=== PATIENT | male | born 1950 | race Caucasian/White ===

== ENCOUNTER 2019-11-23 07:20 | Outpatient (CLI) | payer OTHER, SELFPAY ==
--- NOTE | 2019-11-23 07:25 | USCV_ITS ---
BobbiBlayne Age: 68 Gender: M : 1950 Exam Date: 11/23/2019 07:32 Ordering Phys: Manan Hahn MD Technologist: Carol Hernandez Exam Location: [facility] – [place] Indication: Vision loss left eye Risk Factors: Smoker Previous Vascular Surgery: None Right Brachial BP: / Left Brachial BP: / Right Left Velocity (cm/s) Spectral Plaque Velocity (cm/s) Spectral Plaque Syst/Diast Broadening Syst/Diast Broadening 57.50/ 13.20 Prox CCA 72.60 / 18.80 59.00/ 17.10 Mid CCA 66.70 / 15.40 58.30/ 14.80 Distal CCA 62.40 / 18.80 43.50/ 16.30 Prox ICA 37.30 / 11.70 Hetro 52.80/ 21.00 Mid ICA 51.30 / 20.20 / Distal ICA 57.50 / 23.30 59.80 ECA 52.10 1.19 ICA/CCA 0.92 Antegrade Vertebral Antegrade 35.00/ 10.90 cm/s 27.20/ 9.60 cm/s Tri Subclavian Bi 66.00 60.70 FINDINGS Comparison: -2009. See measurements listed above. CONCLUSIONS Negative bilateral carotid Doppler ultrasound. Dr. Sandra Lopez MD (Electronically Signed) Final Date: 23 November 2019 08:12 S
== END 2019-11-23 07:21 | disposition home or self-care (01) ==
PROVIDERS: Family Provider Family Medicine; PCP Family Medicine; Visit Provider Family Medicine
DX: H54.62 Unqualified visual loss, left eye, normal vision right eye (principal)
CPT/HCPCS: 93880

== ENCOUNTER 2021-10-07 09:52 | Outpatient (CLI) | payer OTHER, SELFPAY ==
--- NOTE | 2021-10-07 | CT_ITS ---
WS: [id number] CT PELVIS WITH CONTRAST. HISTORY: LEFT INGUINAL MASS TECHNIQUE: Contiguous imaging is performed of the pelvis with contrast. Coronal and sagittal reformat s are reviewed. All CT scans at [facility] use at least one of these dose optimization techni ques: automated exposure control; mA and/or kV adjustment per patient size (includes targeted exams w here dose is matched to clinical indication); or iterative reconstruction. DLP: 970.84 mGycm COMPARISON: 01/31/2016 There is a large LEFT inguinal hernia. Hernia contains fat and portion of the descending colon. There is very mild narrowing of the lumen but no obstructive pattern. There is mild edema and a small amou nt of free fluid within the hernia sac. Mildly patent RIGHT inguinal canal with fat only. No herniated loops of bowel. The visualized colon and small bowel are tortuous with overlapping loops. Mild atherosclerosis within the distal aorta and iliac arteries. No free fluid or adenopathy within the pelvis. Urinary bladder is nondistended. Very mild prominence of the prostate gland. Anterior wedging of L4 with a Schmorl's node. CT/CT pelvis w con* [id number] IMPRESSION: 1. Large LEFT inguinal hernia containing fat and distal colon. There is small amount of fluid and small amount of edema within the hernia sac. There also may be a small amount of fat necrosis present. At this time there is no obstructio n but the lumen is narrowed. Patient is at risk for obstruction and ischemic ch deb. Follow-up with surgery recommended. 2. No GI tract obstruction.
[2021-10-07 11:54] LABS: Blood Urea Nitrogen 7 mg/dL (8-23); Glomerular Filtration Rate 83.4 mL/min (90-130)
== END 2021-10-07 09:53 | disposition home or self-care (01) ==
PROVIDERS: Visit Provider Nurse Practitioner
DX: K40.90 Unilateral inguinal hernia, without obstruction or gangrene, not specified as recurrent (principal)
CPT/HCPCS: 72193; 82565; 84520; Q9967

== ENCOUNTER 2022-10-06 07:35 | Outpatient (CLI) | payer OTHER, SELFPAY ==
--- NOTE | 2022-10-06 08:00 | USCV_ITS ---
Blayne Juarez Age: 71 Gender: M : 1950 Exam Date: 10/06/2022 07:59 Ordering Phys: Enrique Gentile M.D ([email or web address]) Technologist: [place] [facility] [place]: murmur BP: 135 / 73 HR: 68 Rhythm: Sinus Technical Quality: Adequate MEASUREMENTS (Male / Female) Normal Values 2D ECHO LV Diastolic Diameter PLAX 3.6 cm 4.2 - 5.9 / 3.9 - 5.3 cm LV Systolic Diameter PLAX 2.8 cm IVS Diastolic Thickness 1.4 cm 0.6 - 1.0 / 0.6 - 0.9 cm IVS Systolic Thickness 1.8 cm LVPW Diastolic Thickness 1.7 cm 0.6 - 1.0 / 0.6 - 0.9 cm LVPW Systolic Thickness 1.4 cm LVOT Diameter 2.0 cm LV Ejection Fraction 2D Teich 48.4 % LV Ejection Fraction MOD 2C 73.0 % LV Ejection Fraction 2C AL 72.9 % LA Diameter 4.7 cm M-MODE LV Diastolic Diameter MM 6.5 cm 4.2 - 5.9 / 3.9 - 5.3 cm LV Systolic Diameter MM 4.1 cm LV Ejection Fraction MM Teich 65.6 % IVS Diastolic Thickness MM 1.4 cm 0.6 - 1.0 / 0.6 - 0.9 cm IVS Systolic Thickness MM 2.0 cm LVPW Diastolic Thickness MM 1.7 cm 0.6 - 1.0 / 0.6 - 0.9 cm LVPW Systolic Thickness MM 2.2 cm RV Diastolic Diameter MM 2.4 cm Aortic Annulus Diameter 4.5 cm LA Ao Ratio MM 1.0 MV E Point Septal Separation 1.2 cm DOPPLER AV Peak Velocity 288.0 cm/s LVOT Peak Velocity 84.0 cm/s AV Area Cont Eq vti 0.9 cm squared AV Area Cont Eq pk 0.9 cm squared MV Area PHT 5.0 cm squared Mitral E to A Ratio 1.1 MV E' Velocity 45.5 cm/s Mitral E to MV E' Ratio 12.0 Mitral E to LV E' Lateral Ratio 11.5 Mitral E to LV E' Septal Ratio 12.7 TR Peak Velocity 299.8 cm/s TR Peak Gradient 35.9 mmHg TV Peak E Velocity 76.0 cm/s Right Atrial Pressure 3.0 mmHg Pulmonary Artery Systolic Pressu 38.9 mmHg FINDINGS Left Ventricle Left ventricle is normal in size. LV systolic function is normal with EF of 55 to 60%. No regional wall motion abnormalities are seen. Right Ventricle Normal in size and function Right Atrium Normal in size Left Atrium Normal in size Mitral Valve Structurally normal mitral valve. Trace mitral regurgitation Aortic Valve Not well visualized. Moderate to severe aortic stenosis with aortic valve area of 0.90cm2 and mean gradient across aortic valve of 20mmHg. Mild aortic regurgitation Tricuspid Valve Mild tricuspid regurgitation. Insufficient TR jet to evaluate RVSP Pulmonic Valve Not well-visualized Pericardium Normal Aorta Normal in size IVC CONCLUSIONS Technically limited quality echocardiogram because of poor ultrasonic windows. LV systolic function is normal with EF of 55 to 60%. Trace mitral regurgitation Moderate to severe aortic stenosis with aortic valve area of 0.90 cm calculated. Prosthetic valve with 20 mmHg Mild aortic regurgitation No comparison studies are available. Enrique Gentile MD (Electronically Signed) Final Date: 20 October 2022 09:22 S
== END 2022-10-06 07:36 | disposition home or self-care (01) ==
PROVIDERS: PCP Family Medicine; Visit Provider Internal Medicine
DX: I08.0 Rheumatic disorders of both mitral and aortic valves (principal); Z95.2 Presence of prosthetic heart valve; R06.02 Shortness of breath
CPT/HCPCS: 93306

== ENCOUNTER 2023-07-13 12:02 | Outpatient (CLI) | payer OTHER, SELFPAY ==
--- NOTE | 2023-07-13 12:15 | USCV_ITS ---
Blayne Martines Age: 72 Gender: M : 1950 Exam Date: 07/13/2023 12:51 Ordering Phys: Enrique Gentile M.D ([email or web address]) Technologist: NORIS Exam Location: [facility] [place] Indication: AORTIC STENOSIS BP: 130 / 86 HR: 68 Rhythm: Sinus Technical Quality: Poor secondary to COPD MEASUREMENTS (Male / Female) Normal Values 2D ECHO LVOT Diameter 2.0 cm LV Ejection Fraction MOD 2C 68.4 % LV Ejection Fraction 2C AL 69.4 % LA Width 3.2 cm LA Height 4.5 cm RA Width 3.4 cm RA Height 4.0 cm DOPPLER AV Peak Velocity 269.0 cm/s LVOT Peak Velocity 88.0 cm/s AV Area Cont Eq vti 1.1 cm squared AV Area Cont Eq pk 1.0 cm squared MV Peak Velocity 100.0 cm/s MV Area PHT 2.1 cm squared Mitral E to A Ratio 0.8 MV E' Velocity 32.0 cm/s Mitral E to MV E' Ratio 7.9 Mitral E to LV E' Lateral Ratio 8.3 Mitral E to LV E' Septal Ratio 7.6 TR Peak Velocity 166.3 cm/s TR Peak Gradient 11.1 mmHg TR Mean Velocity 144.6 cm/s TR Mean Gradient 8.3 mmHg TR Velocity Time Integral 53.0 cm TV Peak E Velocity 60.0 cm/s Right Atrial Pressure 8.0 mmHg Pulmonary Artery Systolic Pressu 19.1 mmHg FINDINGS Left Ventricle Technically limited quality echocardiogram because of poor ultrasonic windows. LV systolic function is normal with EF of 60-65%. No regional wall motion abnormalities are seen. Grade 1 diastolic dysfunction Right Ventricle Normal in size and function Right Atrium Normal in size Left Atrium Normal size Mitral Valve Grossly normal. Mild mitral regurgitation Aortic Valve Not well visualized. Moderate aortic stenosis with aortic valve area of 1 cm2 and mean gradient across aortic valve of 24 mmHg. Tricuspid Valve Trace tricuspid regurgitation. Insufficient TR jet to calculate RVSP. Pulmonic Valve Not well visualized Pericardium Normal Aorta Not well visualized IVC Not well visualized CONCLUSIONS Technically limited quality echocardiogram because of poor ultrasonic windows. LV systolic function is normal with EF of 60-65% Grade 1 diastolic dysfunction Aortic valve is not well-visualized. Moderate aortic stenosis with aortic valve area of 1 cm. Mean gradient across aortic valve of 24 mmHg. Trace tricuspid regurgitation Compared to prior echocardiogram from 10/06/2022, no significant changes are seen Enrique Gentile MD (Electronically Signed) Final Date: 30 July 2023 14:37 S
== END 2023-07-13 12:03 | disposition home or self-care (01) ==
PROVIDERS: PCP Family Medicine; Visit Provider Internal Medicine
DX: I35.0 Nonrheumatic aortic (valve) stenosis (principal); I25.10 Atherosclerotic heart disease of native coronary artery without angina pectoris; I51.89 Other ill-defined heart diseases
CPT/HCPCS: 93306

== ENCOUNTER → 2024-04-25 08:23 | Outpatient (CLI) | payer OTHER, SELFPAY ==
--- NOTE | 2024-04-25 08:45 | USCV_ITS ---
Blayne Martines Age: 73 Gender: M : 1950 Exam Date: 04/25/2024 08:29 Ordering Phys: Enrique Gentile M.D ([email or web address]) Technologist: NORIS Exam Location: [facility] – [place] Indication: AORTIC STENOSIS BP: 122 / 64 HR: 65 Rhythm: Sinus Technical Quality: Suboptimal MEASUREMENTS (Male / Female) Normal Values 2D ECHO LV Ejection Fraction MOD 2C 67.1 % LV Ejection Fraction 2C AL 69.0 % RA Systolic Volume 4C AL 19.4 ml RA Systolic Volume 4C MOD 17.6 ml LA Sys Volume AL 26.1 cm cubed LA Sys Volume Index AL 11.6 cm cubed/m squared DOPPLER AV Peak Velocity 292.0 cm/s LVOT Peak Velocity 106.0 cm/s MV Peak Velocity 98.0 cm/s MV Area PHT 2.3 cm squared Mitral E to A Ratio 0.9 TR Peak Velocity 182.0 cm/s TR Peak Gradient 13.2 mmHg TR Mean Velocity 143.0 cm/s TR Mean Gradient 9.2 mmHg TR Velocity Time Integral 49.1 cm TV Peak E Velocity 67.0 cm/s FINDINGS Left Ventricle Normal left ventricular size, systolic function and wall thickness, with no regional wall motion abnormalities. Left ventricular ejection fraction is estimated at 60 %. Grade I/IV diastolic dysfunction (abnormal relaxation filling pattern), normal to mildly elevated filling pressures. Right Ventricle The right ventricle is normal in size and function. Right Atrium The right atrium is normal in size. Left Atrium The left atrium is normal in size. Mitral Valve Structurally normal mitral valve without significant stenosis or prolapse. There is no mitral regurgitation. Aortic Valve Structurally normal aortic valve without significant sclerosis or stenosis. There is no aortic regurgitation. Tricuspid Valve Structurally normal tricuspid valve without significant stenosis or regurgitation. Pulmonary artery systolic pressure is normal. Pulmonic Valve Structurally normal pulmonic valve without significant stenosis. There is no pulmonic regurgitation. Pericardium Normal pericardium without effusion. Aorta Normal ascending aorta dimension. IVC The inferior vena cava appears normal. CONCLUSIONS 1-Normal left ventricular size, systolic function and wall thickness, with no regional wall motion abnormalities. Left ventricular ejection fraction is estimated at 60 %. Grade I/IV diastolic dysfunction (abnormal relaxation filling pattern), normal to mildly elevated filling pressures. 2-No significant valve abnormalities. 3-There is no pericardial effusion. 4-Right atrial pressure is around 5 mm of mercury. Deisi Hernandez MD (Electronically Signed) Final Date: 25 April 2024 21:27 S
== END | disposition home or self-care (01) ==
LOC: RAD 08:22
PROVIDERS: PCP Family Medicine; Visit Provider Internal Medicine
DX: I50.30 Unspecified diastolic (congestive) heart failure (principal)
CPT/HCPCS: 93306

== ENCOUNTER 2024-12-08 17:04 | Inpatient (IN) | payer OTHER, SELFPAY ==
[2024-12-08] VITALS (15 sets, daily range): BP systolic 99–121; BP diastolic 49–94; PULSE 82–102; RESP 16–20; TEMP 37.1–39.1; O2SAT 90–94; BMI 27.8
--- NOTE | 2024-12-08 17:18 | ECG_ITS ---
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 Measurements Intervals [place] Rate: 100 P: 71 MO: 167 QRS: 61 QRSD: 85 T: 73 QT: 322 QTc: 416 Interpretive Statements SINUS TACHYCARDIA MINIMAL ST DEPRESSION [0.025+ mV ST DEPRESSION] Compared to ECG 11/05/2015 05:24:13 ST (T wave) deviation now present Sinus bradycardia no longer present Electronically Signed On 12-09-2024 13:17:53 EXTRUSION FORMER by Enrique Gentile M.D. [email or web address]
--- NOTE | 2024-12-08 17:18 | XRR_ITS ---
PROCEDURE INFORMATION: Exam: XR Chest Exam date and time: 12/08/2024 6:43 PM Age: 73 years old Clinical indication: Shortness of breath; SOB TECHNIQUE: Imaging protocol: Radiologic exam of the chest. Views: 1 view. COMPARISON: No relevant prior studies available. FINDINGS: Lungs: Severe hyperinflation. Mild interstitial prominence and probable mild fibrosis. Pulmonary vascularity is within normal limits. No consolidation. Pleural spaces: Unremarkable. No pleural effusion. No pneumothorax. Heart/Mediastinum: Unremarkable. No cardiomegaly. Bones/joints: No acute abnormality. XR/XR chest 1V portable [id number] IMPRESSION: No acute findings.
[2024-12-08 17:45] LABS: Basophils % 0.8 %; Eosinophils % 0.4 %; Hematocrit 42.3 % (37-53); Lymphocytes # 0.2 10^3/uL (0.8-4.8); Lymphocytes % 4.9 %; Mean Corpuscular HGB Conc 33.6 g/dL (30-55); Mean Corpuscular Hemoglobin 32.9 pg (27-33); Mean Corpuscular Volume 98.1 fl (82-101); Mean Platelet Volume 9.1 fL (7.4-10.4); Monocytes # 0.3 10^3/uL (0.2-0.9); Monocytes % 6.7 %; Neutrophils # 4.25 10^3/uL (1.8-7.7); Nucleated Red Blood Cells % 0 %; Platelet Count 110 10^3/cmm (157-399); Red Blood Count 4.31 10^6/uL (3.85-5.65); Red Cell Distribution Width 13.2 % (12.1-15.1); White Blood Count 4.89 10^3/uL (3.29-11.43)
--- NOTE | 2024-12-08 17:50 | W.ED.SOB ---
HPI - SOB/Dyspnea General: Chief Complaint: Shortness of Breath/Dyspnea Stated Complaint: SOB Time Seen by Provider: 12/08/24 17:43 History of Present Illness: HPI Narrative: 73-year-old man with a history of tobacco dependence coronary artery disease, hyperlipidemia and obstructive sleep apnea who presents emergency room with shortness of breath. He is febrile on presentation. says he has been somewhat confused. Symptoms started yesterday. He has had increased cough. Increase shortness of breath. No chest pain. No abdominal pain. No vomiting. Related Data Previous Rx's Medication Instructions Recorded aspirin 81 mg tablet,delayed 81 mg PO DAILY #90 tabs 02/24/24 release nitroglycerin 0.4 mg sublingual 0.4 mg sublingual Q5M PRN chest 02/24/24 tablet pain #25 tabs Allergies Allergy/AdvReac Type Severity Reaction Status Date / Time No Known Allergies Allergy Verified 12/08/24 17:11 Review of Systems Narrative: Constitutional symptoms: Negative except as documented in HPI. Skin symptoms: Negative except as documented in HPI. Eye symptoms: Negative except as documented in HPI. ENMT symptoms: Negative except as documented in HPI. Respiratory symptoms: Negative except as documented in HPI. Cardiovascular symptoms: Negative except as documented in HPI. Gastrointestinal symptoms: Negative except as documented in HPI. Genitourinary symptoms: Negative except as documented in HPI. Musculoskeletal symptoms: Negative except as documented in HPI. Neurologic symptoms: Negative except as documented in HPI. Psychiatric symptoms: Negative except as documented in HPI. Endocrine symptoms: Negative except as documented in HPI. [facility] ED PFSH: Medical History Thrombocytopenia Tobacco abuse SAMY (obstructive sleep apnea) ASHD (arteriosclerotic heart disease) Dyslipidemia Myocardial infarction Surgical History S/P PTCA (percutaneous transluminal coronary angioplasty) Family History Father Parkinson disease Social History Smoking and tobacco/nicotine status: current every day tobacco/nicotine user cigarettes Packs smoked per day: 1.5 Alcohol intake: current Alcohol intake frequency: holidays/special occasions only Household members: spouse Marital status: service: No Current occupational status: employed Current gender identity: Male Physical Exam Narrative: EXAM NARRATIVE: General: Alert, no acute distress. Skin: Warm, dry. Head: Normocephalic, atraumatic. Neck: Supple, trachea midline. Eye: Extraocular movements are intact. Ears, nose, mouth and throat: Oral mucosa moist. Cardiovascular: Regular rate and rhythm, Normal peripheral perfusion. Respiratory: coarse, scattered wheeze, mild increased wob. tachypnea, breath sounds are equal, Symmetrical chest wall expansion. Gastrointestinal: Soft, Nontender, Non distended, Normal bowel sounds. Musculoskeletal: Normal ROM, no deformity. Neurological: Alert and oriented to person, No focal neurological deficit observed. Psychiatric: Cooperative, appropriate mood & affect. Course Vital Signs: Vital signs: Vital Signs Temperature 100.7 F H 12/08/24 19:15 Pulse Rate 100 12/08/24 20:32 Respiratory Rate 18 12/08/24 20:32 Blood Pressure 100/63 12/08/24 20:32 Pulse Oximetry 90 12/08/24 20:32 Oxygen Delivery Me thod Nasal Cannula 12/08/24 19:06 Oxygen Flow Rate 2 12/08/24 19:06 MDM - SOB/Dyspnea Medical Decision Making Differential diagnosis for patient with shortness of breath includes but is not limited to and based on the above HPI, review of systems and physical exam: Pneumonia. Bronchitis. Asthma or COPD with acute exacerbation. Acute coronary syndrome / [place]. Pulmonary embolism. Anxiety. Congestive heart failure. Viral infections including influenza and Covid-19. Atrial fibrillation. Anxiety. Pleural effusion. Pneumothorax. Orders placed to evaluate differential diagnosis based on the above differential, HPI and physical exam Chest x-ray: No acute process. No infiltrate. No pneumothorax. This was reviewed and interpreted by myself the emergency room physician. I also reviewed the radiology report. Lab Review: Laboratory results were reviewed and interpreted by myself the emergency room physician. No leukocytosis. No anemia. No renal failure. Sodium is a bit low at 129. Patient is positive for influenza. I reviewed the patient's medical record. Reexamination: Patient has had a continued increasing oxygen requirements. Still with quite a bit of wheeze. Mild increased work of breathing. Has had increased oxygen requirements up to 4 L nasal cannula now. Consultation: I spoke with Dr. Landeros who is on-call for the hospitalist service who agrees to admission. Assessment and plan: Influenza A Hypoxemia Tobacco dependence COPD with acute exacerbation Fever ?IV Solu-Medrol, IV doxycycline. IV Tylenol. Updrafts. Patient has had some increased oxygen requirements and is now on 4 L. -I discussed the patient with the hospitalist on-call who is admitting the patient. - Discussed findings and plan with patient. Answered any questions. - All laboratory values were reviewed and interpreted personally by myself, the ER physician - All imaging was reviewed and interpreted personally by myself, the ER physician. - Evaluation and treatment of this problem were appropriate in the emergency setting Critical care -I spent a total of >35 minutes of critical care time managing the patient, independent of any other practitioner. -The time involved in the performance of separately reportable procedures was not counted towards critical care time. Lab Data 12/08/24 17:36 12/08/24 17:36 Labs/Radiology: Radiology Impressions Chest X-Ray 12/08/24 17:18 IMPRESSION: No acute findings. Laboratory Results WBC 4.89 10^3/uL (3.29-11.43) 12/08/24 17:36 RBC 4.31 10^6/uL (3.85-5.65) 12/08/24 17:36 Hgb 14.20 g/dL (11.27-16.99) 12/08/24 17:36 Hct 42.3 % (37-53) 12/08/24 17:36 MCV 98.1 fl (82-101) 12/08/24 17:36 MCH 32.9 pg (27-33) 12/08/24 17:36 MCHC 33.6 g/dL (30-55) 12/08/24 17:36 RDW 13.2 % (12.1-15.1) 12/08/24 17:36 Plt Count 110 10^3/cmm (157-399) L 12/08/24 17:36 MPV 9.1 fL (7.4-10.4) 12/08/24 17:36 Neut % (Auto) 87.0 % 12/08/24 17:36 Lymph % (Auto) 4.9 % 12/08/24 17:36 Stanley % (Auto) 6.7 % 12/08/24 17:36 Eos % (Auto) 0.4 % 12/08/24 17:36 Baso % (Auto) 0.8 % 12/08/24 17:36 Neut # (Auto) 4.25 10^3/uL (1.8-7.7) 12/08/24 17:36 Lymph # (Auto) 0.2 10^3/uL (0.8-4.8) L 12/08/24 17:36 Stanley # (Auto) 0.3 10^3/uL (0.2-0.9) 12/08/24 17:36 Eos # (Auto) 0.0 10^3/uL (0.0-0.8) 12/08/24 17:36 Baso # (Auto) 0.0 10^3/uL (0.0-0.1) 12/08/24 17:36 Nucleated RBC % (auto) 0 % 12/08/24 17:36 Nucleated RBCs # 0.0 /100WBC 12/08/24 17:36 Specimen Type Arterial 12/08/24 17:52 Sample Site Radial, right 12/08/24 17:52 ABG pH 7.45 (7.35-7.45) 12/08/24 17:52 ABG pCO2 33.6 mmHg (35-45) L 12/08/24 17:52 ABG pO2 64.6 mmHg (80.0-100.0) L 12/08/24 17:52 ABG HCO3 23.1 mmol/L (22-26) 12/08/24 17:52 ABG O2 Saturation 95.0 12/08/24 17:52 ABG Base Excess -0.3 mmol/L (-2.0-2.0) 12/08/24 17:52 Sean Test Pos 12/08/24 17:52 A-a O2 Gradient 5.5 mmHg (5-10) 12/08/24 17:52 Hematocrit 45.0 % (42-52) 12/08/24 17:52 Hgb O2 Saturation 91.9 % (95-100) L 12/08/24 17:52 Carboxyhemoglobin 2.3 %THgb (0.4-20.1) 12/08/24 17:52 Methemoglobin 0.9 % (0.4-1.5) 12/08/24 17:52 Total Hemoglobin 14.7 g/dL (14-18) 12/08/24 17:52 Sodium 131.0 mmol/L (131-143) 12/08/24 17:52 Potassium 3.9 mmol/L (3.5-5.0) 12/08/24 17:52 Glucose 110.0 mg/dL (70-115) 12/08/24 17:52 Ionized Calcium 1.2 mmol/L (1.1-1.4) 12/08/24 17:52 O2 Delivery Device Nc 12/08/24 17:52 O2 Liters/Min 2.0 % 12/08/24 17:52 In Home Sales Consultant ID [employer] 12/08/24 17:52 Sodium 129 mmol/L (136-145) L 12/08/24 17:36 Potassium 4.3 mmol/L (3.5-5.1) 12/08/24 17:36 Chloride 94 mmol/L (98-107) L 12/08/24 17:36 Carbon Dioxide 23 mmol/L (22-29) 12/08/24 17:36 Anion Gap 16.3 (5-19) 12/08/24 17:36 BUN 14 mg/dL (8-23) 12/08/24 17:36 Creatinine 1.0 mg/dL (0.7-1.2) 12/08/24 17:36 GFR Calculation Not Reportable 12/08/24 17:36 Glucose 109 mg/dL (65-115) 12/08/24 17:36 Calculated Osmolality 269 mOsm/kg (285-295) L 12/08/24 17:36 Lactic Acid 2.2 mmol/L (0.5-2.2) 12/08/24 17:36 Lactic Acid (Sepsis) 2.5 mmol/L (0.5-2.2) H 12/08/24 18:24 Calcium 8.5 mg/dL (8.5-10.5) 12/08/24 17:36 Total Bilirubin 1.9 mg/dL (0.15-1.2) H 12/08/24 17:36 AST 56 U/L (0-40) H 12/08/24 17:36 ALT 31 U/L (0-41) 12/08/24 17:36 Alkaline Phosphatase 164 U/L (40-130) H 12/08/24 17:36 C-Reactive Protein 15.9 mg/L (0.0-4.9) H 12/08/24 17:36 NT-Pro-B Natriuret Pep 266 pg/mL (0-125) H 12/08/24 17:36 Total Protein 6.7 g/dL (6.6-8.7) 12/08/24 17:36 Albumin 3.4 g/dL (3.5-5.2) L 12/08/24 17:36 Globulin 3.3 g/dL (1.3-4.6) 12/08/24 17:36 Procalcitonin 0.20 ng/mL (0-0.5) 12/08/24 17:36 Urine Color Dickey (Yellow) A 12/08/24 18:28 Urine Appearance Clear (CLEAR) 12/08/24 18:28 Urine pH 5.5 (5-7) 12/08/24 18:28 Ur Specific [place] 1.030 (1.005-1.030) 12/08/24 18:28 Urine Protein 1+ (Negative) A 12/08/24 18:28 Urine Glucose (UA) Negative (Normal) 12/08/24 18:28 Urine Ketones Negative (Negative) 12/08/24 18:28 Urine Blood Negative (Negative) 12/08/24 18:28 Urine Nitrate Negative (Negative) 12/08/24 18:28 Urine Bilirubin 1+ (Negative) H 12/08/24 18:28 Urine Urobilinogen 2.0 mg/dL (Negative) H 12/08/24 18:28 Ur Leukocyte Esterase Negative (Negative) 12/08/24 18:28 Urine RBC 0-2 /hpf (0-2) 12/08/24 18:28 Urine WBC 0-5 /hpf (0-5) 12/08/24 18:28 Ur Squamous Epith Cells 0-5 /hpf (0-5) 12/08/24 18:28 Amorphous Sediment Not Reportable 12/08/24 18:28 Urine Bacteria None seen /hpf (NONE) 12/08/24 18:28 Hyaline Casts 1.21 /lpf 12/08/24 18:28 Coronavirus (PCR) Negative (Negative) 12/08/24 17:55 Influenza A (PCR) Positive (Negative) 12/08/24 17:55 Influenza Type B (PCR) Negative (Negative) 12/08/24 17:55 RSV (PCR) Negative (Negative) 12/08/24 17:55 All radiology interpretation(s) finalized by discharge Discharge Plan Discharge Condition: Stable Prescriptions: No Action aspirin 81 mg tablet,delayed release (DR/EC) 81 mg PO DAILY Qty: 90 0RF nitroglycerin 0.4 mg tablet, sublingual 0.4 mg sublingual Q5M PRN (Reason: chest pain) Qty: 25 2RF Rx Instructions: do not exceed 3 doses per episode Referrals: Trisha Song MD [Primary Care Provider] - Coding Level of Care Code ED School Based Therapist for Douglas Arciniega
[2024-12-08 18:00] LABS: Lactic Sepsis W/Reflex 2.2 mmol/L (0.5-2.2)
[2024-12-08] MEDS: methylPREDNISolone sod succ 125 mg/2 mL INJ IVP (18:00)
[2024-12-08 18:03] LABS: ABG PCO2 33.6 mmHg (35-45); ABG PH Result 7.45 (7.35-7.45); Alveolar-Arterial Oxygen Gradi 5.5 mmHg (5-10); Base Excess ABG -0.3 mmol/L (-2.0-2.0); Blood Gas Allen Test Pos; Blood Gas Operator Identificat WALCI; Blood Gas Sample Site Radial, right; Blood Gas Sample Type Arterial; Carboxyhemoglobin 2.3 %THgb (0.4-20.1); HCO3 ABG 23.1 mmol/L (22-26); HGB O2 Sat 91.9 % (95-100); Ionized Calcium Level - ABG 1.2 mmol/L (1.1-1.4); Methemoglobin 0.9 % (0.4-1.5); Oxygen Device NC; PO2 ABG 64.6 mmHg (80.0-100.0); Potassium Level - ABG 3.9 mmol/L (3.5-5.0); Total Hemoglobin 14.7 g/dL (14-18)
[2024-12-08 18:04] LABS: Reflex Lactate Order REFLEX LACTIC ORDERD
[2024-12-08] MEDS: albuterol 2.5 mg/3 mL Neb INHALATION (18:05)
[2024-12-08] MEDS: ipratropium-albuterol 3 mL Neb INHALATION (18:05)
[2024-12-08 18:12] LABS: Alanine Aminotransferase 31 U/L (0-41); Albumin Level 3.4 g/dL (3.5-5.2); Alkaline Phosphatase 164 U/L (40-130); Anion Gap 16.3 (5-19); Aspartate Amino Transferase 56 U/L (0-40); Blood Urea Nitrogen 14 mg/dL (8-23); Calcium 8.5 mg/dL (8.5-10.5); Carbon Dioxide 23 mmol/L (22-29); Chloride 94 mmol/L (98-107); Creatinine Clr Calc Pharmacy 77.9381; Globulin 3.3 g/dL (1.3-4.6); Glucose 109 mg/dL (65-115); NT Pro B Type Natriuretic Pept 266 pg/mL (0-125); Osmolality Calculated 269 mOsm/kg (285-295); Potassium 4.3 mmol/L (3.5-5.1); Sodium 129 mmol/L (136-145); Total Bilirubin 1.9 mg/dL (0.15-1.2); Total Protein 6.7 g/dL (6.6-8.7)
[2024-12-08 18:22] LABS: C Reactive Protein 15.9 mg/L (0.0-4.9)
[2024-12-08 18:39] LABS: Bilirubin Urine 1+ (Negative); Blood Urine Negative (Negative); Glucose Urine UA Negative (Normal); Ketones Urine Negative (Negative); Leukocyte Esterase Urine Negative (Negative); Nitrate Urine Negative (Negative); Protein Urine 1+ (Negative); Urine Appearance Clear (CLEAR); pH Urine 5.5 (5-7)
[2024-12-08 18:42] LABS: Bacteria Urine None Seen /hpf; Hyaline Casts Urine 1.21 /lpf; RBC Urine 0-2 /hpf (0-2); Squamous Epithelial Cell Urine 0-5 /hpf (0-5); WBC Urine 0-5 /hpf (0-5)
[2024-12-08 18:45] LABS: Urine Color Orange (Yellow)
[2024-12-08 19:06] LABS: Lactic Acid level (Lactate) 2.5 mmol/L (0.5-2.2)
--- NOTE | 2024-12-08 19:12 | PC.NURSE ---
oxygen increased to 3L NC due to consistent saturations 89-90% on 2L, Pt saturation improved to 91%
[2024-12-08 19:21] LABS: Covid PCR NEGATIVE (Negative); Influenza A POSITIVE (Negative); Influenza B NEGATIVE (Negative); Respiratory Syncytial Virus Ce NEGATIVE (Negative)
[2024-12-08] MEDS: doxycycline 100 MG in sodium chloride 0.9% (plus) 100 ML IV (20:07)
--- NOTE | 2024-12-08 20:31 | PC.NURSE ---
Pt was placed on 4L NC due to continued saturation 89-90% on 3L
[2024-12-08] MEDS: acetaminophen 1,000 MG/100 ML PIGGYBACK 400 MG IV (20:46)
--- NOTE | 2024-12-08 22:38 | PC.NURSE ---
Bladder scan completed and shows 96ml urine in bladder, assisted pt in standing to urinate, pt only able to urinate about 20 ml dark yellow/tea color urine
--- NOTE | 2024-12-08 23:01 | P.HP_ITS ---
Providers/Chief Complaint 2 Admitting Physician: Deisi Landeros MD Primary Care Provider: Trisha Song MD Chief Complaint: SOB History of Present Illness Blayne Martines Jr is a 73 year old male Who has been sick for last 24 hours presented to the hospital worsening shortness of breath cough and hypoxia. At baseline patient does not use any oxygen at home, does not have any history of diabetes. Has history of coronary disease. He does have official diagnosis of sleep apnea but does not use any CPAP at night. Patient is stating that he has been coughing a lot since yesterday and today his symptoms got worse. He is extremely fatigued lethargic. He has not noticed any diarrhea but endorsing fever with excessive bouts of cough. In the ER he has been diagnosed with influenza A requiring 2 L of oxygen. Patient does have history of diastolic congestive heart failure he has received judicious IV fluid in the ER, 2 L Patient clinically looks dehydrated with hyponatremia, Review of Systems 2 Const: Reports: fever(s) Eyes: Denies: change in vision ENMT: Denies: throat pain Card: Denies: chest pain Resp: Reports: dyspnea GI: Denies: abdominal pain : Reports: urinary dribbling Medications/Allergies Home Medications Medication Instructions Recorded Confirmed Last Taken Type aspirin 81 mg tablet,delayed 81 mg PO DAILY #90 tabs 02/24/24 07/24/24 Unknown Rx release nitroglycerin 0.4 mg sublingual 0.4 mg sublingual Q5M PRN chest 02/24/24 07/24/24 Unknown Rx tablet pain #25 tabs Allergies Allergy/AdvReac Type Severity Reaction Status Date / Time No Known Allergies Allergy Verified 12/08/24 17:11 PFSH Acute 2 PFSH: Medical History Thrombocytopenia Tobacco abuse SAMY (obstructive sleep apnea) ASHD (arteriosclerotic heart disease) Dyslipidemia Myocardial infarction Surgical History S/P PTCA (percutaneous transluminal coronary angioplasty) Family History Father Parkinson disease Social History Smoking and tobacco/nicotine status: current every day tobacco/nicotine user cigarettes Packs smoked per day: 1.5 Alcohol intake: current Alcohol intake frequency: holidays/special occasions only Household members: spouse Marital status: service: No Current occupational status: employed Current gender identity: Male Vitals/I&O/Wt Last Vital Signs Temp 99.3 F 12/08/24 21:30 Pulse 100 12/08/24 22:08 Resp 16 12/08/24 22:08 BP 107/49 12/08/24 21:26 Pulse Ox 90 12/08/24 22:08 O2 Del Method Nasal Cannula 12/08/24 19:06 O2 Flow Rate 2 12/08/24 19:06 12/08/24 12/08/24 12/09/24 14:59 22:59 06:59 Intake Total 200 / 200 Balance 200 / 200 Weight last 48 hrs Weight 92.986 kg Physical Exam 2 Narrative: Patient clinically dehydrated Currently on 2 L Tachycardia Awake and alert Nonfocal neuroexam Generalized weakness and fatigue Mild rhonchi on lung auscultation Abdomen soft Lower extremity no edema Pleasant and cooperative No sign of meningitis Awake and alert AO x 4 at the bedside Data 12/08/24 17:36 12/08/24 17:36 Micro: Microbiology 12/08/24 18:26 Blood Culture - Preliminary Blood SPECIMEN COLLECTED 12/08/24 18:24 Blood Culture - Preliminary Blood SPECIMEN COLLECTED A&P Assessment and plan (1) SAMY (obstructive sleep apnea): (2) Hypoxia: (3) Influenza A: (4) Sepsis: Plan Sepsis related to influenza A Hypoxia/acute onset Criteria met with fever tachypnea tachycardia lactic acid Endorgan damage requiring oxygen Will give judicious IV fluids because of patient's diastolic heart failure history Will give 2 L IV bolus Patient has cap refill less than 3 seconds No signs of skin mottling Low blood pressure with hyponatremia Continue IV fluids overnight Add Tamiflu Check procalcitonin, hold off on antibiotics Add IV steroids DuoNeb treatment Patient has history of coronary disease No active chest pain History of obstructive sleep apnea does not use CPAP or oxygen at home DVT prophylaxis Lovenox Cardiac diet Check D-dimer, procalcitonin AST higher than ALT check alcohol level Will give him antitussive and cough suppressant Repeat lactic acid in the morning Attestations 2 Medical Necessity Statement*: More than 2 midnights anticipated Diagnoses SAMY (obstructive sleep apnea) G47.33 Hypoxia R09.02 Influenza A J10.1 Sepsis A41.9
[2024-12-08] MEDS: guaiFENesin-codeine UDC 10 mL 5 ML PO (23:49)
[2024-12-08] MEDS: enoxaparin 40 mg/0.4 mL Syringe SUBCUT (23:49)
[2024-12-08] MEDS: sodium chloride 0.9% 1,000 ML 999 ML IV (23:50)
[2024-12-09] VITALS (11 sets, daily range): BP systolic 95–102; BP diastolic 50–61; PULSE 65–91; RESP 16–20; TEMP 36.6–36.9; O2SAT 91–97; BMI 27.3
[2024-12-09 00:17] LABS: D Dimer 2.46 ug/mLFEU (0-0.59)
[2024-12-09 00:28] LABS: Procalcitonin 0.28 ng/mL (0-0.5); Thyroid Stimulating Hormone 0.43 uIU/mL (0.27-4.20)
[2024-12-09] MEDS: sodium chloride 0.9% 1,000 ML 999 ML IV (00:45)
[2024-12-09] MEDS: oseltamivir phosphate 75 mg Capsule PO ×3 (01:02→17:17)
[2024-12-09] MEDS: benzonatate 100 mg Capsule 200 MG PO ×2 (01:02→11:42)
[2024-12-09] MEDS: sodium chloride 0.9% 1,000 ML 75 ML IV (01:43)
[2024-12-09 02:30] LABS: Basophils % 0.5 %; Eosinophils # 0.1 10^3/uL (0.0-0.8); Eosinophils % 2.9 %; Hematocrit 35.8 % (37-53); Lymphocytes # 0.2 10^3/uL (0.8-4.8); Lymphocytes % 5.2 %; Mean Corpuscular HGB Conc 33.2 g/dL (30-55); Mean Corpuscular Hemoglobin 33.1 pg (27-33); Mean Corpuscular Volume 99.4 fl (82-101); Mean Platelet Volume 9.6 fL (7.4-10.4); Monocytes # 0.1 10^3/uL (0.2-0.9); Monocytes % 3.3 %; Neutrophils # 3.68 10^3/uL (1.8-7.7); Neutrophils % 87.6 %; Nucleated Red Blood Cells % 0 %; Platelet Count 82 10^3/cmm (157-399); Red Cell Distribution Width 13.4 % (12.1-15.1)
[2024-12-09 02:57] LABS: Lactic Sepsis W/Reflex 2.5 mmol/L (0.5-2.2)
[2024-12-09 02:58] LABS: Anion Gap 13.1 (5-19); Blood Urea Nitrogen 15 mg/dL (8-23); C Reactive Protein 26.9 mg/L (0.0-4.9); Calcium 7.6 mg/dL (8.5-10.5); Carbon Dioxide 21 mmol/L (22-29); Chloride 99 mmol/L (98-107); Creatinine Clr Calc Pharmacy 77.3642; Glucose 121 mg/dL (65-115); Magnesium 1.8 mg/dL (1.7-2.3); Osmolality Calculated 270 mOsm/kg (285-295); Phosphorus 2.8 mg/dL (2.5-4.5); Potassium 4.1 mmol/L (3.5-5.1); Sodium 129 mmol/L (136-145)
[2024-12-09 04:15] LABS: Reflex Lactate Order REFLEX LACTIC ORDERD
[2024-12-09 04:50] LABS: Alcohol Level < 10 mg/dL (0-10)
[2024-12-09 05:05] LABS: Vitamin B12 350 pg/mL (232-1245)
[2024-12-09] MEDS: methylPREDNISolone sod succ 40 mg/mL INJ IVP ×2 (05:24→17:16)
[2024-12-09 06:18] LABS: Lactic Acid level (Lactate) 1.6 mmol/L (0.5-2.2)
[2024-12-09] MEDS: sennosides-docusate Tablet 1 TAB PO (08:18)
[2024-12-09] MEDS: nicotine 21 mg Patch 1 PATCH TRANSDERMA (08:18)
[2024-12-09] MEDS: ipratropium-albuterol 3 mL Neb INHALATION ×3 (09:09→21:55)
--- NOTE | 2024-12-09 10:25 | P.PN_ITS ---
Subjective 2 Subjective: Patient reports continued shortness of breath and cough. Requiring new supplemental oxygen support. He reports that he did receive the influenza vaccine this season. Spouse is bedside and seems very supportive. Medications: Reviewed: Yes Vitals/I&O/Wt Last Vital Signs Temp 98 F 12/09/24 08:00 Pulse 91 12/09/24 09:12 Resp 18 12/09/24 09:12 BP 102/56 12/09/24 08:00 Pulse Ox 95 12/09/24 09:12 O2 Del Method Nasal Cannula 12/09/24 09:12 O2 Flow Rate 2 12/09/24 09:12 12/08/24 12/09/24 12/09/24 22:59 06:59 14:59 Intake Total 200 / 200 1915.75 / 5.75 Output Total 275 / 275 Balance 200 / 200 1915.75 / 5.75 -275 / -275 Weight last 48 hrs Weight 92.397 kg Weight 91.444 kg Weight 92.986 kg Physical Exam 2 Narrative: General: Patient is awake. Ill-appearing. Head: Normocephalic. Atraumatic. EOM intact. Dry mucous membranes. Neck: No JVD. Cardiovascular: RRR. No gallops. No murmurs. Lungs: Breath sounds are coarse. Diffuse end expiratory wheezing present. Conversational dyspnea. Intermittent coughing throughout exam. No rales or rhonchi. On supplemental oxygen support. Skin: No jaundice. No rashes. Abdomen: Normal bowel sounds, abdomen soft and nontender. Genito Urinary: Genital exam not performed since complaints not related. Rectal: Rectal exam not performed since no symptoms indicated blood loss. Extremities: No cyanosis or clubbing. Musculoskeletal: No swollen or erythematous joints. Neurological: Moves all 4 extremities. No myoclonus. Data 12/09/24 02:22 12/09/24 02:22 Micro: Microbiology 12/08/24 18:26 Blood Culture - Preliminary Blood SPECIMEN COLLECTED 12/08/24 18:24 Blood Culture - Preliminary Blood SPECIMEN COLLECTED A&P Assessment and plan (1) Influenza A: Influenza A infection Droplet precautions Continue Tamiflu Continue IV systemic steroids Start scheduled breathing treatments due to significant wheezing Symptomatic support (2) Hypoxia: Acute hypoxic respiratory insufficiency in the setting of influenza A infection Continue supplemental oxygen support, wean as tolerated Treat underlying fraction (3) Sepsis: Sepsis secondary to influenza A infection Monitor for evidence of bacterial infection Follow cultures Status post IV fluid resuscitation Monitoring hemodynamics closely (4) SAMY (obstructive sleep apnea): Does not use CPAP Plan DVT prophylaxis: Lovenox Attestations 2 Medical Necessity Statement*: Patient requires ongoing hospitalization for IV steroids, breathing treatments, following of cultures, supplemental oxygen support, and supportive care. Coding Level of Care Code Acute Code for [facility] Diagnoses Influenza A J10.1 Hypoxia R09.02 Sepsis A41.9 SAMY (obstructive sleep apnea) G47.33
--- NOTE | 2024-12-09 11:11 | PC.CHAP ---
Pastoral Care Encounter/Spiritual Assessment Type of Contact [] Declined web operations administrator visit [] Patient/Family/Request visit [] Outpatient visit [] Follow-up visit [] Physician referral [] Code/Alert [] Routine visit [] Staff referral [] Actively dying [] Patient sleeping [] Family support [] [] Out of room [] Palliative care [] [] Receiving care in room [] Pre-surgical visit [] Trauma [] Long length of stay [] ICU visit [] Other:Stop Relational/Emotional Strength [] Patient feels connected with others/family/visitors/staff [] Distress [] Loneliness/isolation [] Abandonment Spirituality of Patient [] Person of Demetrice [] Attends Scientology of their Demetrice [] Believes in Prayer [] Reads Bible or Episcopalian materials [] There are Spiritual issues to be addressed Account Services Manager Interventions [] Prayer [] Active listening [] Non-anxious presence [] Spiritual/emotional support [] Crisis/trauma care [] Spiritual counseling [] Bereavement support [] Provided bereavement packet [] Provided Bible/devotional materials [] Provided toy/stuffed animal, coloring book to patient or family member [] Provided Communion [] Anointing/Turner [] Salvation [] Completed spiritual assessment [] Other: Impact on Illness or Injury [] Angry [] Fearful [] Anxious [] Often cries [] Exhaustion [] Unable to work [] Unable to attend restorationism [] Unable to walk/stand [] Unable to read [] Unable to drive [] Unable to eat/drink [] Unable to sleep [] Unable to be with family [] Patient intubated [] Other: Summary Time spent with patient
[2024-12-09] MEDS: enoxaparin 40 mg/0.4 mL Syringe SUBCUT (22:23)
[2024-12-09] MEDS: guaiFENesin 100 mg/5 mL UDC 10 mL 200 MG PO (22:27)
[2024-12-10] VITALS (8 sets, daily range): BP systolic 100–113; BP diastolic 50–71; PULSE 65–103; RESP 17–22; TEMP 36.4–36.7; O2SAT 4–99
[2024-12-10] MEDS: ipratropium-albuterol 3 mL Neb INHALATION ×2 (02:52→09:02)
[2024-12-10 03:59] LABS: Albumin Level 2.9 g/dL (3.5-5.2); Anion Gap 14.5 (5-19); Blood Urea Nitrogen 16 mg/dL (8-23); Calcium 8.1 mg/dL (8.5-10.5); Carbon Dioxide 23 mmol/L (22-29); Chloride 101 mmol/L (98-107); Creatinine Clr Calc Pharmacy 77.7189; Glucose 121 mg/dL (65-115); Magnesium 2.1 mg/dL (1.7-2.3); Phosphorus 2.7 mg/dL (2.5-4.5); Potassium 4.5 mmol/L (3.5-5.1); Sodium 134 mmol/L (136-145)
[2024-12-10] MEDS: methylPREDNISolone sod succ 40 mg/mL INJ IVP (05:00)
[2024-12-10] MEDS: sennosides-docusate Tablet 1 TAB PO (07:42)
[2024-12-10] MEDS: oseltamivir phosphate 75 mg Capsule PO ×2 (07:42→15:40)
[2024-12-10] MEDS: benzonatate 100 mg Capsule 200 MG PO (07:42)
[2024-12-10] MEDS: nicotine 21 mg Patch 1 PATCH TRANSDERMA (07:43)
--- NOTE | 2024-12-10 14:19 | PM.DCS ---
Discharge Providers Date of Admission: 12/08/24 20:29 Date of Discharge: December 10, 2024 Attending Provider at Admission: Deisi Landeros MD Attending Provider at Discharge: Farooq Carbone MD Primary Care Provider: Trisha Song MD Diagnoses at Discharge Discharge Diagnosis (1) Influenza A: Status: Acute (2) Hypoxia: Status: Acute (3) Sepsis: Status: Acute (4) SAMY (obstructive sleep apnea): Status: Acute Reason for Visit Reason for Visit: SOB Hospital Course Hospital Course Blayne Martines is a 73-year-old male with a past medical history significant for tobacco use disorder, coronary artery disease, and aortic stenosis who presented with shortness of breath, found to have acute hypoxic respiratory insufficiency with COPD exacerbation complicated by sepsis secondary to acute influenza A infection. He was treated with IV steroids, Tamiflu, breathing treatments and supportive care. Symptomatic Dallergy showed improvement. He completed 6-minute walk test which showed resolution of hypoxia. He was transition to oral treatment. Patient being discharged home in stable condition. He will follow-up with his primary provider within 1 week. Physical Exam Narrative: General: Patient is awake. Appears fatigue. Very pleasant. Head: Normocephalic. Atraumatic. EOM intact. Neck: No JVD. Cardiovascular: RRR. No gallops. No murmurs. Lungs: Cough present. End expiratory wheezing. No crackles, rales or rhonchi. Skin: No jaundice. No rashes. Abdomen: Normal bowel sounds, abdomen soft and nontender. Extremities: No cyanosis or clubbing. Musculoskeletal: No swollen or erythematous joints. Neurological: Moves all 4 extremities. No myoclonus. Discharge Data Studies Completed and Pending Completed Studies During Hospitalization Category Date Time Status XR chest 1V portable [id number] Stat Exams 12/08/24 17:18 Completed Pending at discharge Category Date Time Status Blood Culture Stat Lab 12/08/24 18:26 Results Radiology Impressions Chest X-Ray 12/08/24 17:18 IMPRESSION: No acute findings. Laboratory Results WBC 4.20 10^3/uL (3.29-11.43) 12/09/24 02:22 RBC 3.60 10^6/uL (3.85-5.65) L 12/09/24 02:22 Hgb 11.90 g/dL (11.27-16.99) 12/09/24 02:22 Hct 35.8 % (37-53) L 12/09/24 02:22 MCV 99.4 fl (82-101) 12/09/24 02:22 MCH 33.1 pg (27-33) H 12/09/24 02:22 MCHC 33.2 g/dL (30-55) 12/09/24 02:22 RDW 13.4 % (12.1-15.1) 12/09/24 02:22 Plt Count 82 10^3/cmm (157-399) L 12/09/24 02:22 MPV 9.6 fL (7.4-10.4) 12/09/24 02:22 Neut % (Auto) 87.6 % 12/09/24 02:22 Lymph % (Auto) 5.2 % 12/09/24 02:22 [place] % (Auto) 3.3 % 12/09/24 02:22 Eos % (Auto) 2.9 % 12/09/24 02:22 Baso % (Auto) 0.5 % 12/09/24 02:22 Neut # (Auto) 3.68 10^3/uL (1.8-7.7) 12/09/24 02:22 Lymph # (Auto) 0.2 10^3/uL (0.8-4.8) L 12/09/24 02:22 [place] # (Auto) 0.1 10^3/uL (0.2-0.9) L 12/09/24 02:22 Eos # (Auto) 0.1 10^3/uL (0.0-0.8) 12/09/24 02:22 Baso # (Auto) 0.0 10^3/uL (0.0-0.1) 12/09/24 02:22 Nucleated RBC % (auto) 0 % 12/09/24 02:22 Nucleated RBCs # 0.0 /100WBC 12/09/24 02:22 D-Dimer 2.46 ug/mLFEU (0-0.59) H 12/08/24 23:44 Specimen Type Arterial 12/08/24 17:52 Sample Site Radial, right 12/08/24 17:52 ABG pH 7.45 (7.35-7.45) 12/08/24 17:52 ABG pCO2 33.6 mmHg (35-45) L 12/08/24 17:52 ABG pO2 64.6 mmHg (80.0-100.0) L 12/08/24 17:52 ABG HCO3 23.1 mmol/L (22-26) 12/08/24 17:52 ABG O2 Saturation 95.0 12/08/24 17:52 ABG Base Excess -0.3 mmol/L (-2.0-2.0) 12/08/24 17:52 Sean Test Pos 12/08/24 17:52 A-a O2 Gradient 5.5 mmHg (5-10) 12/08/24 17:52 Hematocrit 45.0 % (42-52) 12/08/24 17:52 Hgb O2 Saturation 91.9 % (95-100) L 12/08/24 17:52 Carboxyhemoglobin 2.3 %THgb (0.4-20.1) 12/08/24 17:52 Methemoglobin 0.9 % (0.4-1.5) 12/08/24 17:52 Total Hemoglobin 14.7 g/dL (14-18) 12/08/24 17:52 Sodium 131.0 mmol/L (131-143) 12/08/24 17:52 Potassium 3.9 mmol/L (3.5-5.0) 12/08/24 17:52 Glucose 110.0 mg/dL (70-115) 12/08/24 17:52 Ionized Calcium 1.2 mmol/L (1.1-1.4) 12/08/24 17:52 O2 Delivery Device Nc 12/08/24 17:52 O2 Liters/Min 2.0 % 12/08/24 17:52 Director Of Field Sales ID [employer] 12/08/24 17:52 Sodium 134 mmol/L (136-145) L 12/10/24 02:17 Potassium 4.5 mmol/L (3.5-5.1) 12/10/24 02:17 Chloride 101 mmol/L (98-107) 12/10/24 02:17 Carbon Dioxide 23 mmol/L (22-29) 12/10/24 02:17 Anion Gap 14.5 (5-19) 12/10/24 02:17 BUN 16 mg/dL (8-23) 12/10/24 02:17 Creatinine 1.0 mg/dL (0.7-1.2) 12/10/24 02:17 GFR Calculation Not Reportable 12/10/24 02:17 Glucose 121 mg/dL (65-115) H 12/10/24 02:17 Calculated Osmolality 270 mOsm/kg (285-295) L 12/09/24 02:22 Lactic Acid 2.5 mmol/L (0.5-2.2) H 12/09/24 02:22 Lactic Acid (Sepsis) 1.6 mmol/L (0.5-2.2) 12/09/24 05:53 Calcium 8.1 mg/dL (8.5-10.5) L 12/10/24 02:17 Phosphorus 2.7 mg/dL (2.5-4.5) 12/10/24 02:17 Magnesium 2.1 mg/dL (1.7-2.3) 12/10/24 02:17 Total Bilirubin 1.9 mg/dL (0.15-1.2) H 12/08/24 17:36 AST 56 U/L (0-40) H 12/08/24 17:36 ALT 31 U/L (0-41) 12/08/24 17:36 Alkaline Phosphatase 164 U/L (40-130) H 12/08/24 17:36 C-Reactive Protein 26.9 mg/L (0.0-4.9) H 12/09/24 02:22 NT-Pro-B Natriuret Pep 266 pg/mL (0-125) H 12/08/24 17:36 Total Protein 6.7 g/dL (6.6-8.7) 12/08/24 17:36 Albumin 2.9 g/dL (3.5-5.2) L 12/10/24 02:17 Globulin 3.3 g/dL (1.3-4.6) 12/08/24 17:36 Vitamin B12 350 pg/mL (232-1245) 12/08/24 23:44 Procalcitonin 0.28 ng/mL (0-0.5) 12/08/24 23:44 TSH 0.43 uIU/mL (0.27-4.20) 12/08/24 23:44 Urine Color [place] (Yellow) A 12/08/24 18:28 Urine Appearance Clear (CLEAR) 12/08/24 18:28 Urine pH 5.5 (5-7) 12/08/24 18:28 Ur Specific [place] 1.030 (1.005-1.030) 12/08/24 18:28 Urine Protein 1+ (Negative) A 12/08/24 18:28 Urine Glucose (UA) Negative (Normal) 12/08/24 18:28 Urine Ketones Negative (Negative) 12/08/24 18: Urine Blood Negative (Negative) 12/08/24 18:28 Urine Nitrate Negative (Negative) 12/08/24 18:28 Urine Bilirubin 1+ (Negative) H 12/08/24 18: Urine Urobilinogen 2.0 mg/dL (Negative) H 12/08/24 18:28 Ur Leukocyte Esterase Negative (Negative) 12/08/24 18:28 Urine RBC 0-2 /hpf (0-2) 12/08/24 18:28 Urine WBC 0-5 /hpf (0-5) 12/08/24 18:28 Ur Squamous Epith Cells 0-5 /hpf (0-5) 12/08/24 18:28 Amorphous Sediment Not Reportable 12/08/24 18:28 Urine Bacteria None seen /hpf (NONE) 12/08/24 18:28 Hyaline Casts 1.21 /lpf 12/08/24 18:28 Ethyl Alcohol < 10 mg/dL (0-10) 12/08/24 23:44 Coronavirus (PCR) Negative (Negative) 12/08/24 17:55 Influenza A (PCR) Positive (Negative) 12/08/24 17:55 Influenza Type B (PCR) Negative (Negative) 12/08/24 17:55 RSV (PCR) Negative (Negative) 12/08/24 17:55 Vitals Last Vital Signs Temp 97.5 F L 12/10/24 11:43 Pulse 103 H 12/10/24 11:43 Resp 18 12/10/24 11:43 BP 110/68 12/10/24 11:43 Pulse Ox 95 12/10/24 11:43 O2 Del Method Room Air 12/10/24 11:43 O2 Flow Rate 2 12/09/24 21:55 FiO2 2 12/10/24 02:52 Discharge Plan Discharge Patient Disposition: Home Condition: Stable Prescriptions: New ipratropium-albuterol 0.5 mg-3 mg(2.5 mg base)/3 mL Solution For Nebulization 3 ml inhalation Q4H PRN (Reason: shortness of breath) 30 Days Qty: 540 0RF oseltamivir 75 mg Capsule 75 mg PO BID 3 Days Qty: 6 0RF prednisone 50 mg tablet 50 mg PO DAILY 5 Days Qty: 5 0RF Continued nitroglycerin 0.4 mg tablet, sublingual 0.4 mg sublingual Q5M PRN (Reason: chest pain) Qty: 25 2RF Rx Instructions: do not exceed 3 doses per episode pseudoephedrine HCl [Sudafed] 30 mg Tablet 30 mg PO Q6H PRN (Reason: Congestion) Rx Instructions: Pt takes every morning - unsure of dose. Discharge Orders: Discharge Order (Routine); Ordered 12/10/24 Ordered By: Farooq Carbone Other Ambulatory Orders: DME: Nebulizer with Neb Kit (Order) Location: None Selected Ordered By: Farooq Carbone Referrals: Trisha Song MD [Primary Care Provider] - 4-7 days Discharge Diet: Advance as tolerated and Usual diet Discharge Activity: Resume usual activity and Increase activity as tolerated Activity Restrictions/Additional Instructions: 1. Take medications as prescribed. 2. Follow-up with PCP within 1 week. 3. Recommend consideration for pulmonary function testing after complete recovery. Discharge Attestations Time Spent in Discharge Care*: greater than 30 min Quality Metrics Clinical Quality Measures [ No reported AMI, CVA or VTE this stay] Coding Level of Care Code Acute Code for [facility] Diagnoses Influenza A J10.1 Hypoxia R09.02 Sepsis A41.9 SAMY (obstructive sleep apnea) G47.33
--- NOTE | 2024-12-11 08:48 | PC.SOCIAL ---
CM contacted patient and he stated he did recieve his nebulizer, but not his medications. CM explained to him that his medications were sent to [facility] and he states he would go get them today.
== END 2024-12-10 16:30 | disposition home or self-care (01) | DRG 871 ==
LOC: ER 20:45 → MEDSURG 21:19
PROVIDERS: Emergency Medicine; Admitting Provider Internal Medicine; Emergency Provider Emergency Medicine; PCP Family Medicine; Visit Provider Internal Medicine
DX: A41.9 Sepsis, unspecified organism (principal); J96.01 Acute respiratory failure with hypoxia; J44.1 Chronic obstructive pulmonary disease with (acute) exacerbation; E87.1 Hypo-osmolality and hyponatremia; J10.1 Influenza due to other identified influenza virus with other respiratory manifestations; G47.33 Obstructive sleep apnea (adult) (pediatric); F17.210 Nicotine dependence, cigarettes, uncomplicated; I25.10 Atherosclerotic heart disease of native coronary artery without angina pectoris; Z95.5 Presence of coronary angioplasty implant and graft; I35.0 Nonrheumatic aortic (valve) stenosis; E78.5 Hyperlipidemia, unspecified; D69.6 Thrombocytopenia, unspecified; I25.2 Old myocardial infarction; E86.0 Dehydration
CPT/HCPCS: 36415; 36600; 71045; 80048; 80051; 80053; 80069; 80307; 81001; 82330; 82607; 82805; 83605; 83735; 83880; 84100; 84145; 84443; 85025; 85378; 86140; 87040; 87637; 93005; 94640; 94760; 96365; 96372; 96375; 97161; 99285; J0131; J1650; J2919; J3490; J7030; J7613

== ENCOUNTER 2025-05-04 07:33 | Outpatient (CLI) | payer OTHER, SELFPAY ==
--- NOTE | 2025-05-04 08:00 | USCV_ITS ---
Blayne Martines Age: 74 Gender: M : 1950 Exam Date: 05/04/2025 07:46 Ordering Phys: Enrique Gentile M.D ([email or web address]) Technologist: Exam [place] [facility] [place]: sob cp BP: 118 / 58 HR: 74 Rhythm: Sinus Technical Quality: Adequate MEASUREMENTS (Male / Female) Normal Values 2D ECHO LV Ejection Fraction MOD 4C 60.0 % LV Ejection Fraction MOD 2C 58.3 % LV Ejection Fraction 2C AL 59.4 % DOPPLER AV Peak Velocity 294.0 cm/s LVOT Peak Velocity 87.0 cm/s MV Peak Velocity 111.0 cm/s MV Area PHT 5.4 cm squared Mitral E to A Ratio 1.1 TV Peak Velocity 233.5 cm/s TR Peak Velocity 239.0 cm/s TR Peak Gradient 22.8 mmHg TV Peak E Velocity 99.0 cm/s FINDINGS Left Ventricle Technically limited quality echocardiogram because of poor ultrasonic windows. LV systolic function is normal with EF of 60-65%. No regional wall motion abnormalities are seen. Right Ventricle Normal in size and function Right Atrium Normal in size Left Atrium Normal in size Mitral Valve Structurally normal mitral valve. Trace mitral regurgitation Aortic Valve Not well-visualized. Mild aortic stenosis with mean gradient of 15 mmHg. Tricuspid Valve Insufficient TR jet to evaluate RVSP. Pulmonic Valve Not well-visualized. Pericardium Grossly normal. Aorta Not visualized IVC Not visualized CONCLUSIONS Technically limited quality echocardiogram because of poor ultrasonic windows. LV systolic function is normal with EF of 60-65%. Trace mitral regurgitation Mild aortic stenosis however aortic valve is not well- visualized. Enrique Gentile MD (Electronically Signed) Final Date: 18 May 2025 12:51 S
== END 2025-05-04 07:34 | disposition home or self-care (01) ==
LOC: RAD 07:35
PROVIDERS: PCP Family Medicine; Visit Provider Internal Medicine
DX: I35.0 Nonrheumatic aortic (valve) stenosis (principal)
CPT/HCPCS: 93306

== ENCOUNTER 2025-05-25 06:17 | Inpatient (IN) | payer OTHER, MEDICARE, SELFPAY ==
[2025-05-25] VITALS (84 sets, daily range): BP systolic 79–149; BP diastolic 46–101; PULSE 69–110; RESP 12–28; TEMP 36.4–36.6; O2SAT 87–98; BMI 28.2; BMI 27.3
--- NOTE | 2025-05-25 06:35 | ECG_ITS ---
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 Measurements Intervals [place] Rate: 79 P: 101 [place]: 177 QRS: 20 QRSD: 90 T: 47 QT: 371 QTc: 427 Interpretive Statements SINUS RHYTHM LOW QRS VOLTAGE IN PRECORDIAL LEADS [QRS DEFLECTION < 1.0 mV IN CHEST LEADS] NONSPECIFIC ST & T-WAVE ABNORMALITY Compared to ECG 12/08/2024 18:04:05 Low QRS voltage now present T-wave abnormality now present Sinus tachycardia no longer present ST (T wave) deviation no longer present Electronically Signed On 05-26-2025 14:11:11 CDT by Sandi Read M.D. [email or web address]
--- NOTE | 2025-05-25 06:35 | XR_ITS ---
WS: [id number] XR chest 1V portable [id number] REASON FOR EXAM: dyspnea/cough FINDINGS: The lungs are significantly hyperexpanded and there are are areas of lucency compatible with bullous lung disease and/or central lobar emphysema. Compared to the previous examination of 12/08/2024, there is obscuration of the left costophrenic angle and increased linear and reticular lung opacities superimposed on previously demonstrated chronic interstitial change. The heart and the mediastinum are within normal limits. Coronary artery stents. Moderate degenerative spondylosis of the thoracic spine. XR/XR chest 1V portable [id number] IMPRESSION: Interval development of increased opacities in the left lower lung of unknown c hronicity. This could represent an acute or subacute pneumonitis.
--- NOTE | 2025-05-25 06:43 | ED_ITS ---
HPI - Altered Mental Status 2 General: Chief Complaint: Altered Mental Status Stated Complaint: AMS Time Seen by Provider: 05/25/25 06:23 History of Present Illness: 74-year-old male presents emergency room with reports of altered mental status per his . She had come back into town from a trip he seemed disoriented. On arrival here patient is obviously quite jaundiced. His sclera has extreme icterus. Patient is awake and alert is oriented to time place and person. He is not happy about being in the emergency room he feels he was brought here against as well. He denies any history of alcohol use states he has not drank in 20 years. Related Data Previous Rx's ?Medication ?Instructions ?Recorded nitroglycerin 0.4 mg sublingual 0.4 mg sublingual Q5M PRN chest 02/24/24 tablet pain #25 tabs Allergies Allergy/AdvReac Type Severity Reaction Status Date / Time No Known Allergies Allergy Verified 05/02/25 13:01 Review of Systems 2 Const: Denies: fever(s) or chills Card: Denies: chest pain Resp: Denies: dyspnea GI: Reports: abdominal pain and nausea : Denies: dysuria, urinary frequency or urinary urgency Musc: Denies: neck pain or back pain Skin/Breast: Denies: rash PFSH ED 2 PFSH: Medical History Tobacco use (HFpEF) heart failure with preserved eje ction fraction Thrombocytopenia Tobacco abuse SAMY (obstructive sleep apnea) ASHD (arteriosclerotic heart disease) Dyslipidemia Myocardial infarction Surgical History S/P knee surgery S/P PTCA (percutaneous transluminal coronary angioplasty) Family History Father Parkinson disease Social History Smoking and tobacco/nicotine status: current every day tobacco/nicotine user cigarettes Packs smoked per day: 1.5 Alcohol intake: current Alcohol intake frequency: holidays/special occasions only Household members: spouse Marital status: service: No Current occupational status: employed Current gender identity: Male Physical Exam 2 Const: GENERAL APPEARANCE: cooperative ORIENTATION/CONSCIOUSNESS: Yes awake HENMT: COMMON NORMALS: normocephalic, atraumatic and hearing grossly normal bilaterally HEAD & SCALP: normocephalic and atraumatic Resp: COMMON NORMALS: normal respiratory effort, No retractions, No use of accessory muscles and clear to auscultation bilaterally AUSCULTATION: clear to auscultation bilaterally Cardio: COMMON NORMALS: regular rate, regular rhythm and No murmurs present (Cardio) RATE: regular rate RHYTHM: regular rhythm GI: COMMON NORMALS: No hepatosplenomegaly present AUSCULTATION: Yes normoactive bowel sounds PALPATION: Yes Tenderness to palpation present (GI), No Guarding due to palpation present (GI) and Yes No hepatosplenomegaly present Extremity: COMMON NORMALS: normal to inspection, capillary refill normal, no clubbing, cyanosis or edema, no calf tenderness and no pedal edema Skin: COMMON NORMALS: no rashes or lesions noted GENERAL SKIN EXAM: no rashes or lesions noted Course 2 Vital Signs: Vital signs: Vital Signs Temperature 97.5 F L 05/25/25 06:28 Pulse Rate 75 05/25/25 11:39 Respiratory Rate 14 05/25/25 10:35 Blood Pressure 89/60 05/25/25 11:39 Pulse Oximetry 95 05/25/25 11:39 Oxygen Delivery Me thod Room Air 05/25/25 06:28 MDM - Altered Mental Status Medical Decision Making Patient moderately encephalopathic. White count normal lactic acid elevated. Ammonia level was also normal. Cultures done CT did not show anything acute abdomen shows cirrhotic changes. Started on antibiotics. Cover for possible pneumonia based on chest x-ray as well as possibility of SBP. Patient was hypotensive initially he is improved with fluids and we started him on Levophed. He had noted on CT no sign of obstruction has been chronic. Discussed with hospitalist orders written Medical Records I reviewed the patient's medical records. Lab Data I reviewed the patient's lab results. 05/25/25 06:29 05/25/25 06:29 Radiology Impressions Chest X-Ray 05/25/25 06:35 IMPRESSION: Interval development of increased opacities in the left lower lung of unknown chronicity. This could represent an acute or subacute pneumonitis. Abdomen/Pelvis CT 05/25/25 08:24 IMPRESSION: 1. Large LEFT inguinal hernia containing loops of colon with associated fluid and edema. This was present in 2020. Recommend surgery consultation. No evidence of high-grade obstruction. Inferior aspect of the inguinal hernia not entirely included on the study 2. Coarse heterogeneous cirrhotic liver with evidence portal hypertension. Mild splenomegaly. 3. Small RIGHT greater than LEFT pleural effusions with compressive atelectasis in the lung bases. 4. Mild ascites. 5. Diffuse body wall anasarca. Head CT 05/25/25 10:50 IMPRESSION: 1. No evidence of intracranial hemorrhage or mass effect. 2. No acute intracranial findings. Laboratory Results WBC 9.13 10^3/uL (3.29-11.43) 05/25/25 06:29 RBC 2.96 10^6/uL (3.85-5.65) L 05/25/25 06:29 Hgb 10.00 g/dL (11.27-16.99) L 05/25/25 06:29 Hct 30.1 % (37-53) L 05/25/25 06:29 MCV 101.7 fl (82-101) H 05/25/25 06:29 MCH 33.8 pg (27-33) H 05/25/25 06:29 MCHC 33.2 g/dL (30-55) 05/25/25 06:29 RDW 16.7 % (12.1-15.1) H 05/25/25 06:29 Plt Count 85 10^3/cmm (157-399) L 05/25/25 06:29 MPV 9.3 fL (7.4-10.4) 05/25/25 06:29 Neut % (Auto) 76.3 % 05/25/25 06:29 Lymph % (Auto) 19.3 % 05/25/25 06:29 [place] % (Auto) 2.6 % 05/25/25 06:29 Eos % (Auto) 0.9 % 05/25/25 06:29 Baso % (Auto) 0.4 % 05/25/25 06:29 Neut # (Auto) 6.96 10^3/uL (1.8-7.7) 05/25/25 06:29 Lymph # (Auto) 1.8 10^3/uL (0.8-4.8) 05/25/25 06:29 [place] # (Auto) 0.2 10^3/uL (0.2-0.9) 05/25/25 06:29 Eos # (Auto) 0.1 10^3/uL (0.0-0.8) 05/25/25 06:29 Baso # (Auto) 0.0 10^3/uL (0.0-0.1) 05/25/25 06:29 Nucleated RBC % (auto) 0 % 05/25/25 06: Nucleated RBCs # 0.0 /100WBC 05/25/25 06:29 Sodium 134 mmol/L (136-145) L 05/25/25 06:29 Potassium 3.3 mmol/L (3.5-5.1) L 05/25/25 06:29 Chloride 94 mmol/L (98-107) L 05/25/25 06: Carbon Dioxide 25 mmol/L (22-29) 05/25/25 06:29 Anion Gap 18.3 (5-19) 05/25/25 06:29 BUN 30 mg/dL (8-23) H 05/25/25 06:29 Creatinine 1.7 mg/dL (0.7-1.2) H 05/25/25 06:29 GFR Calculation Not Reportable 05/25/25 06: Glucose 87 mg/dL (65-115) 05/25/25 06: Calculated Osmolality 284 mOsm/kg (285-295) L 05/25/25 06:29 Lactic Acid 4.2 mmol/L (0.5-2.2) H* 05/25/25 06:29 Lactic Acid (Sepsis) 3.6 mmol/L (0.5-2.2) H 05/25/25 10:12 Calcium 9.0 mg/dL (8.5-10.5) 05/25/25 06:29 Iron 77 ug/dL (59-158) 05/25/25 06: TIBC 94.18575 mcg/dl 05/25/25 06: % Saturation 81.0 % (20-50) H 05/25/25 06:29 Unsat Iron Binding > 17 ug/dL (112-347) L 05/25/25 06:29 Ferritin 1728 ng/mL (30-400) H 05/25/25 06:29 Total Bilirubin 5.7 mg/dL (0.15-1.2) H 05/25/25 06:29 AST 143 U/L (0-40) H 05/25/25 06:29 ALT 135 U/L (0-41) H 05/25/25 06:29 Alkaline Phosphatase 225 U/L (40-130) H 05/25/25 06:29 Ammonia 32 umol/L (16-60) 05/25/25 06:29 Creatine Kinase 51 U/L (39-308) 05/25/25 06:29 Total Protein 6.5 g/dL (6.6-8.7) L 05/25/25 06:29 Albumin 2.6 g/dL (3.5-5.2) L 05/25/25 06: Globulin 3.9 g/dL (1.3-4.6) 05/25/25 06:29 Triglycerides 129 mg/dL (0-150) 05/25/25 06: Cholesterol 159 mg/dL (0-200) 05/25/25 06:29 LDL Cholesterol, Calc 122 mg/dL (50-129) 05/25/25 06:29 Total VLDL Cholesterol 26 mg/dL (0-30) 05/25/25 06:29 HDL Cholesterol 11 mg/dL (60-100) L 05/25/25 06: Cholesterol/HDL Ratio 14.45 mg/dL (1.0-5.00) H 05/25/25 06: Lipase 34 U/L (13-60) 05/25/25 06: TSH 2.32 uIU/mL (0.27-4.20) 05/25/25 06:29 Urine Color [place] (Yellow) A 05/25/25 07:37 Urine Appearance Clear (CLEAR) 05/25/25 07:37 Urine pH 5.5 (5-7) 05/25/25 07:37 Ur Specific [place] 1.021 (1.005-1.030) 05/25/25 07:37 Urine Protein Trace (Negative) A 05/25/25 07:37 Urine Glucose (UA) Negative (Normal) 05/25/25 07:37 Urine Ketones Negative (Negative) 05/25/25 07:37 Urine Blood Negative (Negative) 05/25/25 07:37 Urine Nitrate Positive (Negative) A 05/25/25 07:37 Urine Bilirubin 2+ (Negative) H 05/25/25 07:37 Urine Urobilinogen 2.0 mg/dL (Negative) H 05/25/25 07:37 Ur Leukocyte Esterase Trace (Negative) A 05/25/25 07:37 Urine RBC 0-2 /hpf (0-2) 05/25/25 07:37 Urine WBC 0-5 /hpf (0-5) 05/25/25 07:37 Ur Squamous Epith Cells 0-5 /hpf (0-5) 05/25/25 07:37 Amorphous Sediment Not Reportable 05/25/25 07:37 Urine Bacteria None seen /hpf (NONE) 05/25/25 07:37 Hyaline Casts 11.57 /lpf 05/25/25 07:37 Fine Granular Casts 0-4 /lpf H 05/25/25 07:37 Hepatitis A IgM Ab Non-reactive (Nonreactive) 05/25/25 06:29 Hep Bs Antigen Non-reactive (Nonreactive) 05/25/25 06:29 Hep Bs Antibody < 3.5 (11.5-1000) L 05/25/25 06:29 Hep B Core Total Ab Non-reactive (Nonreactive) 05/25/25 06:29 Hepatitis C Antibody Non-reactive (Nonreactive) 05/25/25 06:29 All radiology interpretation(s) finalized by discharge Discharge Plan Discharge Patient Disposition: Admitted As Inpatient Admit Provider: Amber Cloud Clinical Impression: Indirect left inguinal hernia, (HFpEF) heart failure with preserved ejection fraction, Liver cirrhosis, Portal hypertension, Hypotension, History of coronary artery disease, Anemia, Ascites, Hepatorenal syndrome, Acute kidney injury, Sepsis, Pneumonia Condition: Stable Coding Level of Care Code ED [employer]er for Douglas Arciniega
[2025-05-25 06:53] LABS: Hematocrit 30.1 % (37-53); Hemoglobin 10.00 g/dL (11.27-16.99); Mean Corpuscular HGB Conc 33.2 g/dL (30-55); Mean Corpuscular Hemoglobin 33.8 pg (27-33); Mean Corpuscular Volume 101.7 fl (82-101); Nucleated Red Blood Cells % 0 %; Platelet Count 85 10^3/cmm (157-399); Red Blood Count 2.96 10^6/uL (3.85-5.65); White Blood Count 9.13 10^3/uL (3.29-11.43)
--- NOTE | 2025-05-25 06:57 | PC.NURSE ---
informed pt and pt's for need of urine sample. provided pt with urinal
[2025-05-25 07:09] LABS: Alanine Aminotransferase 135 U/L (0-41); Albumin Level 2.6 g/dL (3.5-5.2); Alkaline Phosphatase 225 U/L (40-130); Anion Gap 18.3 (5-19); Aspartate Amino Transferase 143 U/L (0-40); Blood Urea Nitrogen 30 mg/dL (8-23); Calcium 9.0 mg/dL (8.5-10.5); Carbon Dioxide 25 mmol/L (22-29); Chloride 94 mmol/L (98-107); Creatinine Clr Calc Pharmacy 45.4552; Globulin 3.9 g/dL (1.3-4.6); Glucose 87 mg/dL (65-115); Lipase 34 U/L (13-60); Osmolality Calculated 284 mOsm/kg (285-295); Potassium 3.3 mmol/L (3.5-5.1); Sodium 134 mmol/L (136-145); Total Protein 6.5 g/dL (6.6-8.7)
[2025-05-25 07:13] LABS: Ammonia 32 umol/L (16-60)
[2025-05-25 07:19] LABS: Lactic Sepsis W/Reflex 4.2 mmol/L (0.5-2.2)
[2025-05-25] MEDS: cefTRIAXone 1,000 mg SDV 1000 MG IVP ×2 (07:47→13:29)
[2025-05-25 07:54] LABS: Glucose Urine UA Negative (Normal); Nitrate Urine Positive (Negative); Specific Gravity, Urine 1.021 (1.005-1.030)
[2025-05-25 07:58] LABS: Add Urine Microscopic? YES
[2025-05-25 08:21] LABS: UA Slide Review UA Slide Review Perf
--- NOTE | 2025-05-25 08:24 | CT_ITS ---
WS: [id number] CT ABDOMEN PELVIS TECHNIQUE: Noncontrast CT of the abdomen and pelvis with coronal and sagittal reformatted images. CLINICAL INFORMATION: Lactic acidosis elevated liver functions COMPARISON: None. DLP: 823.[address] scans at [facility] use at least one of these dose optimization techniques: automated exposure control; mA and/or kV adjustment per patient size (includes targeted exams where dose is matched to clinical indication); or iterative reconstruction. FINDINGS: Large LEFT inguinal hernia containing loops of colon. No evidence of high-grade obstruction. Associated fluid and edema. Hernia was present in 2020 with a similar appearance. Distal most aspect of the hernia is not visualized on this study today. Small RIGHT greater than LEFT pleural effusions with compressive atelectasis in the lung bases. Coarse heterogeneous cirrhotic liver. Mild splenomegaly with portal hypertension. Small esophageal hiatal hernia. Increased attenuation in the gallbladder may be due to vicarious excretion of contrast or increased attenuation sludge. Single gallbladder calculus. Gallbladder is decompressed. No hydronephrosis. Aortic calcification. Mild perihepatic and perisplenic ascites. Mild pelvic ascites. Mild prostate enlargement. Diffuse body wall anasarca. Sigmoid colon extends into the LEFT inguinal hernia. LEFT descending colon extends into the LEFT inguinal hernia. Fatty atrophy of the pancreas. Chronic compression L4.. CT/CT abdomen pelvis con [id number] IMPRESSION: 1. Large LEFT inguinal hernia containing loops of colon with associated fluid and edema. This was present in 2020. Recommend surgery consultation. No evidenc e of high-grade obstruction. Inferior aspect of the inguinal hernia not entirel y included on the study 2. Coarse heterogeneous cirrhotic liver with evidence portal hypertension. Mil d splenomegaly. 3. Small RIGHT greater than LEFT pleural effusions with compressive atelectasi s in the lung bases. 4. Mild ascites. 5. Diffuse body wall anasarca.
--- NOTE | 2025-05-25 08:25 | PC.NURSE ---
pt b/p 81/52 post 2L NS bolus, Dr. Ortiz notified
[2025-05-25 08:35] LABS: Reflex Lactate Order REFLEX LACTIC ORDERD
[2025-05-25] MEDS: norepinephrine 4 MG/250 ML BAG 7.5 MG IV (09:37)
[2025-05-25 10:39] LABS: Lactic Acid level (Lactate) 3.6 mmol/L (0.5-2.2)
--- NOTE | 2025-05-25 10:50 | CT_ITS ---
WS: [id number] CT HEAD TECHNIQUE: Noncontrast CT of the head obtained from the skullbase to the vertex. CLINICAL INFORMATION: AMS/confusion COMPARISON: None. DLP: 1134.[address] scans at [facility] use at least one of these dose optimization techniques: automated exposure control; mA and/or kV adjustment per patient size (includes targeted exams where dose is matched to clinical indication); or iterative reconstruction. FINDINGS: No evidence of intracranial hemorrhage or mass effect. Ventricular system and basal cisterns are patent. Mild small vessel changes with moderate parenchymal volume loss. No extra-axial fluid collections. No evidence of mass or mass effect. Vascular calcification. Incidental cavum septum pellucidum and vergae. Paranasal sinuses and mastoid air cells are well aerated. .Normal visualized soft tissues. CT/CT head wo con* [id number] IMPRESSION: 1. No evidence of intracranial hemorrhage or mass effect. 2. No acute intracranial findings.
--- NOTE | 2025-05-25 11:30 | PC.NURSE ---
Pt arrives from ED with Levophed infusing at 4 mcg/min. Pt alert and oriented. Pt not happy about being here. Jaundice and anasarca noted. Dr Cloud , at bedside, discussed goals of care with patient, pt verbalized his wish to be DNR/AND, witnessed by this nurse.
--- NOTE | 2025-05-25 12:28 | P.HP_ITS ---
Providers/Chief Complaint 2 Admitting Physician: Amber Cloud MD Primary Care Provider: Emeka Lovett MD Chief Complaint: AMS History of Present Illness Blayne Martines Jr is a 74 year old male With past medical history of coronary artery disease status post 5 stents, [place], heart failure with preserved ejection fraction, inguinal hernia, tobacco use disorder, generalized weakness, thrombocytopenia, history of alcohol abuse in the past, presented to the hospital today by for complaint of altered mental status. Upon arrival to ER once evaluated patient was alert oriented x 3. He saw his primary care doctor at the end of April at which point he had complaint of leg swelling for last 2 months. He was given furosemide but that it did not help. In the ER patient was noted to have scleral icterus and CT abdomen pelvis was performed which showed a large left inguinal hernia containing loops of colon with associated fluid and edema. This was present in 2020. No evidence of high- grade obstruction. Coarse heterogenous cirrhotic liver with evidence of portal hypertension. Mild splenomegaly. Small right greater than left pleural effusion with compressive atelectasis in the lung bases, mild ascites, diffuse body wall anasarca. Urinalysis shows trace protein, positive nitrates, 2+ bilirubin, 2 urobilinogen, trace leukocyte esterase. Lactic acid arrival 4.2, total bilirubin 5.7, AST 543, ALT 135, alkaline phosphatase 225. Creatinine 1.7, potassium 3.3, sodium 134. Platelet count 85, hemoglobin 10.0. Patient has been hypotensive since arrival therefore was started on Levophed and is now on 6 mics per hour. He was given 2.8 L normal saline bolus per sepsis protocol. When patient was seen in ICU room 4 he was alert oriented x 3. He states he was home alone. He fell and he was unable to get up. Has been feeling weak in the last few weeks. He states his had gone out of town to [place] and when she came back she found him on the floor. She then brought him to the hospital. Discussed goals of care. He states he would like to be DNR/DNI. I discussed with them if his knows his wishes he said I am pretty sure she knows. Discussion took place in front of patient's nurse. Patient is jaundiced has scleral icterus. I asked him if he knew there was evidence of liver cirrhosis he stated this was a new diagnosis for him at this point. He states he follows up with his primary care doctor and saw him last month for leg swelling. He is somewhat of a poor historian. Denies nausea vomiting diarrhea chest pain shortness of breath. He states my main complaint is mild leg swelling. Patient also has scrotal swelling. He states everyone has been looking at his scrotum today. No family present at bedside at this time. He states he stopped drinking years ago. Medications/Allergies Home Medications ?Medication ?Instructions ?Recorded ?Confirmed ?Last Taken ?Type nitroglycerin 0.4 mg sublingual 0.4 mg sublingual Q5M PRN chest 02/24/24 05/25/25 Unknown Rx tablet pain #25 tabs Allergies Allergy/AdvReac Type Severity Reaction Status Date / Time No Known Allergies Allergy Verified 05/02/25 13:01 PFSH Acute 2 PFSH: Medical History (Updated 05/25/25 @ 15:29 by Adama Ortiz DO) Tobacco use (HFpEF) heart failure with preserved eje ction fraction Thrombocytopenia Tobacco abuse SAMY (obstructive sleep apnea) ASHD (arteriosclerotic heart disease) Dyslipidemia Myocardial infarction Surgical History S/P knee surgery S/P PTCA (percutaneous transluminal coronary angioplasty) Family History Father Parkinson disease Social History Smoking and tobacco/nicotine status: current every day tobacco/nicotine user cigarettes Packs smoked per day: 1.5 Alcohol intake: current Alcohol intake frequency: holidays/special occasions only Household members: spouse Marital status: service: No Current occupational status: employed Current gender identity: Male Vitals/I&O/Wt Last Vital Signs Temp 97.5 F L 05/25/25 06:28 Pulse 75 05/25/25 11:39 Resp 14 05/25/25 10:35 BP 89/60 05/25/25 11:39 Pulse Ox 95 05/25/25 11:39 O2 Del Method Room Air 05/25/25 06:28 05/24/25 05/25/25 05/25/25 22:59 06:59 14:59 Intake Total 0 / 0 2851.285 / 2851.285 Balance 0 / 0 2851.285 / 2851.285 Weight last 48 hrs Weight 94.347 kg Physical Exam 2 Narrative: General: Alert oriented x3, laying in bed in ICU 4. Scleral icterus present. Appears jaundiced. No acute respiratory distress. HEENT: Normocephalic, atraumatic, EOMI, Respiratory clear to auscultation bilaterally no gross wheezes or rhonchi. Diminished sounds at bases. Cardio: Normal S1-S2, regular rate rhythm, scrotal swelling present 3+. (Partly due to inguinal hernia) GI: Abdomen soft, mildly distended, mild fluid wave appreciated. Mildly tender to palpation all 4 quadrants Behavior: Appropriate and cooperative Extremities: 3-4+ edema bilateral lower extremity up to thighs Data 05/25/25 06:29 05/25/25 06:29 Micro: Microbiology 05/25/25 06:53 Blood Culture - Preliminary Blood SPECIMEN COLLECTED 05/25/25 06:29 Blood Culture - Preliminary Blood SPECIMEN COLLECTED A&P Assessment and plan 1. (HFpEF) heart failure with preserved ejection fraction: 2. Status post fall: 3. Indirect left inguinal hernia: 4. Lower extremity edema: 5. Tobacco abuse: 6. Portal hypertension: 7. Splenomegaly: 8. Liver cirrhosis: 9. Hepatorenal syndrome: 10. Hypokalemia: 11. Anemia: 12. Hypotension: 13. Dyslipidemia: 14. Elevated liver enzymes: 15. Ascites: 16. Acute kidney injury: Plan: #Hypotension, STEPHAN most likely secondary to hepatorenal syndrome. #Decompsated Liver cirrhosis #Subtle icterus, jaundice #Possible SBP #Hyponatremia, hypokalemia #Lactic acidosis #Elevated liver enzymes #Heart failure preserved ejection fraction, decompensated #Anemia, thrombocytopenia #History of alcohol use in the past #Inguinal hernia - Consult nephrology. ? Continue to wean off Levophed as able ? Check hepatitis profile ? Check echocardiogram ? Thrombocytopenia most likely secondary to liver disease and history of alcohol use. Avoid DVT prophylaxis Lovenox versus heparin. ? Continue SCDs ? Hypokalemia. Replete with 40 oral x 1 ? Placed on cardiac diet ? Patient did get 2.8 L of normal saline in the ER. Lactic acid 4.3 on admission improved to 3.6 later on. ? I suspect he has hepatorenal syndrome with STEPHAN of creatinine 1.7. ? Possible SBP ? Order paracentesis with fluid analysis ? Will cover for 2 g of ceftriaxone daily. ? Goals of care discussion was done with the patient. He is alert oriented. Seems to have capacity. I am aware that initially was brought in for altered mental status however ER doctor nursing staff and I have seen him and believe he has capacity and does not appear to be confused at this time. Patient would like to be DNR/DNI. We did ask him if his is aware that these are his wishes and he said she should know. ? I will consider starting midodrine to try to wean off Levophed ? Order albumin every 8 hours IV ? Discussed with general surgery on-call. Due to patient's decompensated liver cirrhosis status STEPHAN pararenal syndrome he would not be a candidate for surgery at this time. General surgeon will evaluate CT abdomen for inguinal hernia. ? Started midodrine 10 3 times daily ? Patient will likely benefit from GI consultation. ? Check ferritin level. DNR/DNI DVT prophylaxis: SCDs PDMP PDMP Reviewed: Not Reviewed Attestations 2 Medical Necessity Statement*: Hepatorenal syndrome, decompensated liver cirrhosis. Diagnoses (HFpEF) heart failure with preserved ejection fraction I50.30 Status post fall Z91.81 Indirect left inguinal hernia K40.90 Lower extremity edema R60.0 Tobacco abuse Z72.0 Portal hypertension K76.6 Splenomegaly R16.1 Liver cirrhosis K74.60 Hepatorenal syndrome K76.7 Hypokalemia E87.6 Anemia D64.9 Hypotension I95.9 Dyslipidemia E78.5 Elevated liver enzymes R74.8 Ascites R18.8 Acute kidney injury N17.9
--- NOTE | 2025-05-25 12:35 | USCV_ITS ---
Bobbi Cisneros Age: 74 Gender: M : 1950 Exam Date: 05/25/2025 14:20 Ordering Phys: Amber Cloud MD Technologist: Exam Location: [facility] [place] Indication: chest pain BP: / HR: Rhythm: Sinus Technical Quality: Adequate MEASUREMENTS (Male / Female) Normal Values FINDINGS Left Ventricle Right Ventricle Right Atrium Left Atrium Mitral Valve Aortic Valve Tricuspid Valve Pulmonic Valve Pericardium Aorta IVC CONCLUSIONS Thickening in the difficult. No parasternal, apical or subcostal ultrasonic window. Cardia structures could not be visualized. Dr Sandi Read MD [facility] (Electronically Signed) Final Date: 25 May 2025 17:00 S
[2025-05-25] MEDS: D5-NS 0.45% + KCL 20 mEq 20 MEQ/1,000 ML BAG 100 MEQ IV (13:31)
[2025-05-25 13:43] LABS: Cholesterol 159 mg/dL (0-200); HDL Cholesterol 11 mg/dL (60-100); Iron 77 ug/dL (59-158); Thyroid Stimulating Hormone 2.32 uIU/mL (0.27-4.20); Triglycerides 129 mg/dL (0-150); VLDL Cholestrol Calculation 26 mg/dL (0-30)
--- NOTE | 2025-05-25 13:52 | P.CONIM_ITS ---
Providers/Reason For Consult 2 Consulting Physician/Specialty*: dr ulrich gen surg Reason for Consult*: left inguinal hernia Attending Physician: Amber Cloud MD Primary Care Provider: Emeka Lovett MD History of Present Illness History of Present Illness Blayne Martines Jr is a 74 year old male decompensated cirrhotic whom surgery was consulted for left inguinal hernia. No obstructive symptoms. Hernia is soft. No skin changes. Medications/Allergies Home Medications ?Medication ?Instructions ?Recorded ?Confirmed ?Last Taken ?Type nitroglycerin 0.4 mg sublingual 0.4 mg sublingual Q5M PRN chest 02/24/24 05/25/25 Unknown Rx tablet pain #25 tabs Allergies Allergy/AdvReac Type Severity Reaction Status Date / Time No Known Allergies Allergy Verified 05/02/25 13:01 Current Medications Generic Name Dose Route Start Last Admin Trade Name Freq PRN Reason Stop Dose Admin Norepinephrine Bitartrate 4 mg in 250 mls @ 0 mls/hr 05/25/25 09:30 05/25/25 11:20 Levophed IV 6 mcg/min .Q0M RANJITH 22.5 mls/hr Protocol Titration Per Protocol Potassium Chloride/Dextrose/Sod Cl 20 meq in 1,000 mls @ 100 mls/hr 05/25/25 11:20 05/25/25 13:31 D5-Ns 0.45% + Kcl 20 Meq IV 100 mls/hr .Q10H RANJITH Administration PFSH Acute 2 PFSH: Medical History (Updated 05/29/25 @ 13:46 by Christopher Ulrich MD) Tobacco use (HFpEF) heart failure with preserved eje ction fraction Thrombocytopenia Tobacco abuse SAMY (obstructive sleep apnea) ASHD (arteriosclerotic heart disease) Dyslipidemia Myocardial infarction Surgical History S/P knee surgery S/P PTCA (percutaneous transluminal coronary angioplasty) Family History Father Parkinson disease Social History Smoking and tobacco/nicotine status: current every day tobacco/nicotine user cigarettes Packs smoked per day: 1.5 Alcohol intake: current Alcohol intake frequency: holidays/special occasions only Household members: spouse Marital status: service: No Current occupational status: employed Current gender identity: Male Vitals/I&O/Wt Last Vital Signs Temp 97.5 F L 05/25/25 06:28 Pulse 75 05/25/25 11:39 Resp 14 05/25/25 10:35 BP 89/60 05/25/25 11:39 Pulse Ox 95 05/25/25 11:39 O2 Del Method Room Air 05/25/25 06:28 05/24/25 05/25/25 05/25/25 22:59 06:59 14:59 Intake Total 0 / 0 2851.285 / 2851.285 Balance 0 / 0 2851.285 / 2851.285 Weight last 48 hrs Weight 208 lb Physical Exam 2 Narrative: tachycardic on levophed tachypneic left inguinal hernia soft Data 05/29/25 08:15 05/29/25 08:15 Micro: Microbiology 05/25/25 06:53 Blood Culture - Preliminary Blood SPECIMEN COLLECTED 05/25/25 06:29 Blood Culture - Preliminary Blood SPECIMEN COLLECTED A&P Assessment and plan 1. Left inguinal hernia: Plan: 74 yo male with left inguinal hernia. Admitted for decompensated cirrhosis. No indication for emergent surgical repair. Follow up as outpatient. Patient should be evaluated by hepatology. PDMP PDMP Reviewed: Not Reviewed Coding Level of Care Code 09723 Diagnoses Left inguinal hernia K40.90
--- NOTE | 2025-05-25 13:54 | PM.MISC ---
Miscellaneous Note Note: Full consult note to follow Consulted for chronic inguinal hernia. Patient is admitted with decompensated cirrhosis. Unstable. Not a surgical candidate. Can follow up with general surgery clinic once his cirrhosis is medically managed and compensated.
[2025-05-25 14:02] LABS: Hepatitis A Antibody IgM Non-Reactive (Nonreactive); Hepatitis B Surface Antigen Non-Reactive (Nonreactive)
[2025-05-25 14:12] LABS: Ferritin 1728 ng/mL (30-400); Total Iron Binding Capacity 94.00001 mcg/dl; Unsaturated Iron Binding > 17 ug/dL (112-347)
[2025-05-25] MEDS: albumin 25 G/100 ML BAG 60 G IV ×2 (15:10→21:06)
--- NOTE | 2025-05-25 15:49 | P.CONIM_ITS ---
Providers/Reason For Consult 2 Consulting Physician/Specialty*: [facility]/Nephrology Reason for Consult*: STEPHAN Attending Physician: Amber Cloud MD Primary Care Provider: Emeka Lovett MD History of Present Illness History of Present Illness Blayne Martines Jr is a 74 year old male With past medical history significant for coronary artery disease with stents, CHF, history of alcohol use but quit many years ago, known history of cirrhosis but patient is not aware of having cirrhosis was brought to the hospital due to complaints of altered mental status. CT scan of the abdomen pelvis was performed in the ER that showed large inguinal hernia containing loops of colon associated with fluid and edema. General surgery has evaluated the patient in the ER. Patient was hypotensive and is admitted currently to ICU on Levophed at 4 mcg. Patient received IV fluid bolus in the ED normal saline - 2.5 L. Lab data significant for's sodium of 133, creatinine of 1.7, albumin 2.7,, platelet count 85,000, has elevated LFTs and bilirubin level of 5.7. Urine analysis showed trace protein no blood. Patient's family has mentioned poor p.o. intake with nausea vomiting for the last few days Review of Systems 2 Narrative: Negative Medications/Allergies Home Medications ?Medication ?Instructions ?Recorded ?Confirmed ?Last Taken ?Type nitroglycerin 0.4 mg sublingual 0.4 mg sublingual Q5M PRN chest 02/24/24 05/25/25 Unknown Rx tablet pain #25 tabs Allergies Allergy/AdvReac Type Severity Reaction Status Date / Time No Known Allergies Allergy Verified 05/02/25 13:01 Current Medications Generic Name Dose Route Start Last Admin Trade Name Freq PRN Reason Stop Dose Admin Norepinephrine Bitartrate 4 mg in 250 mls @ 0 mls/hr 05/25/25 09:30 05/25/25 11:20 Levophed IV 6 mcg/min .Q0M RANJITH 22.5 mls/hr Protocol Titration Per Protocol Albumin Human 25 g in 100 mls @ 60 mls/hr 05/25/25 14:00 05/25/25 15:10 Albumin IV 60 mls/hr Q8H RANJITH Administration PFSH Acute 2 PFSH: Medical History (Updated 05/25/25 @ 15:29 by Adama Ortiz DO) Tobacco use (HFpEF) heart failure with preserved eje ction fraction Thrombocytopenia Tobacco abuse SAMY (obstructive sleep apnea) ASHD (arteriosclerotic heart disease) Dyslipidemia Myocardial infarction Surgical History S/P knee surgery S/P PTCA (percutaneous transluminal coronary angioplasty) Family History Father Parkinson disease Social History Smoking and tobacco/nicotine status: current every day tobacco/nicotine user cigarettes Packs smoked per day: 1.5 Alcohol intake: current Alcohol intake frequency: holidays/special occasions only Household members: spouse Marital status: service: No Current occupational status: employed Current gender identity: Male Vitals/I&O/Wt Last Vital Signs Temp 97.5 F L 05/25/25 06:28 Pulse 75 05/25/25 11:39 Resp 14 05/25/25 10:35 BP 89/60 05/25/25 11:39 Pulse Ox 95 05/25/25 11:39 O2 Del Method Room Air 05/25/25 06:28 05/25/25 05/25/25 05/25/25 06:59 14:59 22:59 Intake Total 0 / 0 3101.285 / 3101.285 166.667 / 3267.952 Balance 0 / 0 3101.285 / 3101.285 166.667 / 3267.952 Weight last 48 hrs Weight 94.347 kg Physical Exam 2 Narrative: Patient is awake alert, no distress, on room air Jaundiced sclera S1-S2 regular rate and rhythm per report Lungs clear with decreased breath sounds bilaterally per report Abdomen soft nontender per report Has been pedal edema Data 05/25/25 06:29 05/25/25 06:29 Micro: Microbiology 05/25/25 06:53 Blood Culture - Preliminary Blood SPECIMEN COLLECTED 05/25/25 06:29 Blood Culture - Preliminary Blood SPECIMEN COLLECTED A&P Assessment and plan 1. Acute kidney injury: Plan: 1. Acute kidney injury: Baseline creatinine was 1.0 in December 2024. Now has STEPHAN with a creatinine of 1.7-likely prerenal in the background history of liver cirrhosis. HRS is possible. Will continue IV fluids-normal saline at 75 cc an hour, added IV albumin and midodrine. GN unlikely but will check serologies -Noted normal CK levels, UA with trace protein and no blood -Will check renal ultrasound, urine electrolytes - No indication for dialysis. 2. Liver cirrhosis: Likely from prior alcohol use. Check hepatitis serologies, . Question iron overload leading to cirrhosis , consider GI. Follow-up cirrhosis workup 3. Hyponatremia:, Likely hypovolemic, monitor 4. Hypokalemia, replete with potassium chloride 5. Anemia 6. History of coronary artery disease with stents Patient evaluated his evaluation. 40 minutes. PDMP PDMP Reviewed: Not Reviewed Consult Attestations 2 Medical Necessity Statement: per [facility] Coding Level of Care Code Acute Code for [facility] Fwd Diagnoses Acute kidney injury N17.9
--- NOTE | 2025-05-25 16:02 | USR_ITS ---
PROCEDURE INFORMATION: Exam: US Retroperitoneal, Complete, Kidneys and Bladder Exam date and time: 05/25/2025 6:36 PM Age: 74 years old Clinical indication: Condition or disease; Kidney or ureter condition; Other: [place] TECHNIQUE: Imaging protocol: Real-time ultrasound of the retroperitoneum with image documentation. Complete exam focused on the bilateral kidneys and urinary bladder. COMPARISON: CT abdomen pelvis wo con [id number] 05/25/2025 8:56 AM FINDINGS: Right kidney: Right kidney poorly visualized but measures approximately 7.4 cm in length with normal cortical thickness. Kidney may be slightly echogenic. No hydronephrosis is observed. No stones are evident. Left kidney: Left kidney is suboptimally visualized but measures approximately 8.7 cm in length. Cortical thickness is within the range of normal. Slightly echogenic cortex suggested. No hydronephrosis is apparent. No stones are evident. Urinary bladder: Bladder contains a catheter but is otherwise unremarkable. Intraperitoneal space: Ascites is present. US/US renal BI* [id number] IMPRESSION: 1. Small kidneys with slightly echogenic cortex suggesting chronic medical renal disease. No hydronephrosis. 2. Ascites incidentally noted.
--- NOTE | 2025-05-25 16:30 | PC.NURSE ---
Lab, at bedside, to draw Follow- up lactic acid. Pt refused. Dr Cloud notified of his refusal via secure messaging.
[2025-05-25 17:11] LABS: Hepatitis B Surface Antigen Non-Reactive (Nonreactive)
--- NOTE | 2025-05-25 18:00 | PC.NURSE ---
Left IV leaking and bloody. During cleaning up and changing out veniguard, small skin tears x 2 on outer aspect of elbow due to fragile skin and veniguard. Biocclusive dressing applied. Gauze and coban to secure area.
[2025-05-25 18:14] LABS: Creatinine Urine, Random 167 mg/dL (39-259)
[2025-05-25 18:29] LABS: Urine Random Sodium 10 mmol/L
--- NOTE | 2025-05-25 18:30 | PC.NURSE ---
Pt refused US of kidneys, discussed with his refusal of testing and labs will impair and impend his care and maybe prolong it. Pt agreed to US. Discussed transferring to a larger hospital for GI/ liver and kidney care per Dr Cloud's request, Pt refuses to tranfer out. Dr Cloud notified.
[2025-05-26] VITALS (96 sets, daily range): BP systolic 72–205; BP diastolic 39–110; PULSE 0–93; RESP 11–32; TEMP 36.3–36.6; O2SAT 79–100; BMI 27.8
[2025-05-26] MEDS: norepinephrine 4 MG/250 ML BAG 22.5 MG IV (01:36)
[2025-05-26] MEDS: albumin 25 G/100 ML BAG 60 G IV ×3 (05:07→23:59)
[2025-05-26 05:22] LABS: Hematocrit 25.5 % (37-53); Hemoglobin 8.50 g/dL (11.27-16.99); Mean Corpuscular HGB Conc 33.3 g/dL (30-55); Mean Corpuscular Hemoglobin 34.4 pg (27-33); Mean Corpuscular Volume 103.2 fl (82-101); Nucleated Red Blood Cells % 0 %; Platelet Count 63 10^3/cmm (157-399); Red Blood Count 2.47 10^6/uL (3.85-5.65); White Blood Count 8.73 10^3/uL (3.29-11.43)
[2025-05-26 05:34] LABS: Alanine Aminotransferase 105 U/L (0-41); Albumin Level 2.8 g/dL (3.5-5.2); Alkaline Phosphatase 174 U/L (40-130); Anion Gap 17.4 (5-19); Aspartate Amino Transferase 110 U/L (0-40); Blood Urea Nitrogen 27 mg/dL (8-23); Calcium 8.4 mg/dL (8.5-10.5); Carbon Dioxide 24 mmol/L (22-29); Chloride 96 mmol/L (98-107); Creatinine Clr Calc Pharmacy 54.8429; Globulin 2.7 g/dL (1.3-4.6); Glucose 92 mg/dL (65-115); Magnesium 2.2 mg/dL (1.7-2.3); Osmolality Calculated 283 mOsm/kg (285-295); Potassium 3.4 mmol/L (3.5-5.1); Sodium 134 mmol/L (136-145); Total Protein 5.5 g/dL (6.6-8.7)
[2025-05-26 05:39] LABS: Lactic Sepsis W/Reflex 2.8 mmol/L (0.5-2.2)
[2025-05-26 05:46] LABS: Reflex Lactate Order REFLEX LACTIC ORDERD
--- NOTE | 2025-05-26 06:36 | P.PN_ITS ---
Subjective 2 Subjective: Seen this morning. Patient's is at bedside. Patient is not wanting to be transferred to another any other facility. At 1 point he got frustrated and stated given the paperwork I am just got to leave AMA. Patient is still on 6 mics of Levophed. Earlier he was refusing PICC line as well however eventually agreed to it. I discussed with that we would have to do a central line and IJ if we cannot place a PICC line. I have been told by nursing staff that PICC team is not available today. Patient has made it very clear that there is no way he will get transferred. Discussion that we can treat him here however further diagnostic workup will have to take place at a higher level care facility. We will talk to radiologist on Wednesday to see if we can obtain a liver biopsy here. Patient will need gastroenterology consultation. Patient is upset why was not any of these diagnoses reported to him before. Patient's understands the scenario. Liver enzymes slightly improving Bilirubin improved slightly. Creatinine improving to 1.7. Vitals/I&O/Wt Last Vital Signs Temp 97.3 F L 05/26/25 00:15 Pulse 79 05/26/25 05:43 Resp 15 05/26/25 05:15 BP 101/60 05/26/25 06:00 Pulse Ox 91 05/26/25 06:00 O2 Del Method Room Air 05/26/25 06:00 O2 Flow Rate 2 05/26/25 04:15 05/25/25 05/25/25 05/26/25 14:59 22:59 06:59 Intake Total 3501.285 / 3501.285 639.167 / 4140.452 123.375 / 4263.827 Output Total 20 100 / 120 250 / 370 Balance 3481.285 / 3481.285 539.167 / 4020.452 -126.625 / 3893.827 Weight last 48 hrs Weight 93 kg Weight 91.5 kg Weight 94.347 kg Physical Exam 2 Narrative: General: Alert oriented x3, laying in bed in ICU 4. Scleral icterus present. HEENT: Normocephalic, atraumatic, EOMI, Respiratory clear to auscultation bilaterally no gross wheezes or rhonchi. Diminished sounds at bases. Cardio: Normal S1-S2, regular rate rhythm, scrotal swelling present 3+. (Partly due to inguinal hernia) GI: Abdomen soft, mildly distended, mild fluid wave appreciated. Nontender to palpation today. Behavior: Appropriate and cooperative Extremities: 3+ edema bilateral lower extremity up to thighs Urinary Catheter Management: Holt: Cath Placed During This Visit: yes Reason for Continuing Indwelling Catheter: Accurate Measurement of Urinary Output in Critically Ill Patients Urinary Catheter Date of Insertion: 05/25/25 Urinary Catheter Time of Insertion: 12:00 Data 05/26/25 04:04 05/26/25 04:04 Micro: Microbiology 05/25/25 06:53 Blood Culture - Preliminary Blood SPECIMEN COLLECTED 05/25/25 06:29 Blood Culture - Preliminary Blood SPECIMEN COLLECTED A&P Assessment and plan 1. (HFpEF) heart failure with preserved ejection fraction: 2. Status post fall: 3. Indirect left inguinal hernia: 4. Lower extremity edema: 5. Tobacco abuse: 6. Portal hypertension: 7. Splenomegaly: 8. Liver cirrhosis: 9. Hepatorenal syndrome: 10. Hypokalemia: 11. Anemia: 12. Hypotension: 13. Dyslipidemia: 14. Elevated liver enzymes: 15. Ascites: 16. Acute kidney injury: Plan: #Hypotension, STEPHAN most likely secondary to hepatorenal syndrome. #Decompensated Liver cirrhosis #Subtle icterus, jaundice #Possible SBP #Hyponatremia, hypokalemia #Lactic acidosis #Elevated liver enzymes #Heart failure preserved ejection fraction, decompensated #Anemia, thrombocytopenia #History of alcohol use in the past #Inguinal hernia - Consult nephrology. ? Continue to wean off Levophed as able ? Check hepatitis profile ? Check echocardiogram ? Thrombocytopenia most likely secondary to liver disease and history of alcohol use. Avoid DVT prophylaxis Lovenox versus heparin. ? Continue SCDs ? Hypokalemia. Replete with 40 oral x 1 ? Placed on cardiac diet ? Patient did get 2.8 L of normal saline in the ER. Lactic acid 4.3 on admission improved to 3.6 later on. ? I suspect he has hepatorenal syndrome with STEPHAN of creatinine 1.7. ? Possible SBP ? Order paracentesis with fluid analysis ? Will cover for 2 g of ceftriaxone daily. ? Goals of care discussion was done with the patient. He is alert oriented. Seems to have capacity. I am aware that initially was brought in for altered mental status however ER doctor nursing staff and I have seen him and believe he has capacity and does not appear to be confused at this time. Patient would like to be DNR/DNI. We did ask him if his is aware that these are his wishes and he said she should know. ? I will consider starting midodrine to try to wean off Levophed ? Order albumin every 8 hours IV ? Discussed with general surgery on-call. Due to patient's decompensated liver cirrhosis status STEPHAN pararenal syndrome he would not be a candidate for surgery at this time. General surgeon will evaluate CT abdomen for inguinal hernia. ? Started midodrine 10 3 times daily ? Patient will likely benefit from GI consultation. ? Check ferritin level. DNR/DNI DVT prophylaxis: SCDs 05/26/2025 Continue IV fluids, midodrine, albumin per nephrology Wean off Levophed if able to Replete potassium Continue to provide supportive care for hepatorenal syndrome decompensated liver cirrhosis. Recheck labs in AM. Preferably place a PICC line as patient has ongoing need to Levophed at this time and has been refusing blood draws at times. Patient has been refusing care at times. He does have capacity to make decisions. He has refused transfer. I have had an extensive discussion with patient and his this morning and nursing staff. Patient would benefit from gastroenterology consultation. Continue to manage here. Discussed with interventional radiology on Wednesday for possible liver biopsy at our facility. Check ANNEL, double-stranded DNA, anti-smooth muscle antibody, GGT, antimitochondrial antibody CT abdomen pelvis did show increased attenuation gallbladder may be due to viscous excretion of contrast or increased attenuation sludge. Single gallbladder calculus present. Gallbladder is decompressed. Check ultrasound abdomen to further evaluate gallbladder. Continue ceftriaxone 2 g daily I will order MRCP after evaluation of ultrasound abdomen. Paracentesis with labs planned for Wednesday. PDMP PDMP Reviewed: Not Reviewed Attestations 2 Medical Necessity Statement*: Hepatorenal syndrome. Diagnoses (HFpEF) heart failure with preserved ejection fraction I50.30 Status post fall Z91.81 Indirect left inguinal hernia K40.90 Lower extremity edema R60.0 Tobacco abuse Z72.0 Portal hypertension K76.6 Splenomegaly R16.1 Liver cirrhosis K74.60 Hepatorenal syndrome K76.7 Hypokalemia E87.6 Anemia D64.9 Hypotension I95.9 Dyslipidemia E78.5 Elevated liver enzymes R74.8 Ascites R18.8 Acute kidney injury N17.9
--- NOTE | 2025-05-26 10:30 | P.PN_ITS ---
Subjective 2 Subjective: no new c/o Medications: Reviewed: Yes Vitals/I&O/Wt Last Vital Signs Temp 97.3 F L 05/26/25 00:15 Pulse 81 05/26/25 10:00 Resp 19 H 05/26/25 10:00 BP 106/60 05/26/25 10:00 Pulse Ox 97 05/26/25 10:00 O2 Del Method Room Air 05/26/25 06:00 O2 Flow Rate 2 05/26/25 04:15 05/25/25 05/26/25 05/26/25 22:59 06:59 14:59 Intake Total 639.167 / 4140.452 123.375 / 4263.827 576.813 / 576.813 Output Total 100 / 120 250 / 370 Balance 539.167 / 4020.452 -126.625 / 3893.827 576.813 / 576.813 Weight last 48 hrs Weight 93 kg Weight 91.5 kg Weight 94.347 kg Physical Exam 2 Narrative: Patient is awake alert, no distress, on room air Jaundiced sclera S1-S2 regular rate and rhythm per report Lungs clear with decreased breath sounds bilaterally per report Abdomen soft nontender per report Has been pedal edema Urinary Catheter Management: Holt: Cath Placed During This Visit: yes Reason for Continuing Indwelling Catheter: Accurate Measurement of Urinary Output in Critically Ill Patients Urinary Catheter Date of Insertion: 05/25/25 Urinary Catheter Time of Insertion: 12:00 Data 05/26/25 04:04 05/26/25 04:04 Micro: Microbiology 05/25/25 06:53 Blood Culture - Preliminary Blood NEGATIVE TO DATE 05/25/25 06:29 Blood Culture - Preliminary Blood NEGATIVE TO DATE A&P Assessment and plan 1. Acute kidney injury: Plan: 1. Acute kidney injury: Baseline creatinine was 1.0 in December 2024. Now has STEPHAN with a creatinine of 1.7-likely prerenal in the background history of liver cirrhosis. HRS is possible. Will continue IV fluids-normal saline at 75 cc an hour, added IV albumin and midodrine. GN unlikely but will check serologies -Noted normal CK levels, UA with trace protein and no blood -Will check renal ultrasound, urine electrolytes - No indication for dialysis. 2. Liver cirrhosis: Likely from prior alcohol use. Check hepatitis serologies, . Question iron overload leading to cirrhosis , consider GI. Follow-up cirrhosis workup 3. Hyponatremia:, Likely hypovolemic, monitor 4. Hypokalemia, replete with potassium chloride 5. Anemia 6. History of coronary artery disease with stents Patient evaluated his evaluation. 40 minutes. PDMP PDMP Reviewed: Not Reviewed Attestations 2 Medical Necessity Statement*: per [facility] Coding Level of Care Code Acute Code for [facility] Fwd Diagnoses Acute kidney injury N17.9
--- NOTE | 2025-05-26 12:08 | USR_ITS ---
PROCEDURE INFORMATION: Exam: US Abdomen Complete Exam date and time: 05/26/2025 7:33 PM Age: 74 years old Clinical indication: Abnormal findings; Abnormal radiologic finding of the abdomen; Radiologic exam and body structure: CT gb; Additional info: Gallblader stone, sludge, notified nurses to keep him npo and will scan him this evening. CR TECHNIQUE: Imaging protocol: Real-time ultrasound of the abdomen with image documentation. Complete exam. COMPARISON: CT abdomen pelvis wo con [id number] 05/25/2025 8:56 AM FINDINGS: Liver: Enlarged liver to 17.9 cm with a cirrhotic morphology. Gallbladder: Cholelithiasis with gallbladder wall thickening to 5 mm which may be due to ascites, consider correlation with nuclear medicine HIDA scan if concern for cholecystitis remains. Biliary ducts: Normal. No stones. No dilation. Pancreas: Visualized pancreas is unremarkable. Right kidney: Normal. No mass. No hydronephrosis. Left kidney: Normal. No mass. No hydronephrosis. Spleen: Normal. No splenomegaly. Intraperitoneal space: Large amount of abdominal ascites. Aorta: Normal. No aneurysm. Inferior vena cava: Normal. US/US abdomen complete* [id number] IMPRESSION: 1. Large amount of abdominal ascites. 2. Cholelithiasis with gallbladder wall thickening to 5 mm which may be due to ascites, consider correlation with nuclear medicine HIDA scan if concern for cholecystitis remains. 3. Enlarged liver to 17.9 cm with a cirrhotic morphology.
[2025-05-26] MEDS: piperacillin-tazobactam 3.375 GM in sodium chloride 0.9% (plus) 50 ML IV ×2 (12:36→23:25)
--- NOTE | 2025-05-26 12:56 | P.PN_ITS ---
Subjective 2 Subjective: soft left inguinal hernia Vitals/I&O/Wt Last Vital Signs Temp 97.3 F L 05/26/25 00:15 Pulse 72 05/26/25 12:45 Resp 18 05/26/25 12:45 BP 167/86 05/26/25 12:45 Pulse Ox 94 05/26/25 12:45 O2 Del Method Room Air 05/26/25 06:00 O2 Flow Rate 2 05/26/25 04:15 05/25/25 05/26/25 05/26/25 22:59 06:59 14:59 Intake Total 639.167 / 4140.452 123.375 / 4263.827 576.813 / 576.813 Output Total 100 / 120 250 / 370 Balance 539.167 / 4020.452 -126.625 / 3893.827 576.813 / 576.813 Weight last 48 hrs Weight 205 lb 0.478 oz Weight 201 lb 11.567 oz Weight 208 lb Physical Exam 2 Narrative: tachypneic and tachycardic abdomen soft soft left inguinal hernia Urinary Catheter Management: Holt: Cath Placed During This Visit: yes Reason for Continuing Indwelling Catheter: Accurate Measurement of Urinary Output in Critically Ill Patients Urinary Catheter Date of Insertion: 05/25/25 Urinary Catheter Time of Insertion: 12:00 Data 05/29/25 08:15 05/29/25 08:15 Micro: Microbiology 05/25/25 06:53 Blood Culture - Preliminary Blood NEGATIVE TO DATE 05/25/25 06:29 Blood Culture - Preliminary Blood NEGATIVE TO DATE A&P Assessment and plan 1. Left inguinal hernia: Plan: 74 yo male admitted with decompensated liver disease. No indication for hernia repair. Rest of care per medicine. PDMP PDMP Reviewed: Not Reviewed Attestations 2 Medical Necessity Statement*: NA Coding Level of Care Code 52374 Diagnoses Left inguinal hernia K40.90
[2025-05-26 13:57] LABS: Lipase 32 U/L (13-60)
--- NOTE | 2025-05-26 14:10 | PC.NURSE ---
pt made npo after small lunch for mrcp and ultrasound of abdomen noted gown with blood on it and also on sheet and blankets , refused to let staff change them requested we leave him alone and not bother him , refused any tests at this time at bedside aware pt not pleased with being in hospital . wants to be left alone
[2025-05-26 16:02] LABS: Lactic Acid level (Lactate) 2.9 mmol/L (0.5-2.2)
[2025-05-26] MEDS: norepinephrine 4 MG/250 ML BAG 15 MG IV (17:05)
--- NOTE | 2025-05-26 17:14 | PC.NURSE ---
update to doctor levophed restarted low dose to keep mean above 65 pt continues to no want procedures or change linen /clothes
--- NOTE | 2025-05-26 23:31 | PM.ACPR ---
Acute Procedures Central Line Placement: Right IJ: Time out performed: Yes Patient placed on monitor/pulse ox: Yes MD prep: mask, gown and gloves Central line prep: Povidone-Iodine 1% Local anesthesia used: lidocaine 1% Amount of anesthesia used (ml): 2 Ultrasound used for placement: Yes Patient tolerated procedure: well Additional comments: With ultrasound guidance introducer needle entered into right IJ, guidewire threaded smoothly without issues. Despite scalpel kavita at the access and gentle dilation, catheter would not go in smoothly and more resistance encountered with depth, not wanting to force it, catheter and guidewire withdrawn. Additional cannulation attempted more proximally with a more relaxed angle, however, at that point he requested to terminate the procedure.
[2025-05-27] VITALS (97 sets, daily range): BP systolic 80–130; BP diastolic 41–90; PULSE 54–106; RESP 8–30; TEMP 36.6–36.7; O2SAT 67–100
[2025-05-27 04:18] LABS: Hematocrit 23.8 % (37-53); Hemoglobin 7.70 g/dL (11.27-16.99); Mean Corpuscular HGB Conc 32.4 g/dL (30-55); Mean Corpuscular Hemoglobin 33.3 pg (27-33); Mean Corpuscular Volume 103.0 fl (82-101); Nucleated Red Blood Cells % 0 %; Platelet Count 57 10^3/cmm (157-399); Red Blood Count 2.31 10^6/uL (3.85-5.65); White Blood Count 5.26 10^3/uL (3.29-11.43)
[2025-05-27 04:43] LABS: Magnesium 2.2 mg/dL (1.7-2.3)
[2025-05-27 04:45] LABS: Alanine Aminotransferase 92 U/L (0-41); Albumin Level 2.8 g/dL (3.5-5.2); Alkaline Phosphatase 147 U/L (40-130); Anion Gap 14.6 (5-19); Aspartate Amino Transferase 102 U/L (0-40); Blood Urea Nitrogen 26 mg/dL (8-23); Calcium 8.3 mg/dL (8.5-10.5); Carbon Dioxide 24 mmol/L (22-29); Chloride 100 mmol/L (98-107); Creatinine Clr Calc Pharmacy 54.8429; Globulin 2.3 g/dL (1.3-4.6); Glucose 77 mg/dL (65-115); Osmolality Calculated 284 mOsm/kg (285-295); Potassium 3.6 mmol/L (3.5-5.1); Sodium 135 mmol/L (136-145); Total Protein 5.1 g/dL (6.6-8.7)
[2025-05-27] MEDS: albumin 25 G/100 ML BAG 60 G IV ×3 (05:10→21:10)
[2025-05-27] MEDS: piperacillin-tazobactam 3.375 GM in sodium chloride 0.9% (plus) 50 ML IV ×3 (05:10→21:10)
[2025-05-27 06:31] LABS: PROTEIN, TOTAL 5.1 g/dL (6.1-8.1)
--- NOTE | 2025-05-27 08:23 | PC.NURSE ---
pt here informed last night events request transfer and maninder denied not necessary , also unable to obtain central line and had IO placed in leg as blood pressure dropped again requiring higher doses of levophed , very tearfull and anxious wanting to talk with doctor about where we go now with his care, message relayed to doctor she voices possibly [place] as he works for the [employer] and pt replied whatever my says now leave me alone and let me sleep
[2025-05-27] MEDS: HYDROcodone-acetaminophen 5-325 mg Tablet 1 TAB PO ×2 (08:35→14:07)
[2025-05-27 11:05] LABS: Hematocrit 23.8 % (37-53); Hemoglobin 7.60 g/dL (11.27-16.99); Mean Corpuscular HGB Conc 31.9 g/dL (30-55); Mean Corpuscular Hemoglobin 34.1 pg (27-33); Mean Corpuscular Volume 106.7 fl (82-101); Nucleated Red Blood Cells % 0 %; Platelet Count 47 10^3/cmm (157-399); Red Blood Count 2.23 10^6/uL (3.85-5.65); White Blood Count 5.37 10^3/uL (3.29-11.43)
--- NOTE | 2025-05-27 11:17 | PC.NURSE ---
Dr Givens here talked with and pt .. agree to transfer, [facility] called no bed available, and [facility] in [facility] doesnt do ercp. call placed to [facility]
--- NOTE | 2025-05-27 13:42 | PC.NURSE ---
call also placed to [facility] for transfer at this time , status unchange IO on levophed gtt keeping updated about status continue to try transfer, has been more comfortable with prior pain medication
[2025-05-27] MEDS: norepinephrine 4 MG/250 ML BAG 22.5 MG IV (14:08)
--- NOTE | 2025-05-27 14:23 | PC.NURSE ---
on waiting list for [facility] to get bed has been accepted at this time pt and notified
--- NOTE | 2025-05-27 14:25 | P.PN_ITS ---
Subjective 2 Subjective: no new c/o Medications: Reviewed: Yes Vitals/I&O/Wt Last Vital Signs Temp 98 F 05/27/25 13:00 Pulse 66 05/27/25 14:15 Resp 12 05/27/25 14:15 BP 109/62 05/27/25 14:15 Pulse Ox 95 05/27/25 14:15 O2 Del Method Room Air 05/26/25 20:00 O2 Flow Rate 2 05/26/25 04:15 05/26/25 05/27/25 05/27/25 22:59 06:59 14:59 Intake Total 150 / 800.000 274.313 / 1074.313 456.687 / 456.687 Output Total 300 / 300 450 / 750 Balance -150 / 500.000 -175.687 / 324.313 456.687 / 456.687 Weight last 48 hrs Weight 94.5 kg Weight 94.5 kg Weight 93 kg Physical Exam 2 Narrative: Patient is awake alert, no distress, on room air Jaundiced sclera S1-S2 regular rate and rhythm per report Lungs clear with decreased breath sounds bilaterally per report Abdomen soft nontender per report Has been pedal edema Urinary Catheter Management: Holt: Cath Placed During This Visit: yes Reason for Continuing Indwelling Catheter: Accurate Measurement of Urinary Output in Critically Ill Patients Urinary Catheter Date of Insertion: 05/25/25 Urinary Catheter Time of Insertion: 12:00 Data 05/27/25 10:40 05/27/25 03:16 A&P Assessment and plan 1. Acute kidney injury: Plan: 1. Acute kidney injury: Baseline creatinine was 1.0 in December 2024. Now has STEPHAN with a creatinine of 1.7-likely prerenal in the background history of liver cirrhosis. HRS is possible. added IV albumin and midodrine. GN unlikely but will check serologies -Noted normal CK levels, UA with trace protein and no blood -Will check renal ultrasound, urine electrolytes - No indication for dialysis. 2. Liver cirrhosis: Likely from prior alcohol use. Neg hepatitis serologies, . Question iron overload , plan for liver biopsy pt refused transfer for higher level care 3. Hyponatremia:, Likely hypovolemic, monitor 4. Hypokalemia, repleted 5. Anemia 6. History of coronary artery disease with stents Patient evaluated his evaluation. 40 minutes. PDMP PDMP Reviewed: Not Reviewed Attestations 2 Medical Necessity Statement*: per medicne Coding Level of Care Code Acute Code for Chg Fwd Diagnoses Acute kidney injury N17.9
--- NOTE | 2025-05-27 19:16 | PC.NURSE ---
called about i o in leg at 24hr mn question [facility] and has been attempted twice will continue to wait for picc am
--- NOTE | 2025-05-27 21:51 | PM.PN ---
Subjective Subjective: Patient is weak and has been accepted by [facility] awaiting for bed placement. Patient denies any new complaints Medications: Reviewed: Yes Vitals/I&O/Wt Last Vital Signs Temp 98 F 05/27/25 13:00 Pulse 73 05/27/25 18:15 Resp 28 H 05/27/25 18:15 BP 115/67 05/27/25 18:15 Pulse Ox 96 05/27/25 18:15 O2 Del Method Room Air 05/26/25 20:00 O2 Flow Rate 2 05/26/25 04:15 05/27/25 05/27/25 05/27/25 06:59 14:59 22:59 Intake Total 274.313 / 1074.313 456.687 / 456.687 310.5 / 767.187 Output Total 450 / 750 200 / 200 Balance -175.687 / 324.313 456.687 / 456.687 110.5 / 567.187 Weight last 48 hrs Weight 94.5 kg Weight 94.5 kg Weight 93 kg Physical Exam Narrative: Generally patient is weak lying down in bed jaundiced HEENT normocephalic atraumatic sclera is very jaundiced patient is pale. Neck neck is supple Cardiovascular heart rate is regular, patient is on levo because of persistent hypotension with MAP in the 50s Lungs are clear to auscultation Abdomen is soft nontender nondistended unremarkable extremities are intact Neurology no focality Urinary Catheter Management: Holt: Cath Placed During This Visit: yes Reason for Continuing Indwelling Catheter: Accurate Measurement of Urinary Output in Critically Ill Patients Urinary Catheter Date of Insertion: 05/25/25 Urinary Catheter Time of Insertion: 12:00 Data 05/27/25 10:40 05/27/25 03:16 A&P Assessment and plan 1. Acute kidney injury: Continue to monitor acute renal injury, avoid nephrotoxic medications and other elements 2. Ascites: Anxieties will continue to follow-up, if we can tap it would be ideal to check for malignant cells and infection 3. Elevated liver enzymes: Will follow through with liver enzymes for routine CMP 4. Hypokalemia: Hypokalemia will continue to optimize make sure magnesium is at optimal level 5. Hepatorenal syndrome: This is also presenting as hepatorenal syndrome - Continue to treat and optimize 6. Hypotension: Hypotension patient is on Levophed Patient has been accepted to [facility] critical care unit and will not be able to go at this time because bed are not available at the moment once bed opens so patient can then transfer 7. Anemia: Anemia of chronic disease regarding liver cirrhosis 8. Hypoglycemia: Hypoglycemia today with a blood sugar of 47 in the serum today Hypoglycemic protocol in place Patient is not on any insulin or any hypoglycemic agent As continue to watch and treat carefully Plan: Patient with liver cirrhosis and this is the umbrella where all patient's problem lies. 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 Patient needs for at least 48 hours of care but could transfer at any moment accepting hospital reach out for patient to come over. GI DVT prophylaxis in place Time Spent in Patient Care: 35 minutes Coding Level of Care Code 60914 Diagnoses Acute kidney injury N17.9 Ascites R18.8 Elevated liver enzymes R74.8 Hypokalemia E87.6 Hepatorenal syndrome K76.7 Hypotension I95.9 Anemia D64.9 Hypoglycemia E16.2 Time Spent (min) 35
[2025-05-28] VITALS (63 sets, daily range): BP systolic 84–146; BP diastolic 44–73; PULSE 50–94; RESP 8–29; TEMP 36.4–36.6; O2SAT 89–100; BMI 30.1
[2025-05-28] MEDS: albumin 25 G/100 ML BAG 60 G IV ×3 (05:00→21:00)
[2025-05-28] MEDS: piperacillin-tazobactam 3.375 GM in sodium chloride 0.9% (plus) 50 ML IV ×3 (05:01→20:19)
--- NOTE | 2025-05-28 06:05 | NM_ITS ---
WS: [id number] NUCLEAR MEDICINE HIDA SCAN CLINICAL INFORMATION: Assess for possible cholecystitis. TECHNIQUE: Following intravenous administration of 8.4 mCi of technetium 99m mebrofenin, images of the abdomen were obtained over the course of 60 minutes. Next, gallbladder ejection fraction was determined by obtaining preprandial and one-hour postprandial images of the gallbladder following oral ingestion of Ensure. FINDINGS: Cirrhotic liver. Cardiomegaly. Persistent radiotracer in the liver at 120 minutes compatible with hepatic dysfunction and poor hepatic excretion. This compromises gallbladder evaluation and can result in false positive for cholecystitis. Normal common bile duct and small bowel activity. Gallbladder is not visualized 120 minutes which can be seen with cholecystitis but is indeterminant due to poor hepatic excretion. This could be due gallbladder contraction and vicarious contrast stasis as seen in the gallbladder on the recent CT abdomen pelvis. MRCP has been ordered and may yield additional information. Common bile duct is patent. NM/NM hepatobiliary w phar* [id number] IMPRESSION: See discussion above
[2025-05-28] MEDS: norepinephrine 4 MG/250 ML BAG 22.5 MG IV (07:09)
--- NOTE | 2025-05-28 08:06 | PC.SOCIAL ---
IMM Update Pg. 2 of IMM updated and reviewed with patient, who verbalized understanding. Copy provided.
--- NOTE | 2025-05-28 09:44 | PM.PN ---
Subjective Subjective: Labs pending, denies any complaints, poor oral intake Medications: Reviewed: Yes Vitals/I&O/Wt Last Vital Signs Temp 97.8 F 05/28/25 05:45 Pulse 74 05/28/25 09:15 Resp 15 05/28/25 09:15 BP 121/58 05/28/25 09:15 Pulse Ox 94 05/28/25 09:15 O2 Del Method Room Air 05/28/25 09:15 O2 Flow Rate 2 05/26/25 04:15 05/27/25 05/28/25 05/28/25 22:59 06:59 14:59 Intake Total 430.25 / 886.937 193.063 / 1080.000 76.687 / 76.687 Output Total 200 / 200 350 / 550 Balance 230.25 / 686.937 -156.937 / 530.000 76.687 / 76.687 Weight last 48 hrs Weight 100.732 kg Weight 94.5 kg Weight 94.5 kg Physical Exam Narrative: Patient is awake alert, no distress, on room air Jaundiced sclera S1-S2 regular rate and rhythm per report Lungs clear with decreased breath sounds bilaterally per report Abdomen soft nontender per report Has been pedal edema Urinary Catheter Management: Holt: Cath Placed During This Visit: yes Reason for Continuing Indwelling Catheter: Accurate Measurement of Urinary Output in Critically Ill Patients Urinary Catheter Date of Insertion: 05/25/25 Urinary Catheter Time of Insertion: 12:00 Data 05/27/25 10:40 05/27/25 03:16 Micro: Microbiology 05/25/25 06:29 Blood Culture - Preliminary Blood A&P Assessment and plan 1. Acute kidney injury: Plan: 1. Acute kidney injury: Baseline creatinine was 1.0 in December 2024. Now has STEPHAN with a creatinine of 1.7-likely prerenal in the background history of liver cirrhosis. HRS is possible. added IV albumin and midodrine. GN unlikely but will check serologies-pending -Noted normal CK levels, UA with trace protein and no blood -Renal ultrasound noted, no obstruction - No indication for dialysis. 2. Liver cirrhosis: Likely from prior alcohol use. Neg hepatitis serologies, . Question iron overload , plan for further workup and awaiting transfer to [facility] 3. Hyponatremia:, Likely hypovolemic, monitor 4. Hypokalemia, repleted 5. Anemia 6. History of coronary artery disease with stents Patient evaluated his evaluation. 40 minutes. PDMP PDMP Reviewed: Not Reviewed Attestations Medical Necessity Statement*: Per medicine team Coding Level of Care Code Acute Code for Chg Fwd Diagnoses Acute kidney injury N17.9
--- NOTE | 2025-05-28 10:36 | XRR_ITS ---
PROCEDURE INFORMATION: Exam: XR Chest Exam date and time: 05/28/2025 11:05 AM Age: 74 years old Clinical indication: Device placement; Picc; Additional info: Post picc insertion, kala placing in icu 4. Should be ready at 1110 TECHNIQUE: Imaging protocol: Radiologic exam of the chest. Views: 1 view. COMPARISON: CR XR chest 1V portable [id number] 05/25/2025 6:54 AM FINDINGS: Tubes, catheters and devices: Right PICC line terminates near the atriocaval junction. Lungs: Mild hypoventilatory changes in the lower lobes. Pleural spaces: Unremarkable. No pleural effusion. No pneumothorax. Heart/Mediastinum: Unremarkable. No cardiomegaly. Bones/joints: Unremarkable. XR/XR chest 1V portable [id number] IMPRESSION: PICC line terminates near the atrial caval junction.
--- NOTE | 2025-05-28 10:45 | PICC.NOTE ---
Triple lumen PICC placed to right basilic vein. Referred to vascular access nurse for PICC placement due to poor access and us of vasopressors. Risks and benefits discussed and informed consent obtained from pt. Right arm assessed with right basilic vein measuring 4.0 mm, straight, and apparent best choice for placement. Using sterile technique and MST, right basilic vein accessed x 1 stick. Mid-arm circumference measured 10 cm from right AC 27 cm. Trimmed cath 43 cm with 0 cm external length noted. CXR shows tip to appear to be at cavoatrial junction. Awaiting radiologist to read. Line secured with stat-lock. Insertion site covered with Biopatch and TSM. Report given to bedside nurse, JAVIER Conway.
[2025-05-28 11:26] LABS: Hematocrit 23.4 % (37-53); Hemoglobin 7.80 g/dL (11.27-16.99); Mean Corpuscular HGB Conc 33.3 g/dL (30-55); Mean Corpuscular Hemoglobin 34.8 pg (27-33); Mean Corpuscular Volume 104.5 fl (82-101); Nucleated Red Blood Cells % 0 %; Platelet Count 49 10^3/cmm (157-399); Red Blood Count 2.24 10^6/uL (3.85-5.65); White Blood Count 5.62 10^3/uL (3.29-11.43)
[2025-05-28 11:43] LABS: Alanine Aminotransferase 84 U/L (0-41); Albumin Level 3.3 g/dL (3.5-5.2); Alkaline Phosphatase 122 U/L (40-130); Anion Gap 19.5 (5-19); Aspartate Amino Transferase 102 U/L (0-40); Blood Urea Nitrogen 24 mg/dL (8-23); Calcium 8.3 mg/dL (8.5-10.5); Carbon Dioxide 21 mmol/L (22-29); Chloride 101 mmol/L (98-107); Creatinine Clr Calc Pharmacy 72.3773; Globulin 1.8 g/dL (1.3-4.6); Glucose 70 mg/dL (65-115); Osmolality Calculated 288 mOsm/kg (285-295); Potassium 3.5 mmol/L (3.5-5.1); Sodium 138 mmol/L (136-145); Total Protein 5.1 g/dL (6.6-8.7)
--- NOTE | 2025-05-28 17:04 | PC.NURSE ---
Patient refused to do MRI today, states, I just want to rest .
--- NOTE | 2025-05-28 17:05 | PC.NURSE ---
Patient refusing dressing changes and turning, states, I just want to rest .
[2025-05-29] VITALS (68 sets, daily range): BP systolic 89–123; BP diastolic 39–89; PULSE 59–97; RESP 11–25; TEMP 36.4; O2SAT 90–99
[2025-05-29] MEDS: norepinephrine 4 MG/250 ML BAG 15 MG IV (00:39)
[2025-05-29] MEDS: piperacillin-tazobactam 3.375 GM in sodium chloride 0.9% (plus) 50 ML IV ×3 (04:28→21:06)
[2025-05-29] MEDS: albumin 25 G/100 ML BAG 60 G IV ×3 (05:25→21:06)
[2025-05-29 09:31] LABS: Hematocrit 22.8 % (37-53); Hemoglobin 7.60 g/dL (11.27-16.99); Mean Corpuscular HGB Conc 33.3 g/dL (30-55); Mean Corpuscular Hemoglobin 35.0 pg (27-33); Mean Corpuscular Volume 105.1 fl (82-101); Nucleated Red Blood Cells % 0 %; Platelet Count 42 10^3/cmm (157-399); Red Blood Count 2.17 10^6/uL (3.85-5.65); White Blood Count 5.79 10^3/uL (3.29-11.43)
[2025-05-29 09:57] LABS: Alanine Aminotransferase 90 U/L (0-41); Albumin Level 3.6 g/dL (3.5-5.2); Alkaline Phosphatase 115 U/L (40-130); Anion Gap 17.5 (5-19); Aspartate Amino Transferase 114 U/L (0-40); Blood Urea Nitrogen 22 mg/dL (8-23); Calcium 8.5 mg/dL (8.5-10.5); Carbon Dioxide 22 mmol/L (22-29); Chloride 101 mmol/L (98-107); Creatinine Clr Calc Pharmacy 59.7103; Globulin 1.8 g/dL (1.3-4.6); Glucose 85 mg/dL (65-115); Magnesium 2.2 mg/dL (1.7-2.3); Osmolality Calculated 287 mOsm/kg (285-295); Potassium 3.5 mmol/L (3.5-5.1); Sodium 137 mmol/L (136-145); Total Protein 5.4 g/dL (6.6-8.7)
--- NOTE | 2025-05-29 10:06 | P.PN_ITS ---
Subjective 2 Subjective: no new c/o awaiting transfer to [facility] Medications: Reviewed: Yes Vitals/I&O/Wt Last Vital Signs Temp 97.6 F 05/29/25 04:00 Pulse 69 05/29/25 06:30 Resp 22 H 05/29/25 06:30 BP 104/58 05/29/25 06:30 Pulse Ox 95 05/29/25 06:30 O2 Del Method Room Air 05/29/25 04:00 O2 Flow Rate 2 05/26/25 04:15 05/28/25 05/29/25 05/29/25 22:59 06:59 14:59 Intake Total 460 / 724.187 250.00 / 974.187 150 / 150 Output Total 300 / 850 600 / 1450 Balance 160 / -125.813 -350 / -475.813 150 / 150 Weight last 48 hrs Weight 95.3 kg Weight 100.732 kg Physical Exam 2 Narrative: Patient is awake alert, no distress, on room air Jaundiced sclera S1-S2 regular rate and rhythm per report Lungs clear with decreased breath sounds bilaterally per report Abdomen soft nontender per report Has been pedal edema Urinary Catheter Management: Holt: Cath Placed During This Visit: yes Reason for Continuing Indwelling Catheter: Accurate Measurement of Urinary Output in Critically Ill Patients Urinary Catheter Date of Insertion: 05/25/25 Urinary Catheter Time of Insertion: 12:00 Data 05/29/25 08:15 05/29/25 08:15 Micro: Microbiology 05/28/25 11:15 Blood Culture - Preliminary Blood SPECIMEN COLLECTED 05/28/25 11:11 Blood Culture - Preliminary Blood SPECIMEN COLLECTED A&P Assessment and plan 1. Acute kidney injury: Plan: 1. Acute kidney injury: Baseline creatinine was 1.0 in December 2024. Now has STEPHAN with a creatinine of 1.7-likely prerenal in the background history of liver cirrhosis. HRS is possible. added IV albumin and midodrine. GN unlikely but will check serologies-pending -Noted normal CK levels, UA with trace protein and no blood -Renal ultrasound noted, no obstruction - No indication for dialysis. 2. Liver cirrhosis: Likely from prior alcohol use. Neg hepatitis serologies, . Question iron overload , plan for further workup and awaiting transfer to [facility] 3. Hyponatremia:, Likely hypovolemic, monitor 4. Hypokalemia, repleted 5. Anemia 6. History of coronary artery disease with stents Patient evaluated his evaluation. 40 minutes. PDMP PDMP Reviewed: Not Reviewed Attestations 2 Medical Necessity Statement*: per medicine Coding Level of Care Code Acute Code for Chg Fwd Diagnoses Acute kidney injury N17.9
--- NOTE | 2025-05-29 15:02 | PC.NURSE ---
Pt refuses to take Midodrine at this time, ( due at 1500). Will attempt again later.
--- NOTE | 2025-05-29 15:34 | P.PN_ITS ---
Subjective 2 Subjective: Patient is status quo with no complaints still on levo drip patient is waiting for bed at [place] for liver failure with cirrhosis awaiting for hepatology care Vitals/I&O/Wt Last Vital Signs Temp 97.6 F 05/29/25 13:00 Pulse 74 05/29/25 14:00 Resp 21 H 05/29/25 14:00 BP 108/66 05/29/25 14:00 Pulse Ox 98 05/29/25 14:00 O2 Del Method Room Air 05/29/25 14:00 O2 Flow Rate 2 05/26/25 04:15 05/29/25 05/29/25 05/29/25 06:59 14:59 22:59 Intake Total 250.00 / 974.187 894.375 / 894.375 Output Total 600 / 1450 Balance -350 / -475.813 894.375 / 894.375 Weight last 48 hrs Weight 95.3 kg Weight 100.732 kg Physical Exam 2 Narrative: Patient is alert awake oriented able to mentate is always at the bedside HEENT normocephalic atraumatic neck neck is supple cardiovascular heart rate is regular lungs are pretty much clear abdomen soft nontender nondistended unremarkable extremities intact no edema has good pulses neurology he has no focality lab studies lab studies reviewed and noted. Urinary Catheter Management: Holt: Cath Placed During This Visit: yes Reason for Continuing Indwelling Catheter: Accurate Measurement of Urinary Output in Critically Ill Patients Urinary Catheter Date of Insertion: 05/25/25 Urinary Catheter Time of Insertion: 12:00 Data 05/29/25 08:15 05/29/25 08:15 Micro: Microbiology 05/28/25 11:11 Blood Culture - Preliminary Blood NEGATIVE TO DATE 05/28/25 11:15 Blood Culture - Preliminary Blood NEGATIVE TO DATE A&P Assessment and plan 1. Hypoglycemia: 2. Pneumonia: 3. Sepsis: 4. Acute kidney injury: Acute on chronic renal failure patient is improving and GFR is above 36 5. Ascites: Ascites coming from the GI tract regarding liver failure. - I initiated lactulose patient is also on Lasix must continue to monitor closely 6. 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 Hypokalemia: Hypokalemia optimize Green's is marginal with a potassium of 3.5 and one-time dose of 20 mEq of potassium can be given today 8. Hepatorenal syndrome: Patient is persistently hypotensive and with pressor on board Levophed at 4 mics per minute 9. Hypotension: Continue pressors keep MAP 65 and above Plan: GI and DVT prophylaxis in place PDMP PDMP Reviewed: Last Reviewed 05/27/25 22:02 by Ebony June MD Attestations 2 Medical Necessity Statement*: Patient cannot be discharged at this time critically ill but stable awaiting bed placement at a higher institution of care at [facility] Coding Level of Care Code 12259 Diagnoses Hypoglycemia E16.2 Pneumonia J18.9 Sepsis A41.9 Acute kidney injury N17.9 Ascites R18.8 Elevated liver enzymes R74.8 Hypokalemia E87.6 Hepatorenal syndrome K76.7 Hypotension I95.9
--- NOTE | 2025-05-29 16:39 | PC.NURSE ---
Pt refuses repeatedly to get out of bed to chair. He did take the midodrine at this time
[2025-05-29] MEDS: norepinephrine 4 MG/250 ML BAG 11.25 MG IV (21:32)
[2025-05-30] VITALS (77 sets, daily range): BP systolic 79–124; BP diastolic 47–87; PULSE 54–104; RESP 12–36; TEMP -12.6–36.4; O2SAT 92–99
[2025-05-30] MEDS: piperacillin-tazobactam 3.375 GM in sodium chloride 0.9% (plus) 50 ML IV ×3 (03:47→21:20)
[2025-05-30] MEDS: albumin 25 G/100 ML BAG 60 G IV ×3 (05:24→21:32)
[2025-05-30 06:04] LABS: ANCA Screen NEGATIVE (NEGATIVE)
--- NOTE | 2025-05-30 07:34 | US_ITS ---
WS: [id number] INDICATION: Ascites TECHNIQUE: Ultrasound abdomen limited US/US abdomen lmt fluid [id number] IMPRESSION: Mild perihepatic and perisplenic ascites. Insufficient fluid for sa fe paracentesis
[2025-05-30 09:42] LABS: INR 2.39 (0.8-1.2); Prothrombin Time 27.50 SECONDS (12.1-14.9)
[2025-05-30 09:43] LABS: Partial Thromboplastin Time 51.3 SECONDS (23.9-36.7)
--- NOTE | 2025-05-30 09:55 | PC.SOCIAL ---
IMM Updated Updated pt on IMM. No questions voiced. Provided pt a copy. Initialed, dated, & timed a copy & placed in chart.
--- NOTE | 2025-05-30 10:50 | PC.NURSE ---
Pt to MRI and back to Bed.
[2025-05-30 12:44] LABS: ALPHA 1 GLOBULIN 0.2 g/dL (0.2-0.3); ALPHA 2 GLOBULIN 0.3 g/dL (0.5-0.9); BETA 1 GLOBULIN 0.2 g/dL (0.4-0.6); BETA 2 GLOBULIN 0.4 g/dL (0.2-0.5)
--- NOTE | 2025-05-30 16:35 | P.PN_ITS ---
Subjective 2 Subjective: no new c/o Medications: Reviewed: Yes Vitals/I&O/Wt Last Vital Signs Temp 9.4 F L 05/30/25 13:45 Pulse 72 05/30/25 15:56 Resp 15 05/30/25 15:56 BP 108/76 05/30/25 15:56 Pulse Ox 95 05/30/25 14:45 O2 Del Method Room Air 05/30/25 14:45 O2 Flow Rate 2 05/26/25 04:15 05/30/25 05/30/25 05/30/25 06:59 14:59 22:59 Intake Total 222.75 / 1772.750 585.375 / 585.375 100 / 685.375 Output Total 300 / 600 Balance -77.25 / 1172.750 585.375 / 585.375 100 / 685.375 Weight last 48 hrs Weight 93.5 kg Weight 95.3 kg Physical Exam 2 Narrative: Patient is awake alert, no distress, on room air Jaundiced sclera S1-S2 regular rate and rhythm per report Lungs clear with decreased breath sounds bilaterally per report Abdomen soft nontender per report Has been pedal edema Urinary Catheter Management: Holt: Cath Placed During This Visit: yes Reason for Continuing Indwelling Catheter: Accurate Measurement of Urinary Output in Critically Ill Patients Urinary Catheter Date of Insertion: 05/25/25 Urinary Catheter Time of Insertion: 12:00 Data 05/29/25 08:15 05/31/25 10:49 Micro: Microbiology 05/25/25 06:29 Blood Culture - Final Blood 05/30/25 09:06 Blood Culture - Preliminary Blood SPECIMEN COLLECTED 05/30/25 09:08 Blood Culture - Preliminary Blood SPECIMEN COLLECTED 05/25/25 06:53 Blood Culture - Final Blood NO GROWTH AFTER 5 DAYS A&P Assessment and plan 1. Acute kidney injury: Plan: 1. Acute kidney injury: Baseline creatinine was 1.0 in December 2024. Now has STEPHAN with a creatinine of 1.7-likely prerenal in the background history of liver cirrhosis. HRS is possible. added IV albumin and midodrine. Cr stable GN unlikely but will check serologies-pending -Noted normal CK levels, UA with trace protein and no blood -Renal ultrasound noted, no obstruction - No indication for dialysis. 2. Liver cirrhosis: awaiting tranfer for further w/u 3. Hyponatremia:, Likely hypovolemic, monitor 4. Hypokalemia, repleted 5. Anemia 6. History of coronary artery disease with stents Patient evaluated his evaluation. 40 minutes. PDMP PDMP Reviewed: Not Reviewed Attestations 2 Medical Necessity Statement*: per josué Coding Level of Care Code Acute Code for Chg Fwd Diagnoses Acute kidney injury N17.9
--- NOTE | 2025-05-30 16:49 | MR_ITS ---
WS: [id number] MRI/MRCP OF THE ABDOMEN WITHOUT GADOLINIUM ENHANCEMENT TECHNIQUE: Coronal T2 Fase BH, Axial T2 Fase BH, Axial T2 FS BH, Zxial 3D Guardado BH, Axial DWI BH, 2D MRCP Radial BH, 3D MRCP (Resp), and Axial 3D Dyn BH Post sequences. CLINICAL INFORMATION: eval gb,elevated bilirubin FINDINGS: Very limited examination due to significant patient motion and respiratory artifact. A few small calculi in the gallbladder. The previously described gallbladder wall thickening seen on the ultrasound is not apparent on this study. Gallbladder appears normal size with a thin wall. There is perihepatic and perisplenic ascites and ascites in the pelvis. Ascites extends into the gallbladder fossa. No intrahepatic biliary ductal dilatation. Common bile duct is not well evaluated due to extensive artifact. Although no intrahepatic biliary ductal dilatation. Moderate bilateral pleural effusions with compressive atelectasis in the lung base. Diffuse body wall anasarca. Small esophageal hiatal hernia. Hepatic granulomas. Cirrhotic liver with evidence of portal hypertension. Pancreas not well evaluated. Normal caliber upper abdominal aorta. Adrenal glands appear normal. No hydronephrosis. MR/MR MRCP [id number] Impression: Very limited diagnostic examination due to significant patient daniele on and respiratory artifact 1. Few small gallbladder calculi. No significant gallbladder wall thickening o n this study. Gallbladder is nondistended and appear normal size with thin wall . 2. Advanced liver cirrhosis with evidence of portal venous hypertension. 3. Perihepatic and perisplenic ascites. Ascites in the pelvis. 4. Moderate bilateral pleural effusions with compressive atelectasis in the marly ng bases. 5. Diffuse body wall anasarca. 6. Common bile duct cannot be evaluated due to significant artifact however no intrahepatic biliary ductal dilatation visualized.
--- NOTE | 2025-05-30 19:41 | PC.NURSE ---
Shift summary: Pt agreed reluctantly to get of bed to chair this am. Moderated amount of strength utilizing the walker. MRCP completed this am, then pt assisted back to his bed around 1100. He has rested in bed since. His appetite is poor. He only eats a few bites each meal. His blood sugars were in the 70's today. He denied dizziness. He remains jaundiced with anasarca. Pitting edema on his hips and lower abdomen. Bilat arms are covered in bruises. His skin is fragile, removing vena-guards or tape can and has caused skin tears this stay. he has multiple skin tears and a ulcer on his bottom. He is on levophed again at 2mcg/min. He was able to tolerate Levophed being off this am for a little more than 2 hours. He is still receiving albumin and Zosyn IV. He is on midodrine PO. Urinary output poor this shift, 50 ml. It is orange in color.
--- NOTE | 2025-05-30 20:08 | P.PN_ITS ---
Subjective 2 Subjective: Patient is for the first time sitting up in the chair today and that was good. Paracentesis canceled today because there was not much ascites fluid to tap. Vitals/I&O/Wt Last Vital Signs Temp 9.4 F L 05/30/25 13:45 Pulse 73 05/30/25 19:00 Resp 19 H 05/30/25 19:30 BP 107/58 05/30/25 19:30 Pulse Ox 97 05/30/25 19:30 O2 Del Method Room Air 05/30/25 19:30 O2 Flow Rate 2 05/26/25 04:15 05/30/25 05/30/25 05/30/25 06:59 14:59 22:59 Intake Total 222.75 / 1772.750 585.375 / 585.375 400 / 985.375 Output Total 300 / 600 50 / 50 Balance -77.25 / 1172.750 585.375 / 585.375 350 / 935.375 Weight last 48 hrs Weight 93.5 kg Weight 95.3 kg Physical Exam 2 Narrative: Patient is ill-appearing and weak HEENT normocephalic atraumatic neck neck is supple cardiovascular heart rate is regular lungs are pretty much clear abdomen soft nontender nondistended unremarkable extremities are intact no edema has good pulses neurology no focality patient able to follow commands and pretty much cognitively intact Urinary Catheter Management: Holt: Cath Placed During This Visit: yes Reason for Continuing Indwelling Catheter: Accurate Measurement of Urinary Output in Critically Ill Patients Urinary Catheter Date of Insertion: 05/25/25 Urinary Catheter Time of Insertion: 12:00 Data 05/29/25 08:15 05/29/25 08:15 Micro: Microbiology 05/25/25 06:29 Blood Culture - Final Blood 05/30/25 09:06 Blood Culture - Preliminary Blood SPECIMEN COLLECTED 05/30/25 09:08 Blood Culture - Preliminary Blood SPECIMEN COLLECTED 05/25/25 06:53 Blood Culture - Final Blood NO GROWTH AFTER 5 DAYS A&P Assessment and plan 1. Pneumonia: Treated. Patient is doing better but still very weak have been off of the Levophed today and maintaining good blood pressure and a good MAP on rounds Continue current care If patient continues to improve and do not have any event another goal is to follow through with outpatient PT OT while awaiting for an outpatient hepatology appointment with once all appointment should be made before patient discharges if that will happen 2. Sepsis: Sepsis on from pneumonia also resolving Patient getting weaned off of Levophed pressor Continue to titrate and optimize 3. Acute kidney injury: Patient is very dry and did not put on any urine today only 50 cc for a shift I will initiate just a gentle rehydration for just 1 L at 75 cc an hour cautious for any fluid overload. Must continue to monitor 4. Ascites: The presumed ascites was not enough to be tapped today I sent patient for ultrasound-guided paracentesis there were no fluid enough to tap and the paracentesis was then canceled along with all orders test that I had ordered 5. Elevated liver enzymes: Liver enzymes are stable but coagulation studies say different patient INR it has been around 3 Must continue to follow through and monitor 6. Hypotension: Patient is off Levophed today #1 will monitor closely must keep mean 65 and above for this will help with renal perfusion 7. Liver cirrhosis: This is the hallmarks of the illness liver cirrhosis patient will need lean facilitator as a transfer or outpatient will continue to follow through and monitor If Ramires calls for the patient anytime patient will go as a transfer to [facility] that had accepted him. Bed is pending Plan: GI and DVT prophylaxis in place PDMP PDMP Reviewed: Last Reviewed 05/27/25 22:02 by Ebony June MD Attestations 2 Medical Necessity Statement*: Patient still critically ill but stable will need ongoing care to support and optimize patient complex medical presentation Coding Level of Care Code 41118 Diagnoses Pneumonia J18.9 Sepsis A41.9 Acute kidney injury N17.9 Ascites R18.8 Elevated liver enzymes R74.8 Hypotension I95.9 Liver cirrhosis K74.60 Time Spent (min) 50
[2025-05-31] VITALS (93 sets, daily range): BP systolic 81–147; BP diastolic 39–121; PULSE 63–131; RESP 11–26; TEMP 36.2–37.6; O2SAT 92–98
[2025-05-31] MEDS: piperacillin-tazobactam 3.375 GM in sodium chloride 0.9% (plus) 50 ML IV ×3 (04:31→21:02)
[2025-05-31] MEDS: albumin 25 G/100 ML BAG 60 G IV (05:15)
[2025-05-31 11:42] LABS: Alanine Aminotransferase 111 U/L (0-41); Albumin Level 3.8 g/dL (3.5-5.2); Alkaline Phosphatase 95 U/L (40-130); Anion Gap 17.4 (5-19); Aspartate Amino Transferase 135 U/L (0-40); Blood Urea Nitrogen 19 mg/dL (8-23); Calcium 8.8 mg/dL (8.5-10.5); Carbon Dioxide 23 mmol/L (22-29); Chloride 104 mmol/L (98-107); Creatinine Clr Calc Pharmacy 59.8510; Globulin 1.5 g/dL (1.3-4.6); Glucose 79 mg/dL (65-115); Osmolality Calculated 293 mOsm/kg (285-295); Potassium 3.4 mmol/L (3.5-5.1); Sodium 141 mmol/L (136-145); Total Protein 5.3 g/dL (6.6-8.7)
[2025-05-31] MEDS: norepinephrine 4 MG/250 ML BAG 3.75 MG IV (13:14)
[2025-05-31] MEDS: albumin 12.5 G/50 ML VIAL IV ×2 (14:29→22:14)
--- NOTE | 2025-05-31 14:53 | P.PN_ITS ---
Subjective 2 Subjective: s/p MRCP yesterday awaiting bed @ [place] Medications: Reviewed: Yes Vitals/I&O/Wt Last Vital Signs Temp 99.6 F 05/31/25 12:45 Pulse 76 05/31/25 14:15 Resp 20 H 05/31/25 14:15 BP 81/39 05/31/25 14:15 Pulse Ox 98 05/31/25 09:15 O2 Del Method Room Air 05/31/25 09:15 O2 Flow Rate 2 05/26/25 04:15 05/30/25 05/31/25 05/31/25 22:59 06:59 14:59 Intake Total 420 / 1005.375 346 / 1351.375 544.25 / 544.25 Output Total 50 / 50 250 / 300 250 / 250 Balance 370 / 955.375 96 / 1051.375 294.25 / 294.25 Weight last 48 hrs Weight 95.799 kg Weight 93.5 kg Physical Exam 2 Narrative: Patient is awake alert, no distress, on room air Jaundiced sclera S1-S2 regular rate and rhythm per report Lungs clear with decreased breath sounds bilaterally per report Abdomen soft nontender per report Has been pedal edema Urinary Catheter Management: Holt: Cath Placed During This Visit: yes Reason for Continuing Indwelling Catheter: Accurate Measurement of Urinary Output in Critically Ill Patients Urinary Catheter Date of Insertion: 05/25/25 Urinary Catheter Time of Insertion: 12:00 Data 05/29/25 08:15 05/31/25 10:49 Micro: Microbiology 05/30/25 09:08 Blood Culture - Preliminary Blood NEGATIVE TO DATE 05/30/25 09:06 Blood Culture - Preliminary Blood NEGATIVE TO DATE 05/25/25 06:29 Blood Culture - Final Blood A&P Assessment and plan 1. Acute kidney injury: Plan: 1. Acute kidney injury: Baseline creatinine was 1.0 in December 2024. Now has STEPHAN with a creatinine of 1.7-likely prerenal in the background history of liver cirrhosis. HRS is possible. added IV albumin and midodrine. Cr stable GN unlikely but will check serologies-pending -Noted normal CK levels, UA with trace protein and no blood -Renal ultrasound noted, no obstruction - No indication for dialysis. 2. Liver cirrhosis: awaiting tranfer for further w/u 3. Hyponatremia:, Likely hypovolemic, monitor 4. Hypokalemia, repleted 5. Anemia 6. History of coronary artery disease with stents Patient evaluated his evaluation. 40 minutes. PDMP PDMP Reviewed: Not Reviewed Attestations 2 Medical Necessity Statement*: per [facility] Coding Level of Care Code Acute Code for [facility] Fwd Diagnoses Acute kidney injury N17.9
--- NOTE | 2025-05-31 18:31 | P.PN_ITS ---
Subjective 2 Subjective: Patient not complaining of much bed lying in bed did got up to chair yesterday but did not want to because of much debility Vitals/I&O/Wt Last Vital Signs Temp 99.6 F 05/31/25 12:45 Pulse 75 05/31/25 16:15 Resp 15 05/31/25 16:15 BP 112/73 05/31/25 16:15 Pulse Ox 96 05/31/25 16:15 O2 Del Method Room Air 05/31/25 16:15 O2 Flow Rate 2 05/26/25 04:15 05/31/25 05/31/25 05/31/25 06:59 14:59 22:59 Intake Total 346 / 1351.375 544.25 / 544.25 150 / 694.25 Output Total 250 / 300 250 / 250 Balance 96 / 1051.375 294.25 / 294.25 150 / 444.25 Weight last 48 hrs Weight 95.799 kg Weight 93.5 kg Physical Exam 2 Narrative: Generally patient is ill-appearing jaundiced with end-stage liver disease with liver cirrhosis Patient had been treated and still going through treatment of pneumonia and the urinary source infection but has stayed persistently hypotensive in the setting of antibiotics and pressor. Will drop blood cultures to 2 peripheral sites and 2 sets from PICC line and will start IV antifungal medication at 10:00 PM HEENT normocephalic/atraumatic pupils are anicteric. Neck neck is supple cardiovascular heart rate is regular lungs are pretty much clear abdomen soft nontender nondistended unremarkable extremities are intact no edema has good pulses neurology has no focality lab studies lab studies reviewed and noted. Urinary Catheter Management: Holt: Cath Placed During This Visit: yes Reason for Continuing Indwelling Catheter: Accurate Measurement of Urinary Output in Critically Ill Patients Urinary Catheter Date of Insertion: 05/25/25 Urinary Catheter Time of Insertion: 12:00 Data 05/29/25 08:15 05/31/25 10:49 Micro: Microbiology 05/30/25 09:08 Blood Culture - Preliminary Blood NEGATIVE TO DATE 05/30/25 09:06 Blood Culture - Preliminary Blood NEGATIVE TO DATE 05/25/25 06:29 Blood Culture - Final Blood A&P Assessment and plan 1. Pneumonia: 2. Sepsis: 3. Ascites: 4. Elevated liver enzymes: 5. Hypotension: Plan: 1. Resistant hypotension on pressor and on antibiotics: Patient is off Levophed 11/30/2024 but went into severe hypotension later on on the same day. Patient is back on Levophed Must investigate for fungal anemia will obtain blood culture specifically for fungal infection of the blood And regardless will need to initiate antifungal for the blood for Diflucan will not touch this 2. Pneumonia: Treated. Patient is doing better but still very weak have been off of the Levophed today and maintaining good blood pressure and a good MAP on rounds Continue current care If patient continues to improve and do not have any event another goal is to follow through with outpatient PT OT while awaiting for an outpatient hepatology appointment with once all appointment should be made before patient discharges if that will happen 3. Sepsis: Sepsis on from pneumonia also resolving Patient getting weaned off of Levophed pressor Continue to titrate and optimize 4. Acute kidney injury: Patient is very dry and did not put on any urine today only 50 cc for a shift I will initiate just a gentle rehydration for just 1 L at 75 cc an hour cautious for any fluid overload. Must continue to monitor 5. Ascites: The presumed ascites was not enough to be tapped today I sent patient for ultrasound-guided paracentesis there were no fluid enough to tap and the paracentesis was then canceled along with all orders test that I had ordered 6. Elevated liver enzymes: Liver enzymes are stable but coagulation studies say different patient INR it has been around 3 Must continue to follow through and monitor 7. Liver cirrhosis: This is the hallmarks of the illness liver cirrhosis patient will need farm field manager as a transfer or outpatient will continue to follow through and monitor If Ramires calls for the patient anytime patient will go as a transfer to [facility] that had accepted him. Bed is pending PDMP PDMP Reviewed: Last Reviewed 05/27/25 22:02 by Ebony June MD Attestations 2 Medical Necessity Statement*: Patient is back on Levophed because of persistent hypotension will follow-up with fungal culture and the blood will need some couple of days to continue to optimize care and once bed is available in a higher institution patient will be transferred. Coding Level of Care Code 78446 Diagnoses Pneumonia J18.9 Sepsis A41.9 Ascites R18.8 Elevated liver enzymes R74.8 Hypotension I95.9 Time Spent (min) 30
[2025-05-31] MEDS: micafungin 100 MG in sodium chloride 0.9% (plus) 100 ML IV (22:15)
[2025-06-01] VITALS (97 sets, daily range): BP systolic 77–117; BP diastolic 32–83; PULSE 67–128; RESP 12–26; TEMP 36.5–36.7; O2SAT 85–98
[2025-06-01] MEDS: piperacillin-tazobactam 3.375 GM in sodium chloride 0.9% (plus) 50 ML IV ×3 (03:47→21:22)
[2025-06-01] MEDS: albumin 12.5 G/50 ML VIAL IV ×3 (06:04→21:27)
--- NOTE | 2025-06-01 09:18 | PC.SOCIAL ---
IMM Updated Updated pt's on IMM. No questions voiced. Provided pt a copy. Initialed, dated, & timed copy in chart.
[2025-06-01] MEDS: potassium chloride oral liq 20 mEq/15 mL UDC 40 MEQ PO (09:36)
--- NOTE | 2025-06-01 12:48 | PC.NURSE ---
Patient continues to refuse to be turned, get out of bed, or eat. Notified Dr. June. Dr. June states to call her when PT gets to the unit to get him OOB. Educated patient and on importance of getting out of bed and eating. Patient states I just want to be left alone and sleep .
--- NOTE | 2025-06-01 13:26 | PC.NURSE ---
Edgar from PT at bedside, talked with patient about getting out of bed to chair. Patient states No, I appreciate you wanting to help me but I dont want to get out of bed, I just want to sleep. Notified Dr. June that PT is at bedside.
--- NOTE | 2025-06-01 13:32 | PM.PN ---
Subjective Subjective: no new c/o Medications: Reviewed: Yes Vitals/I&O/Wt Last Vital Signs Temp 98.0 F 06/01/25 12:00 Pulse 67 06/01/25 13:15 Resp 14 06/01/25 13:15 BP 94/52 06/01/25 13:15 Pulse Ox 92 06/01/25 13:15 O2 Del Method Room Air 06/01/25 12:00 O2 Flow Rate 2 05/26/25 04:15 05/31/25 06/01/25 06/01/25 22:59 06:59 14:59 Intake Total 386 / 930.25 324.25 / 1254.50 519.062 / 519.062 Output Total 125 / 375 350 / 725 Balance 261 / 555.25 -25.75 / 529.50 519.062 / 519.062 Weight last 48 hrs Weight 97.296 kg Weight 95.799 kg Physical Exam Narrative: Patient is awake alert, no distress, on room air Jaundiced sclera S1-S2 regular rate and rhythm per report Lungs clear with decreased breath sounds bilaterally per report Abdomen soft nontender per report Has been pedal edema Urinary Catheter Management: Holt: Cath Placed During This Visit: yes Reason for Continuing Indwelling Catheter: Accurate Measurement of Urinary Output in Critically Ill Patients Urinary Catheter Date of Insertion: 05/25/25 Urinary Catheter Time of Insertion: 12:00 Data 05/29/25 08:15 05/31/25 10:49 Micro: Microbiology 05/30/25 09:08 Blood Culture - Preliminary Blood NEGATIVE TO DATE 05/30/25 09:06 Blood Culture - Preliminary Blood NEGATIVE TO DATE A&P Assessment and plan 1. Acute kidney injury: Plan: 1. Acute kidney injury: Baseline creatinine was 1.0 in December 2024. Now has STEPHAN with a creatinine of 1.7-likely prerenal in the background history of liver cirrhosis. HRS is possible. added IV albumin and midodrine. Cr stable , bmp pending today GN unlikely but will check serologies-pending -Noted normal CK levels, UA with trace protein and no blood -Renal ultrasound noted, no obstruction - No indication for dialysis. 2. Liver cirrhosis: awaiting tranfer for further w/u 3. Hyponatremia:, Likely hypovolemic, monitor 4. Hypokalemia, repleted 5. Anemia 6. History of coronary artery disease with stents Patient evaluated his evaluation. 40 minutes. PDMP PDMP Reviewed: Not Reviewed Attestations Medical Necessity Statement*: per medicine Coding Level of Care Code Acute Code for [facility] Fwd Diagnoses Acute kidney injury N17.9
--- NOTE | 2025-06-01 13:58 | PC.NURSE ---
Dr. June to bedside to speak with patient and . asked patient if he wanted to get better, patient states yes and explained to patient that he needed to start getting out of bed and eating. And tells patient to get out of bed. Patient gets angry but states that he would get out of bed. Patient assisted to chair with Edgar from PT. Tolerated well.
--- NOTE | 2025-06-01 14:52 | P.PN_ITS ---
Subjective 2 Subjective: Patient was actually talked into getting out of bed does not want to move but finally got out of bed and sat on the chair at about 1 PM Vitals/I&O/Wt Last Vital Signs Temp 98.0 F 06/01/25 12:00 Pulse 81 06/01/25 14:00 Resp 19 H 06/01/25 14:00 BP 94/53 06/01/25 14:00 Pulse Ox 93 06/01/25 14:00 O2 Del Method Room Air 06/01/25 14:00 O2 Flow Rate 2 05/26/25 04:15 05/31/25 06/01/25 06/01/25 22:59 06:59 14:59 Intake Total 386 / 930.25 324.25 / 1254.50 519.062 / 519.062 Output Total 125 / 375 350 / 725 Balance 261 / 555.25 -25.75 / 529.50 519.062 / 519.062 Weight last 48 hrs Weight 97.296 kg Weight 95.799 kg Physical Exam 2 Narrative: Patient is doing well practically got out of bed with a lot of assistance sitting in the Eli chair. HEENT normocephalic atraumatic neck neck is supple cardiovascular heart is regular lungs are pretty much clear abdomen soft nontender nondistended unremarkable extremities are intact no edema has good pulses neurology has no focality lab studies lab studies reviewed and noted. Urinary Catheter Management: Holt: Cath Placed During This Visit: yes Reason for Continuing Indwelling Catheter: Accurate Measurement of Urinary Output in Critically Ill Patients Urinary Catheter Date of Insertion: 05/25/25 Urinary Catheter Time of Insertion: 12:00 Data 05/29/25 08:15 05/31/25 10:49 A&P Assessment and plan 1. Pneumonia: 2. Sepsis: 3. Acute kidney injury: 4. Ascites: 5. Elevated liver enzymes: 6. Hypotension: 7. Liver cirrhosis: Plan: 1.Resistant hypotension on pressor and on antibiotics: Patient is off Levophed 11/30/2024 but went into severe hypotension later on on the same day. Patient is back on Levophed to 1 mics per minute yesterday and now increased to 2 mics per minute this afternoon Must investigate for fungenemia will obtain blood culture specifically for fungal infection of the blood And regardless will need to initiate antifungal for the blood for Diflucan will not touch this Blood fungal culture takes about 3 to 4 days that was told by microbiology.. Patient remained afebrile doing okay but with persistent hypotension on pressor and on antibiotics 2. Pneumonia: Must encourage patient to get out of bed I had to come down to the unit he said cannot talk time to get the patient to cooperate for the physical therapy to get him out of bed Treated. Patient is doing better but still very weak have been off of the Levophed today and maintaining good blood pressure and a good MAP on rounds Continue current care If patient continues to improve and do not have any event another goal is to follow through with outpatient PT OT while awaiting for an outpatient hepatology appointment with once all appointment should be made before patient discharges if that will happen 3. Sepsis: Sepsis on from pneumonia also resolving Patient getting weaned off of Levophed pressor Continue to titrate and optimize 4. Acute kidney injury: Patient is very dry and did not put on any urine today only 50 cc for a shift I will initiate just a gentle rehydration for just 1 L at 75 cc an hour cautious for any fluid overload. Must continue to monitor 5. Ascites: The presumed ascites was not enough to be tapped today I sent patient for ultrasound-guided paracentesis there were no fluid enough to tap and the paracentesis was then canceled along with all orders test that I had ordered 6. Elevated liver enzymes: Liver enzymes are stable but coagulation studies say different patient INR it has been around 3 Must continue to follow through and monitor 7. Liver cirrhosis: Patient is coagulopathic with stable with the coagulation studies. This is the hallmarks of the illness liver cirrhosis patient will need night time babysitter as a transfer or outpatient will continue to follow through and monitor If Ramires calls for the patient anytime patient will go as a transfer to [facility] that had accepted him. Bed is pending PDMP PDMP Reviewed: Last Reviewed 05/27/25 22:02 by Ebony June MD Attestations 2 Medical Necessity Statement*: Patient does require a couple of days more in house because patient is on Levophed and anytime patient is weaned down the blood pressure crashes to low level with MAP in the 40s to 50s patient is on pressor Levophed at this time is on 2 mics but once we get 1 pawan patient blood pressure goes down again. Will continue to need inpatient care. Coding Level of Care Code 82446 Diagnoses Pneumonia J18.9 Sepsis A41.9 Acute kidney injury N17.9 Ascites R18.8 Elevated liver enzymes R74.8 Hypotension I95.9 Liver cirrhosis K74.60 Time Spent (min) 35
--- NOTE | 2025-06-01 16:10 | PC.NURSE ---
Returned to bed with assistance from occupational therapy. Tolerated well, bath given with wipes and gown changed.
[2025-06-01] MEDS: micafungin 100 MG in sodium chloride 0.9% (plus) 100 ML IV (21:35)
[2025-06-02] VITALS (52 sets, daily range): BP systolic 82–112; BP diastolic 45–80; PULSE 65–97; RESP 14–28; TEMP 36.4–37.1; O2SAT 90–98
[2025-06-02] MEDS: albumin 12.5 G/50 ML VIAL IV ×3 (05:24→21:30)
[2025-06-02] MEDS: piperacillin-tazobactam 3.375 GM in sodium chloride 0.9% (plus) 50 ML IV ×3 (05:24→21:26)
--- NOTE | 2025-06-02 13:26 | PC.NURSE ---
1100 -- Assisted to BSC and then to chair at bedside. Tolerated well. 1325 -- Returned to bed, tolerated well.
--- NOTE | 2025-06-02 19:56 | P.PN_ITS ---
Subjective 2 Subjective: no new c/o Medications: Reviewed: Yes Vitals/I&O/Wt Last Vital Signs Temp 97.7 F 06/02/25 16:00 Pulse 71 06/02/25 18:00 Resp 23 H 06/02/25 18:00 BP 89/47 06/02/25 18:00 Pulse Ox 96 06/02/25 18:00 O2 Del Method Room Air 06/02/25 18:00 O2 Flow Rate 2 05/26/25 04:15 06/02/25 06/02/25 06/02/25 06:59 14:59 22:59 Intake Total 255.313 / 1001.875 600 / 600 450 / 1050 Output Total 300 / 600 275 / 275 Balance -44.687 / 401.875 600 / 600 175 / 775 Weight last 48 hrs Weight 97.795 kg Weight 97.296 kg Physical Exam 2 Narrative: Patient is awake alert, no distress, on room air Jaundiced sclera S1-S2 regular rate and rhythm per report Lungs clear with decreased breath sounds bilaterally per report Abdomen soft nontender per report Has been pedal edema Urinary Catheter Management: Holt: Cath Placed During This Visit: yes Reason for Continuing Indwelling Catheter: Accurate Measurement of Urinary Output in Critically Ill Patients Urinary Catheter Date of Insertion: 05/25/25 Urinary Catheter Time of Insertion: 12:00 Data 05/29/25 08:15 05/31/25 10:49 Micro: Microbiology 05/28/25 11:15 Blood Culture - Final Blood NO GROWTH AFTER 5 DAYS 05/28/25 11:11 Blood Culture - Final Blood NO GROWTH AFTER 5 DAYS A&P Assessment and plan 1. Acute kidney injury: Plan: 1. Acute kidney injury: Baseline creatinine was 1.0 in December 2024. Now has STEPHAN with a creatinine of 1.7-likely prerenal in the background history of liver cirrhosis. HRS is possible. added IV albumin and midodrine. Cr stable , off levophed GN unlikely but will check serologies-pending -Noted normal CK levels, UA with trace protein and no blood -Renal ultrasound noted, no obstruction - No indication for dialysis. 2. Liver cirrhosis: awaiting tranfer for further w/u 3. Hyponatremia:, Likely hypovolemic, monitor 4. Hypokalemia, repleted 5. Anemia 6. History of coronary artery disease with stents Patient evaluated his evaluation. 40 minutes. PDMP PDMP Reviewed: Not Reviewed Attestations 2 Medical Necessity Statement*: per [facility] Coding Level of Care Code Acute Code for [facility] Fwd Diagnoses Acute kidney injury N17.9
[2025-06-02] MEDS: micafungin 100 MG in sodium chloride 0.9% (plus) 100 ML IV (21:34)
[2025-06-03] VITALS (51 sets, daily range): BP systolic 76–115; BP diastolic 37–85; PULSE 70–91; RESP 14–32; TEMP 36.3–36.8; O2SAT 81–100
[2025-06-03] MEDS: piperacillin-tazobactam 3.375 GM in sodium chloride 0.9% (plus) 50 ML IV ×3 (05:18→21:21)
[2025-06-03] MEDS: albumin 12.5 G/50 ML VIAL IV ×3 (05:18→21:23)
--- NOTE | 2025-06-03 11:40 | P.PN_ITS ---
Subjective 2 Subjective: no new complaints Medications: Reviewed: Yes Vitals/I&O/Wt Last Vital Signs Temp 97.3 F L 06/03/25 08:00 Pulse 72 06/03/25 10:00 Resp 14 06/03/25 10:00 BP 94/66 06/03/25 10:00 Pulse Ox 95 06/03/25 10:00 O2 Del Method Room Air 06/03/25 10:00 O2 Flow Rate 2 05/26/25 04:15 06/02/25 06/03/25 06/03/25 22:59 06:59 14:59 Intake Total 550 / 1150 150 / 1300 275 / 275 Output Total 275 / 275 300 / 575 Balance 275 / 875 -150 / 725 275 / 275 Weight last 48 hrs Weight 96.797 kg Weight 97.795 kg Physical Exam 2 Narrative: Patient is awake alert, no distress, on room air Jaundiced sclera S1-S2 regular rate and rhythm per report Lungs clear with decreased breath sounds bilaterally per report Abdomen soft nontender per report Has been pedal edema Urinary Catheter Management: Holt: Cath Placed During This Visit: yes Reason for Continuing Indwelling Catheter: Accurate Measurement of Urinary Output in Critically Ill Patients Urinary Catheter Date of Insertion: 05/25/25 Urinary Catheter Time of Insertion: 12:00 Data 05/29/25 08:15 05/31/25 10:49 Micro: Microbiology 05/28/25 11:15 Blood Culture - Final Blood NO GROWTH AFTER 5 DAYS 05/28/25 11:11 Blood Culture - Final Blood NO GROWTH AFTER 5 DAYS A&P Assessment and plan 1. Acute kidney injury: Plan: 1. Acute kidney injury: Baseline creatinine was 1.0 in December 2024. Now has STEPHAN with a creatinine of 1.7-likely prerenal in the background history of liver cirrhosis. HRS is possible. added IV albumin and midodrine. Cr stable , off levophed BMP pendi ng GN unlikely but will check serologies-pending -Noted normal CK levels, UA with trace protein and no blood -Renal ultrasound noted, no obstruction - No indication for dialysis. 2. Liver cirrhosis: awaiting tranfer for further w/u 3. Hyponatremia:, Likely hypovolemic, monitor 4. Hypokalemia, repleted 5. Anemia 6. History of coronary artery disease with stents Patient evaluated his evaluation. 40 minutes. PDMP PDMP Reviewed: Not Reviewed Attestations 2 Medical Necessity Statement*: per medicine Coding Level of Care Code Acute Code for [facility] Fwd Diagnoses Acute kidney injury N17.9
[2025-06-03 12:50] LABS: Anion Gap 17.3 (5-19); Blood Urea Nitrogen 23 mg/dL (8-23); Calcium 9.6 mg/dL (8.5-10.5); Carbon Dioxide 22 mmol/L (22-29); Chloride 105 mmol/L (98-107); Creatinine Clr Calc Pharmacy 65.1435; Glucose 111 mg/dL (65-115); Osmolality Calculated 296 mOsm/kg (285-295); Potassium 3.3 mmol/L (3.5-5.1); Sodium 141 mmol/L (136-145)
--- NOTE | 2025-06-03 18:30 | P.PN_ITS ---
Subjective 2 Subjective: He has been significant interval improvement in patient clinical status. Patient is a little more active with an assistance of getting out of bed to chair and also acute renal failure resolved and had been off of Levophed the last 2 days. Patient is not downgraded from ICU to stepdown unit. Patient will go to stepdown unit when bed is available. Follow-up on fungal culture patient has started micafungin antifungal medication IV on 06/01/2025 and this marked the resolution of hypotension. Vitals/I&O/Wt Last Vital Signs Temp 97.8 F 06/03/25 16:00 Pulse 76 06/03/25 16:00 Resp 22 H 06/03/25 16:00 BP 108/71 06/03/25 16:00 Pulse Ox 100 06/03/25 16:00 O2 Del Method Nasal Cannula 06/03/25 16:00 O2 Flow Rate 3 06/03/25 16:00 06/03/25 06/03/25 06/03/25 06:59 14:59 22:59 Intake Total 150 / 1300 575 / 575 200 / 775 Output Total 300 / 575 325 / 325 Balance -150 / 725 575 / 575 -125 / 450 Weight last 48 hrs Weight 96.797 kg Weight 97.795 kg Physical Exam 2 Narrative: Generally patient looks better in the last 2 days HEENT normocephalic/atraumatic neck neck is supple cardiovascular heart rate is regular lungs are pretty much clear abdomen soft nontender nondistended unremarkable extremities are intact no edema has good pulses neurology has no focality lab studies lab studies reviewed and noted. Urinary Catheter Management: Holt: Cath Placed During This Visit: yes Reason for Continuing Indwelling Catheter: Accurate Measurement of Urinary Output in Critically Ill Patients Urinary Catheter Date of Insertion: 05/25/25 Urinary Catheter Time of Insertion: 12:00 Data 05/29/25 08:15 06/03/25 12:20 A&P Assessment and plan 1. Hypoglycemia: 2. Pneumonia: 3. Sepsis: 4. Acute kidney injury: 5. Ascites: 6. Elevated liver enzymes: 7. Hypokalemia: 8. Hepatorenal syndrome: 9. Hypotension: 10. Anemia: 11. History of coronary artery disease: 12. Portal hypertension: 13. Splenomegaly: Plan: 1.Resistant hypotension on pressor and on antibiotics: -Resolved with no hypotension off of pressor for 2 days since 12/02/2024 and is stable marked today I started antifungal mycofugin and they should be on for 2 weeks. Must continue this. Follow-up on fungal culture which should be available in another day or 2. Patient has been downgraded to lower level of care at [facility] since off of pressor. Must investigate for fungenemia I had obtained fungal blood culture 2 days ago, please follow-up on this And regardless will need to initiate antifungal for the blood funguenemia Blood fungal culture takes about 3 to 4 days per day microbiology team.. Patient remained afebrile doing okay and now had stopped being hypotensive in the last 2 days 2. Pneumonia: Must encourage patient to get out of bed daily and patient not recently doing this in the past 2 days patient is cooperating work with physical therapy Patient is doing better but still very weak Continue current care If patient continues to improve and do not have any event another goal is to follow through with outpatient PT OT while awaiting for an outpatient hepatology appointment if Milvia suggest 3. Sepsis: Sepsis on from pneumonia also resolving Patient is off of Levophed pressor Continue to be out of bed and walk with physical therapy 4. Acute kidney injury: Patient with acute renal failure hide resolved as of today post 2 days being off of Levophed. Renal on the case 5. Ascites: The presumed ascites was not enough to be tapped I sent patient for ultrasound-guided paracentesis there were no fluid enough to tap and the paracentesis was then canceled along with all orders test that I had ordered 6. Elevated liver enzymes: Liver enzymes are stable but coagulation studies say different patient INR it has been around 3 Must continue to follow through and monitor 7. Liver cirrhosis: Patient is coagulopathic with stable with the coagulation studies. This is the hallmarks of the illness liver cirrhosis patient will need lead atg developer as a transfer or outpatient will continue to follow through and monitor PDMP PDMP Reviewed: Last Reviewed 06/03/25 18:33 by Ebony June MD Attestations 2 Medical Necessity Statement*: Patient awaiting bed to go to [facility] to medical floor. Patient has been downgraded since off of Levophed for the past 2 days. And it was been noted that now patient renal function had also resolved since off of Levophed. Patient is downgraded to transfer to [facility] unit from ICU Coding Level of Care Code 35593 Diagnoses Hypoglycemia E16.2 Pneumonia J18.9 Sepsis A41.9 Acute kidney injury N17.9 Ascites R18.8 Elevated liver enzymes R74.8 Hypokalemia E87.6 Hepatorenal syndrome K76.7 Hypotension I95.9 Anemia D64.9 History of coronary artery disease Z86.79 Portal hypertension K76.6 Splenomegaly R16.1 Time Spent (min) 35
[2025-06-03] MEDS: micafungin 100 MG in sodium chloride 0.9% (plus) 100 ML IV (21:22)
[2025-06-04] VITALS (68 sets, daily range): BP systolic 55–117; BP diastolic 43–77; PULSE 78–106; RESP 18–39; TEMP 36.4–36.7; O2SAT 68–93
--- NOTE | 2025-06-04 00:55 | PC.NURSE ---
Given in report that patient began requiring 3L NC today due to O2 dropping. Patient has continued to have similar experiences this evening and refusing to keep oxygen on stating Lacy never had to wear that before and I just want to sleep Educated patient that the reason he likely continues to wake up is due to the drop in his O2, but he still is refusing to keep oxygen on and not being compliant with wearing it. Other delivery devices offered to patient, who is adamant he does not need it, nor does he want to wear it. Continued attempts to educate and encourage patient. Provider notified.
--- NOTE | 2025-06-04 03:43 | PC.NURSE ---
Patients refuses to leave oxygen on even after being educated many times. He said Im ready to Asked patient if he would allow me to clean him up and replace PICC dressing as it is saturated. He declined again. Shortly after he hit his call light and asked to be adjusted in bed. Repositioned patient.
[2025-06-04] MEDS: piperacillin-tazobactam 3.375 GM in sodium chloride 0.9% (plus) 50 ML IV ×2 (05:07→12:00)
--- NOTE | 2025-06-04 05:30 | PC.NURSE ---
Patient continues to remove oxygen and stating its not working.
[2025-06-04] MEDS: albumin 25 G/100 ML BAG 60 G IV (08:19)
--- NOTE | 2025-06-04 10:08 | P.PN_ITS ---
Subjective 2 Subjective: no new c/o Medications: Reviewed: Yes Vitals/I&O/Wt Last Vital Signs Temp 98.0 F 06/04/25 04:06 Pulse 95 06/04/25 08:30 Resp 24 H 06/04/25 08:30 BP 97/69 06/04/25 08:30 Pulse Ox 86 L 06/04/25 08:30 O2 Del Method Nasal Cannula 06/03/25 18:00 O2 Flow Rate 3 06/03/25 18:00 06/03/25 06/04/25 06/04/25 22:59 06:59 14:59 Intake Total 500 / 1075 150 / 1225 Output Total 325 / 325 200 / 525 Balance 175 / 750 -50 / 700 Weight last 48 hrs Weight 95.9 kg Weight 96.797 kg Physical Exam 2 Narrative: Patient is awake alert, no distress, on room air Jaundiced sclera S1-S2 regular rate and rhythm per report Lungs clear with decreased breath sounds bilaterally per report Abdomen soft nontender per report Has been pedal edema Urinary Catheter Management: Holt: Cath Placed During This Visit: yes Reason for Continuing Indwelling Catheter: Accurate Measurement of Urinary Output in Critically Ill Patients Urinary Catheter Date of Insertion: 05/25/25 Urinary Catheter Time of Insertion: 12:00 Data 05/29/25 08:15 06/03/25 12:20 Micro: Microbiology 05/30/25 09:08 Blood Culture - Final Blood NO GROWTH AFTER 5 DAYS 05/30/25 09:06 Blood Culture - Final Blood NO GROWTH AFTER 5 DAYS A&P Assessment and plan 1. Acute kidney injury: Plan: 1. Acute kidney injury: Baseline creatinine was 1.0 in December 2024. Now has STEPHAN with a creatinine of 1.7-likely prerenal in the background history of liver cirrhosis. HRS is possible. on midodrine. Cr stable , off levophed BMP pendi ng GN unlikely but will check serologies-pending -Noted normal CK levels, UA with trace protein and no blood -Renal ultrasound noted, no obstruction - No indication for dialysis. 2. Liver cirrhosis: awaiting tranfer for further w/u 3. Hyponatremia:, Likely hypovolemic, monitor 4. Hypokalemia, repleted 5. Anemia 6. History of coronary artery disease with stents Patient evaluated his evaluation. 40 minutes. PDMP PDMP Reviewed: Not Reviewed Attestations 2 Medical Necessity Statement*: per josué Coding Level of Care Code Acute Code for Chg Fwd Diagnoses Acute kidney injury N17.9
--- NOTE | 2025-06-04 11:17 | PC.SOCIAL ---
IMM Update pg 2 of IMM Updated and reviewed w/ patient. Copy provided and copy dated, initialed and placed in chart.
[2025-06-04] MEDS: FUROsemide 10 mg/mL SDV 2mL 20 MG IVP (12:01)
[2025-06-04] MEDS: norepinephrine 4 MG/250 ML BAG 7.5 MG IV (17:01)
--- NOTE | 2025-06-04 17:52 | P.PN_ITS ---
Subjective 2 Subjective: ongoing low blood pressure and hypoxia. Vitals/I&O/Wt Last Vital Signs Temp 98.0 F 06/04/25 04:06 Pulse 101 H 06/04/25 17:14 Resp 20 H 06/04/25 17:14 BP 88/51 06/04/25 13:30 Pulse Ox 89 L 06/04/25 17:14 O2 Del Method Oxymask 06/04/25 12:37 O2 Flow Rate 50 06/04/25 17:14 FiO2 80 06/04/25 17:14 06/04/25 06/04/25 06/04/25 06:59 14:59 22:59 Intake Total 150 / 1225 110 / 110 Output Total 200 / 525 Balance -50 / 700 110 / 110 Weight last 48 hrs Weight 95.9 kg Weight 96.797 kg Physical Exam 2 Const: COMMON NORMALS: no acute distress and patient oriented x3 HENMT: COMMON NORMALS: normocephalic and atraumatic HEAD & SCALP: n ormocephalic and atraumatic Eye: COMMON NORMALS: Equal, round and reactive pupils present PUPIL: Yes Equal, round and reactive pupils present Lymph: LYMPHATIC: no lymphadenopathy noted Resp: OTHER: significant crackles throughout Cardio: OTHER: episodes of bradycardia GI: OTHER: mildly distended without fluid wave, no pain on palpation Neuro: COMMON NORMALS: patient oriented x3 and CN's II-XII intact bilaterally Psych: COMMON NORMALS: mental status grossly normal Urinary Catheter Management: Holt: Cath Placed During This Visit: yes Reason for Continuing Indwelling Catheter: Accurate Measurement of Urinary Output in Critically Ill Patients Urinary Catheter Date of Insertion: 05/25/25 Urinary Catheter Time of Insertion: 12:00 Data 05/29/25 08:15 06/03/25 12:20 Micro: Microbiology 05/30/25 09:08 Blood Culture - Final Blood NO GROWTH AFTER 5 DAYS 05/30/25 09:06 Blood Culture - Final Blood NO GROWTH AFTER 5 DAYS A&P Assessment and plan 1. Ascites: 2. Elevated liver enzymes: 3. Portal hypertension: 4. Liver cirrhosis: 5. Pneumonia: 6. Hypotension: Plan: 74 year old male presenting with hypotension, PNA and liver failure. 1.Resistant hypotension - attempt to wean off pressor over night and start on oral midodrine, however patient becoming increasingly hypotensive with decreased HR - restart IV pressor, change to dopamine for better inotropic effect - cont. on antibiotics - cont. antifungal mycofugin and they should be on for 2 weeks. - Follow-up on fungal culture which should be available in another day or 2. 2. Pneumonia: Sepsis Acute hypoxemic respiratory failure - significant crackles on lung exam, diuresis as tolerated, BP is limiting factor - advanced to HF NC, however the patient is not tolerating masks or NC well, desatting significantly when off. 4. Acute kidney injury: - nephrology consulted - Renal US without obstruction 5. Ascites: - The presumed ascites was not enough to be tapped cirrhosis - Liver enzymes are stable but coagulation studies say different patient INR it has been around 3 2/2 intrinsic liver disease - plan to transfer to [facility] when bed available. 7.: Patient is coagulopathic with stable with the coagulation studies. This is the hallmarks of the illness liver cirrhosis patient will need overhead cleaner maintainer as a transfer or outpatient will continue to follow through and monitor Disposition - patient is hypotensive and hypoxic today, has been refusing mask at time. - transfer to [facility] when bed is available - He is DNR. Currently worsening and back on pressors and high level O2 support. PDMP PDMP Reviewed: Not Reviewed Attestations 2 Medical Necessity Statement*: requiring pressors in ICU Critical Care Time: > 30 minutes for significant morbidity with cirrhosis, sepsis, hypotension on pressors and hypoxic respiratory failure Coding Level of Care Code Acute Code for Chg Fwd Diagnoses Ascites R18.8 Elevated liver enzymes R74.8 Portal hypertension K76.6 Liver cirrhosis K74.60 Pneumonia J18.9 Hypotension I95.9
--- NOTE | 2025-06-04 18:07 | PC.NURSE ---
Patient has had an increase in oxygen requirements this shift. Hubert barton and Marcy given. Patient has been placed on HHF. Patient has continuously taken oxygen out of nose. He has been educated on the importance of leaving oxygen in nose and continues to remove and move to forehead.
[2025-06-04 18:09] LABS: Hematocrit 23.2 % (37-53); Hemoglobin 6.90 g/dL (11.27-16.99); Mean Corpuscular HGB Conc 29.7 g/dL (30-55); Mean Corpuscular Hemoglobin 34.5 pg (27-33); Mean Corpuscular Volume 116.0 fl (82-101); Nucleated Red Blood Cells % 0.1 %; Red Blood Count 2.00 10^6/uL (3.85-5.65); White Blood Count 29.78 10^3/uL (3.29-11.43)
[2025-06-04 18:27] LABS: Anion Gap 20.4 (5-19); Blood Urea Nitrogen 25 mg/dL (8-23); Calcium 9.2 mg/dL (8.5-10.5); Carbon Dioxide 20 mmol/L (22-29); Chloride 107 mmol/L (98-107); Creatinine Clr Calc Pharmacy 55.6024; Glucose 97 mg/dL (65-115); Osmolality Calculated 302 mOsm/kg (285-295); Potassium 3.4 mmol/L (3.5-5.1); Sodium 144 mmol/L (136-145)
[2025-06-04 18:28] LABS: Slide Review Slide Review Perform
[2025-06-04 18:30] LABS: Platelet Count 9 10^3/cmm (157-399)
--- NOTE | 2025-06-04 20:08 | PC.NURSE ---
Patients family requested patient be transitioned to comfort care. Provider notified. Orders given and placing in MAR. Family would like all other medications discontinued once family has been able to visit.
--- NOTE | 2025-06-04 20:55 | PC.NURSE ---
Addendum entered by DONY Swift 06/04/25 21:27: Provider stated she would change patients code status to comfort measures only. Family still at bedside Original Note: Provider at bedside to discuss transition of care to comfort measures only. , Martha at bedside as well as hospital industrial equipment mechanic. Patient in agreement to change code status to comfort measures only. confirmed and reiterated with patient that is his wishes and he agreed. Patients said all family has visited and will tell staff when they are ready to withdraw medications.
[2025-06-04] MEDS: LORazepam 1 MG/0.5 ML injection IVP (21:19)
[2025-06-04] MEDS: morphine 4 mg/mL SDV 1 mL 2 MG IVP (21:20)
--- NOTE | 2025-06-04 22:33 | PC.NURSE ---
Addendum entered by DONY Swift 06/05/25 00:34: MTS notified Reference number [id number] Patients , Martha, took belongings that were brought in and at bedside. She confirmed patient had no jewelry on, and nothing was left behind that she wished to take with her. Original Note: Patients at bedside. case monitor showed asystole. Went in to confirm with charge nurse. Confirmed TOD at [id number]
--- NOTE | 2025-06-04 22:44 | PM.DDS ---
Discharge Providers DDS Date of Admission: 05/25/25 10:26 Date Summary Completed: 06/04/25 Attending Provider at Admission: Amber Cloud MD Time of : 22:27 Attending Provider at Discharge: Aguilar Woody MD Pronouncing Clinician: Ebony June Consults: Nephrology Primary Care Provider: Emeka Lovett MD DS Diagnoses Probable Cause of Sepsis associated hypotension Hospital Diagnoses 1. Pneumonia: 2. Ascites: 3. Liver cirrhosis: 4. Hypotension: 5. Elevated liver enzymes: 6. Portal hypertension: Reason for Visit Reason for Visit AMS Summary Date and Time of Time of : 22: Summary Summary: This is a 74-year-old male with medical history significant for liver cirrhosis end-stage who had presented with history of pneumonia and persistent hypotension and had been on pressors significant for Levophed. In the last 1 week patient had been off and on Levophed. Because of persistent hypotension in the setting of antibiotics and pressors although patient did have mycofugin initiated empirically on 06/01/2025 and instantly patient was able to be weaned off of the Levophed for 2 days only to required Levophed today. And then today patient also had increasing use and need for oxygen. Platelets dropped from 40s to 9 today. White count went up as well. Patient not looking good. Patient asked to be made comfort care and the agreed and they allowed the family member to come and say goodbye the clergy man came and the family protection specialist from the [facility] came and had the prayer with him. Levophed was turned off in few minutes patient passed at 22:27 Additional Data Advance directives?: No Discharge Plan Discharge Patient Disposition: Other Inst w Plan Readm Condition: Prescriptions: Discontinued nitroglycerin 0.4 mg tablet, sublingual 0.4 mg sublingual Q5M PRN (Reason: chest pain) Qty: 25 2RF Rx Instructions: do not exceed 3 doses per episode Discharge Order = DC NOW: Discharge Order (Routine); Ordered 06/04/25 Ordered By: Ebony June Referrals: Emeka Lovett MD [Primary Care Provider, Family Practice] Patient Instructions: Altered Mental Status (ED) DS Attestations Time Spent in /Discharge Care*: other Quality - AMI: AMI present?: No Quality - Stroke: CVA present?: No Symptom Onset Unknown: No Quality - VTE: VTE present?: No Deep Vein Thrombosis/Pulmonary Embolism Present on Admission: No Coding Level of Care Code Acute Code for Chg Fwd Diagnoses Pneumonia J18.9 Ascites R18.8 Liver cirrhosis K74.60 Hypotension I95.9 Elevated liver enzymes R74.8 Portal hypertension K76.6 Comment Patient at 22:27
--- NOTE | 2025-06-05 00:52 | PC.NURSE ---
Patient and , Martha took all belongings with her.
--- NOTE | 2025-06-05 05:36 | PC.NURSE ---
Pts body was placed in the morgue at 0015. pt was picked up by [facility] at 0350
--- NOTE | 2025-06-05 07:26 | P.DS_ITS ---
Discharge Providers Date of Admission: 05/25/25 10:26 Date of Discharge: June 04, 2025 Attending Provider at Admission: Amber Cloud MD Attending Provider at Discharge: Aguilar Woody MD Consults: Nephrology, surgery Primary Care Provider: Emeka Lovett MD Diagnoses at Discharge Discharge Diagnosis 1. Pneumonia: 2. Ascites: 3. Liver cirrhosis: 4. Hypotension: 5. Elevated liver enzymes: 6. Portal hypertension: Reason for Visit Reason for Visit: AMS Hospital Course Hospital Course This is a 74-year-old male with medical history significant for liver cirrhosis end-stage who had presented with history of pneumonia and persistent hypotension and had been on pressors significant for Levophed. In the last 1 week patient had been off and on Levophed. Because of persistent hypotension in the setting of antibiotics and pressors although patient did have mycofugin initiated empirically on 06/01/2025 and initially patient was able to be weaned off of the Levophed for 2 days, taking oral midodrine, however he then required pressors again on 06/04. With bradycardia, pressors were changed to agent with better inotropic effect. He continued to have increasing use and need for oxygen. Platelets dropped from 40s to 9 today. White count went up as well. Patient not looking good. Patient asked to be made comfort care and the agreed and they allowed the family member to come and say goodbye the clergyman came and the stud beef cattle farmer from the [employer] came and had prayer with him. Pressors were turned off in few minutes patient passed at 22:27. Physical Exam Urinary Catheter Management: Holt: Cath Placed During This Visit: yes Reason for Continuing Indwelling Catheter: Accurate Measurement of Urinary Output in Critically Ill Patients Urinary Catheter Date of Insertion: 05/25/25 Urinary Catheter Time of Insertion: 12:00 Discharge Data Studies Completed and Pending Completed Studies During Hospitalization Category Date Time Status CT abdomen pelvis wo con [id number] Stat Cat Scan 05/25/25 08:[address] head wo con* [id number] Stat Cat Scan 05/25/25 10:50 Completed CXRP [XR chest 1V portable [id number]] Routine Exams 05/28/25 10:36 Completed XR chest 1V portable [id number] Stat Exams 05/25/25 06:35 Completed MR MRCP [id number] Routine MRI 05/30/25 16:49 Completed NM hepatobiliary w phar* [id number] Routine Nuc Med 05/28/25 06:05 Completed CV. echo limited 30669 Stat Ultrasound 05/25/25 12:35 Completed US abdomen complete* [id number] Stat Ultrasound 05/26/25 12:08 Completed US abdomen lmt fluid [id number] Routine Ultrasound 05/30/25 07:34 Completed US renal BI* [id number] Routine Ultrasound 05/25/25 16:02 Completed Pending at discharge Category Date Time Status ABO/Rh Type Routine Lab 06/04/25 19:25 Ordered Complete Crossmatch Routine Lab 06/04/25 19:25 Ordered Immunofixation Serum Routine Lab 05/31/25 10:49 Received Miscellaneous Test Routine Lab 05/31/25 22:06 Received Miscellaneous Test Routine Lab 05/31/25 22:12 Received Platelets Leuko-Reduced Routine Lab 06/04/25 19:25 Ordered Radiology Impressions Abdomen/Pelvis CT 05/25/25 08:24 IMPRESSION: 1. Large LEFT inguinal hernia containing loops of colon with associated fluid and edema. This was present in 2020. Recommend surgery consultation. No evidence of high-grade obstruction. Inferior aspect of the inguinal hernia not entirely included on the study 2. Coarse heterogeneous cirrhotic liver with evidence portal hypertension. Mild splenomegaly. 3. Small RIGHT greater than LEFT pleural effusions with compressive atelectasis in the lung bases. 4. Mild ascites. 5. Diffuse body wall anasarca. Head CT 05/25/25 10:50 IMPRESSION: 1. No evidence of intracranial hemorrhage or mass effect. 2. No acute intracranial findings. Renal Ultrasound 05/25/25 16:02 IMPRESSION: 1. Small kidneys with slightly echogenic cortex suggesting chronic medical renal disease. No hydronephrosis. 2. Ascites incidentally noted. Hepatobiliary Scan Nuclear Medicine 05/28/25 06:05 IMPRESSION: See discussion above Chest X-Ray 05/28/25 10:36 IMPRESSION: PICC line terminates near the atrial caval junction. Abdomen Ultrasound 05/30/25 07:34 IMPRESSION: Mild perihepatic and perisplenic ascites. Insufficient fluid for safe paracentesis Cholangiopancreatography MRI 05/30/25 16:49 Impression: Very limited diagnostic examination due to significant patient motion and respiratory artifact 1. Few small gallbladder calculi. No significant gallbladder wall thickening on this study. Gallbladder is nondistended and appear normal size with thin wall. 2. Advanced liver cirrhosis with evidence of portal venous hypertension. 3. Perihepatic and perisplenic ascites. Ascites in the pelvis. 4. Moderate bilateral pleural effusions with compressive atelectasis in the lung bases. 5. Diffuse body wall anasarca. 6. Common bile duct cannot be evaluated due to significant artifact however no intrahepatic biliary ductal dilatation visualized. Laboratory Results WBC 29.78 10^3/uL (3.29-11.43) H 06/04/25 17:32 RBC 2.00 10^6/uL (3.85-5.65) L 06/04/25 17:32 Hgb 6.90 g/dL (11.27-16.99) L 06/04/25 17:32 Hct 23.2 % (37-53) L 06/04/25 17:32 MCV 116.0 fl (82-101) H 06/04/25 17:32 MCH 34.5 pg (27-33) H 06/04/25 17:32 MCHC 29.7 g/dL (30-55) L 06/04/25 17:32 RDW 18.1 % (12.1-15.1) H 06/04/25 17:32 Plt Count 9 10^3/cmm (157-399) L* 06/04/25 17:32 MPV 10.7 fL (7.4-10.4) H 06/04/25 17:32 Neut % (Auto) 88.1 % 06/04/25 17:32 Lymph % (Auto) 7.9 % 06/04/25 17:32 [place] % (Auto) 2.8 % 06/04/25 17:32 Eos % (Auto) 0.0 % 06/04/25 17:32 Baso % (Auto) 0.3 % 06/04/25 17:32 Neut # (Auto) 26.21 10^3/uL (1.8-7.7) H 06/04/25 17:32 Lymph # (Auto) 2.4 10^3/uL (0.8-4.8) 06/04/25 17:32 [place] # (Auto) 0.8 10^3/uL (0.2-0.9) 06/04/25 17:32 Eos # (Auto) 0.0 10^3/uL (0.0-0.8) 06/04/25 17:32 Baso # (Auto) 0.1 10^3/uL (0.0-0.1) 06/04/25 17:32 Nucleated RBC % (auto) 0.1 % 06/04/25 17:32 Nucleated RBCs # 0.0 /100WBC 06/04/25 17:32 PT 27.50 SECONDS (12.1-14.9) H 05/30/25 09:21 INR 2.39 (0.8-1.2) H 05/30/25 09:21 APTT 51.3 SECONDS (23.9-36.7) H 05/30/25 09:21 Sodium 144 mmol/L (136-145) 06/04/25 17:32 Potassium 3.4 mmol/L (3.5-5.1) L 06/04/25 17:32 Chloride 107 mmol/L (98-107) 06/04/25 17:32 Carbon Dioxide 20 mmol/L (22-29) L 06/04/25 17:32 Anion Gap 20.4 (5-19) H 06/04/25 17:32 BUN 25 mg/dL (8-23) H 06/04/25 17:32 Creatinine 1.4 mg/dL (0.7-1.2) H 06/04/25 17:32 GFR Calculation Not Reportable 06/04/25 17:32 Glucose 97 mg/dL (65-115) 06/04/25 17:32 POC Glucose 135 mg/dL (70-110) H 06/04/25 12:55 Calculated Osmolality 302 mOsm/kg (285-295) H 06/04/25 17:32 Lactic Acid 4.2 mmol/L (0.5-2.2) H* 05/25/25 06:29 Lactic Acid (Sepsis) 2.9 mmol/L (0.5-2.2) H 05/26/25 15:23 Calcium 9.2 mg/dL (8.5-10.5) 06/04/25 17:32 Magnesium 2.2 mg/dL (1.7-2.3) 05/29/25 08:15 Iron 77 ug/dL (59-158) 05/25/25 06:29 TIBC 94.46403 mcg/dl 05/25/25 06:29 % Saturation 81.0 % (20-50) H 05/25/25 06:29 Unsat Iron Binding > 17 ug/dL (112-347) L 05/25/25 06: Ferritin 1728 ng/mL (30-400) H 05/25/25 06:29 Total Bilirubin 4.5 mg/dL (0.15-1.2) H 05/31/25 10:49 GGT 86 U/L (8-61) H 05/26/25 04:04 AST 135 U/L (0-40) H 05/31/25 10:49 ALT 111 U/L (0-41) H 05/31/25 10:49 Alkaline Phosphatase 95 U/L (40-130) 05/31/25 10:49 Ammonia 32 umol/L (16-60) 05/25/25 06:29 Creatine Kinase 51 U/L (39-308) 05/25/25 06:29 Total Protein 5.3 g/dL (6.6-8.7) L 05/31/25 10:49 Albumin 3.8 g/dL (3.5-5.2) 05/31/25 10:49 Globulin 1.5 g/dL (1.3-4.6) 05/31/25 10:49 Jduht-4-Wyqabuntp 0.2 g/dL (0.2-0.3) 05/25/25 04:50 Xjcfc-5-Jlbyekuqz 0.3 g/dL (0.5-0.9) L 05/25/25 04:50 Nslc-7-Fnufayoh 0.2 g/dL (0.4-0.6) L 05/25/25 04:50 Xdgv-5-Tnezhogt 0.4 g/dL (0.2-0.5) 05/25/25 04:50 Gamma Globulins 1.3 g/dL (0.8-1.7) 05/25/25 04:50 Abnorm Protein Band 1 0.2 g/dL (NONE DETECTED) H 05/25/25 04:50 Triglycerides 129 mg/dL (0-150) 05/25/25 06:29 Cholesterol 159 mg/dL (0-200) 05/25/25 06:29 LDL Cholesterol, Calc 122 mg/dL (50-129) 05/25/25 06:29 Total VLDL Cholesterol 26 mg/dL (0-30) 05/25/25 06:29 HDL Cholesterol 11 mg/dL (60-100) L 05/25/25 06:29 Cholesterol/HDL Ratio 14.45 mg/dL (1.0-5.00) H 05/25/25 06:29 Lipase 32 U/L (13-60) 05/26/25 04:04 TSH 2.32 uIU/mL (0.27-4.20) 05/25/25 06:29 Urine Color [place] (Yellow) A 05/25/25 07:37 Urine Appearance Clear (CLEAR) 05/25/25 07:37 Urine pH 5.5 (5-7) 05/25/25 07:37 Ur Specific [place] 1.021 (1.005-1.030) 05/25/25 07:37 Urine Protein Trace (Negative) A 05/25/25 07:37 Urine Glucose (UA) Negative (Normal) 05/25/25 07:37 Urine Ketones Negative (Negative) 05/25/25 07:37 Urine Blood Negative (Negative) 05/25/25 07:37 Urine Nitrate Positive (Negative) A 05/25/25 07:37 Urine Bilirubin 2+ (Negative) H 05/25/25 07:37 Urine Urobilinogen 2.0 mg/dL (Negative) H 05/25/25 07:37 Ur Leukocyte Esterase Trace (Negative) A 05/25/25 07:37 Urine RBC 0-2 /hpf (0-2) 05/25/25 07:37 Urine WBC 0-5 /hpf (0-5) 05/25/25 07:37 Ur Squamous Epith Cells 0-5 /hpf (0-5) 05/25/25 07:37 Amorphous Sediment Not Reportable 05/25/25 07:37 Urine Bacteria None seen /hpf (NONE) 05/25/25 07:37 Hyaline Casts 11.57 /lpf 05/25/25 07:37 Fine Granular Casts 0-4 /lpf H 05/25/25 07:37 U Random Total Protein 21 mg/dL 05/25/25 07:47 Ur Random Sodium 10 mmol/L 05/25/25 07:47 Ur Random Chloride 11 mmol/L 05/25/25 07:47 Urine Creatinine 167 mg/dL (39-259) 05/25/25 07:47 U Abnormal Prot Band 2 0.1 g/dL (NONE DETECTED) H 05/25/25 04:50 U Abnormal Prot Band 3 Not Reportable 05/25/25 04:50 Pro Electrophoresis Int See note 05/25/25 04:50 ANNEL Screen Negative (NEGATIVE) 05/27/25 03:16 ANCA Screen Negative (NEGATIVE) 05/25/25 04:50 ANCA Titer Not Reportable 05/25/25 04:50 Anti-ds DNA IgG Ab TNP 05/27/25 03:16 Complement C3 68 mg/dL (90-180) L 05/25/25 06:29 Complement C4 18 mg/dL (10-40) 05/25/25 06:29 Hepatitis A IgM Ab Non-reactive (Nonreactive) 05/25/25 06:29 Hep Bs Antigen Non-reactive (Nonreactive) 05/25/25 06:29 Hep Bs Antigen Non-reactive (Nonreactive) 05/25/25 06:29 Hep Bs Antibody < 3.5 (11.5-1000) L 05/25/25 06:29 Hep Bs Antibody < 3.5 (11.5-1000) L 05/25/25 06:29 Hep B Core Total Ab Non-reactive (Nonreactive) 05/25/25 06:29 Hepatitis C Antibody Non-reactive (Nonreactive) 05/25/25 06:29 Hepatitis C Antibody Non-reactive (Nonreactive) 05/25/25 06:29 Mitochondrial DNA Scrn Negative (NEGATIVE) 05/27/25 03:16 Misc Test Reference Cancelled 05/31/25 22:12 Vitals Last Vital Signs Temp 97.5 F L 06/04/25 15:00 Pulse 100 06/04/25 20:00 Resp 20 H 06/04/25 20:00 BP 55/45 06/04/25 18:00 Pulse Ox 68 L 06/04/25 18:00 O2 Del Method Oxymask 06/04/25 12:37 O2 Flow Rate 60 06/04/25 20:00 FiO2 100 06/04/25 20:00 Discharge Plan Discharge Patient Disposition: Condition: Discharge Attestations Time Spent in Discharge Care*: greater than 30 min Quality Metrics Clinical Quality Measures [ No reported AMI, CVA or VTE this stay] Coding Level of Care Code Acute Code for Chg Fwd Diagnoses Pneumonia J18.9 Ascites R18.8 Liver cirrhosis K74.60 Hypotension I95.9 Elevated liver enzymes R74.8 Portal hypertension K76.6
== END 2025-06-04 22:27 | disposition expired | DRG 871 ==
LOC: ER 06:44 → ICU 11:04
PROVIDERS: Hospitalist; Internal Medicine; Admitting Provider Internal Medicine; Emergency Provider Family Medicine; PCP Family Medicine; Visit Provider Internal Medicine
DX: A41.9 Sepsis, unspecified organism (principal); I50.33 Acute on chronic diastolic (congestive) heart failure; J18.9 Pneumonia, unspecified organism; J96.01 Acute respiratory failure with hypoxia; K76.7 Hepatorenal syndrome; K76.6 Portal hypertension; G93.40 Encephalopathy, unspecified; D68.4 Acquired coagulation factor deficiency; E87.20 Acidosis, unspecified; E87.1 Hypo-osmolality and hyponatremia; N17.9 Acute kidney failure, unspecified; B49 Unspecified mycosis; K70.31 Alcoholic cirrhosis of liver with ascites; F10.11 Alcohol abuse, in remission; Z87.01 Personal history of pneumonia (recurrent); Z51.5 Encounter for palliative care; F17.210 Nicotine dependence, cigarettes, uncomplicated; D69.59 Other secondary thrombocytopenia; G47.33 Obstructive sleep apnea (adult) (pediatric); I25.10 Atherosclerotic heart disease of native coronary artery without angina pectoris; Z95.5 Presence of coronary angioplasty implant and graft; E78.5 Hyperlipidemia, unspecified; I25.2 Old myocardial infarction; E86.1 Hypovolemia; K80.20 Calculus of gallbladder without cholecystitis without obstruction; E87.6 Hypokalemia; R16.1 Splenomegaly, not elsewhere classified; W01.0XXA Fall on same level from slipping, tripping and stumbling without subsequent striking against object, initial encounter; Z66 Do not resuscitate; D64.9 Anemia, unspecified; K40.90 Unilateral inguinal hernia, without obstruction or gangrene, not specified as recurrent
CPT/HCPCS: 36415; 36416; 36573; 36592; 49083; 51702; 70450; 71045; 74176; 74181; 76700; 76705; 76770; 78227; 80048; 80053; 80061; 81001; 82140; 82436; 82550; 82575; 82728; 82962; 82977; 83516; 83540; 83550; 83605; 83690; 83735; 84155; 84156; 84165; 84300; 84443; 85025; 85610; 85730; 86036; 86038; 86160; 86225; 86334; 86705; 86706; 86709; 86803; 87040; 87150; 87205; 87340; 93005; 93308; 96365; 96366; 96375; 96376; 97110; 97163; 97167; 97530; 99285; A9537; C1751; J0456; J0696; J1938; J2060; J2248; J2270; J2543; J7030; J7050; J9999; P9046; P9047; Q0144; Q3014